=== PATIENT | male | born 1950 | race Caucasian/White ===

== ENCOUNTER 2019-05-25 13:21 | Inpatient (IN) | payer MEDICARE ==
[2019-05-25] MEDS ORDERED: SODIUM CHLORIDE 0.9% 1,000 ML IV ONE (15:03)
[2019-05-25 16:03] LABS: Basophils # (A) 0.1 k/uL (0-0.2); Basophils % (A) 2 %; Eosinophils # (A) 0.1 k/uL (0-0.7); Eosinophils % (A) 1 %; HCT 46.6 % (39.0-53.0); HGB 13.2 gm/dL (13.0-17.5); Hypochromasia Marked; Lymphocytes # (A) 0.8 k/uL (1.0-4.8); Lymphocytes % (A) 12 %; MCH 25.5 pg (25.0-35.0); MCHC 28.4 g/dL (31.0-37.0); MCV 89.6 fL (80.0-100.0); Mean Platelet Volume 8.9; Monocytes # (A) 0.6 k/uL (0-1.0); Monocytes % (A) 9 %; Neutrophils # (A) 5.1 k/uL (1.3-7.7); Neutrophils % (A) 75 %; Platelet Count 191 k/uL (150-450); RDW 15.3 % (11.5-15.5); WBC 6.9 k/uL (3.8-10.6)
[2019-05-25 16:05] LABS: Appearance,Urine Clear (Clear); Bilirubin,Urine Negative (Negative); Blood,Urine Negative (Negative); Color,Urine Light Yellow; Glucose,Urine (UA) Negative (Negative); Ketones,Urine Negative (Negative); Leukocyte Esterase,Urine Negative (Negative); Nitrite,Urine Negative (Negative); Protein,Urine Negative (Negative); Specific Gravity,Urine 1.006 (1.001-1.035); Urobilinogen,Urine <2.0 mg/dL (<2.0)
[2019-05-25 16:06] LABS: Albumin 3.9 g/dL (3.5-5.0); Potassium 4.8 mmol/L (3.5-5.1); Total Bilirubin 1.4 mg/dL (0.2-1.3); Total Protein 6.5 g/dL (6.3-8.2)
[2019-05-25 16:11] LABS: Partial Thromboplastin Time 24.7 sec (22.0-30.0)
--- NOTE | 2019-05-25 16:38 | ED ---
Altered Mental Status HPI - General Chief Complaint: Altered Mental Status Stated Complaint: Weakness Time Seen by Provider: 05/25/19 14:47 Source: EMS Mode of arrival: EMS Limitations: no limitations - History of Present Illness Initial Comments: Patient is a 68-year-old male, Past medical history of A. fib, heart failure, COPD, dementia, hypertension, presenting to the emergency Department with altered mental status per family members. Sister states patient lives alone at his house and does have a visiting physician. The past 2 days family members state he is not speaking appropriately and seems confused. Patient has been hospitalized in the past for sepsis as well as UTI that cause confusion. Patient is denying any pain at this time. Patient is having some discharge from his bilateral lower legs. Patient has been having an ongoing issue with bilateral lower leg cellulitis. Patient is currently not taking medicine for this. Patient denies any falls. Patient's family members and visiting physicians states they do not think patient has been taking his at home medications. - Related Data Home Medications Medication Instructions Recorded Confirmed Metoprolol Tartrate [Lopressor] 100 mg PO BID 08/03/15 05/25/19 Omeprazole [PriLOSEC] 40 mg PO DAILY 06/19/16 05/25/19 Sertraline HCl 50 mg PO DAILY 06/19/16 05/25/19 Allopurinol [Zyloprim] 300 mg PO DAILY 05/25/19 05/25/19 Apixaban [Eliquis] 5 mg PO BID 05/25/19 05/25/19 Aspirin EC [Ecotrin] 325 mg PO DAILY 05/25/19 05/25/19 Atorvastatin [Lipitor] 40 mg PO HS 05/25/19 05/25/19 Colchicine 0.6 mg PO BID 05/25/19 05/25/19 Ergocalciferol [Vitamin D2] 50,000 unit PO Q7D 05/25/19 05/25/19 Furosemide [Lasix] See Taper PO DIRECTED 05/25/19 05/25/19 Krill Oil 1,000 mg PO DAILY 05/25/19 05/25/19 Lisinopril [Prinivil] 5 mg PO DAILY 05/25/19 05/25/19 Loperamide HCl [Imodium A-D] 2 mg PO QID PRN 05/25/19 05/25/19 Nitroglycerin Sl Tabs [Nitrostat] 0.4 mg SUBLINGUAL Q5M PRN 05/25/19 05/25/19 Oxybutynin Chloride [Oxybutynin 10 mg PO DAILY 05/25/19 05/25/19 Chloride ER] Spironolactone 50 mg PO BID 05/25/19 05/25/19 Tamsulosin [Flomax] 0.8 mg PO [id number] 05/25/19 05/25/19 metFORMIN HCL [Glucophage] 500 mg PO BID 05/25/19 05/25/19 Previous Rx's Medication Instructions Recorded Digoxin [Lanoxin] 125 mcg PO DAILY #30 tab 08/07/15 Montelukast [Singulair] 10 mg PO DAILY #0 NS 08/07/15 Allergies Allergy/AdvReac Type Severity Reaction Status Date / Time No Known Allergies Allergy Verified 05/25/19 15:18 Review of Systems ROS Statement: Those systems with pertinent positive or pertinent negative responses have been documented in the HPI. ROS Other: All systems not noted in ROS Statement are negative. Past Medical History Past Medical History: Atrial Fibrillation, Heart Failure, COPD, Dementia, GERD/Reflux, Hyperlipidemia, Hypertension, Myocardial Infarction (NM), Prostate Disorder, Renal Disease, Skin Disorder Additional Past Medical History / Comment(s): Mild dementia, cardiomyopathy, la st known EF was 20-25%, afib with RVR in past, chronic lower leg edema, chronic vascular cellulitis lower extremities, lumbar DDD, back pain, previous history of GI bleed, doudenitis, diverticulum, BPH, athrities bilateral knees and back, COPD, chronic lower extremity once, history of fall Last Myocardial Infarction Date:: 07/2015 History of Any Multi-Drug Resistant Organisms: None Reported Past Surgical History: Heart Catheterization, Orthopedic Surgery Additional Past Surgical History / Comment(s): 2002 cardiac cath-no intervention, R knee arthroscopy, L knee I & D for prepatellar bursa infection - arthrotomy, PICC line insertion with eventual removal, lumbar and bilateral knee steroid injections, cataract surgery bilaterally,EGD/colonoscopy. Past Anesthesia/Blood Transfusion Reactions: No Reported Reaction Past Psychological History: Anxiety, Depression Smoking Status: Never smoker Past Alcohol Use History: Occasional Past Drug Use History: None Reported - Past Family History Father History Unknown: Yes Family Medical History: Coronary Artery Disease (CAD), Myocardial Infarction (NM) Additional Family Medical History / Comment(s): Father had CABG. He passed from a NM at the age of 62 yrs. Mother History Unknown: Yes Family Medical History: Cancer, Congestive Heart Failure (CHF), COPD, Diabetes Mellitus Additional Family Medical History / Comment(s): Mother had lung cancer. She was a smoker. She at the age of 62 yrs. General Exam - General Exam Comments Initial Comments: GENERAL: Well-nourished, seems slightly confused, is not sure why he is in the ER. HEAD: Atraumatic, normocephalic. Mild swelling to the left side of his face. EYES: Pupils equal round and reactive to light, extraocular movements intact, sclera anicteric, conjunctiva are normal. ENT: TMs normal, nares patent, oropharynx clear without exudates. Moist mucous membranes. NECK: Normal range of motion, supple without lymphadenopathy or JVD. LUNGS: Decreased breath sounds bilateral lower lobes, No wheezes rales or rhonchi. HEART: Irregular rate and rhythm without murmurs, rubs or gallops. ABDOMEN: Soft, nontender, normoactive bowel sounds. No guarding, no rebound. No masses appreciated. : Deferred EXTREMITIES: Bilateral lower leg cellulitis with small open sores that are actively weeping. NEUROLOGICAL: Cranial nerves II through XII grossly intact. Normal speech, normal gait. PSYCH: Normal mood, normal affect. SKIN: Warm, Dry, normal turgor. Limitations: no limitations Course Vital Signs 05/25/19 05/25/19 05/25/19 13:36 14:42 16:00 Temperature 97.4 F L Pulse Rate 112 H 88 91 Respiratory 20 18 Rate Blood Pressure 123/95 O2 Sat by Pulse 97 96 Oximetry 05/25/19 17:00 Temperature Pulse Rate 83 Respiratory 18 Rate Blood Pressure 128/96 O2 Sat by Pulse 96 Oximetry Medical Decision Making - Medical Decision Making Patient is a 68-year-old male presenting with altered mental status. Patient is afebrile upon arrival, patient has no pain. Patient has bilateral lower leg cellulitis. There is no white count, coags are normal, lactic acid is 2.3, troponin is 0.064. UA is normal, no signs of infection. Chest x-ray shows c ardiomegaly, no acute processes. CT of the brain shows no acute abnormalities. Patient will be admitted for bilateral lower leg cellulitis as well as cardiac monitoring. Patient is agreement with this plan of care. Patient will be started on antibiotics as well as continue with fluids. Case discussed with Dr. Worley. Patient accepted by Dr. Cruz. - Lab Data Result diagrams: 05/25/19 15:40 05/25/19 15:40 Lab Results 05/25/19 05/25/19 05/25/19 Range/Units 15:40 15:40 15:40 WBC 6.9 (3.8-10.6) k/uL RBC 5.20 (4.30-5.90) m/uL Hgb 13.2 (13.0-17.5) gm/dL Hct 46.6 (39.0-53.0) % MCV 89.6 (80.0-100.0) fL MCH 25.5 (25.0-35.0) pg MCHC 28.4 L (31.0-37.0) g/dL RDW 15.3 (11.5-15.5) % Plt Count 191 (150-450) k/uL Neutrophils % 75 % Lymphocytes % 12 % Monocytes % 9 % Eosinophils % 1 % Basophils % 2 % Neutrophils # 5.1 (1.3-7.7) k/uL Lymphocytes # 0.8 L (1.0-4.8) k/uL Monocytes # 0.6 (0-1.0) k/uL Eosinophils # 0.1 (0-0.7) k/uL Basophils # 0.1 (0-0.2) k/uL Hypochromasia Marked PT 11.0 (9.0-12.0) sec INR 1.0 (<1.2) APTT 24.7 (22.0-30.0) sec Sodium 139 (137-145) mmol/L Potassium 4.8 (3.5-5.1) mmol/L Chloride 103 (98-107) mmol/L Carbon Dioxide 25 (22-30) mmol/L Anion Gap 11 mmol/L BUN 27 H (9-20) mg/dL Creatinine 1.03 (0.66-1.25) mg/dL Est GFR (CKD-EPI)AfAm 85 (>60 ml/min/1.73 sqM) Est GFR (CKD-EPI)NonAf 74 (>60 ml/min/1.73 sqM) Glucose 91 (74-99) mg/dL Lactic Ac Sepsis Rflx Plasma Lactic Acid [place] (0.7-2.0) mmol/L Calcium 9.0 (8.4-10.2) mg/dL Total Bilirubin 1.4 H (0.2-1.3) mg/dL AST 40 (17-59) U/L ALT 23 (21-72) U/L Alkaline Phosphatase 57 (38-126) U/L Troponin I (0.000-0.034) ng/mL Total Protein 6.5 (6.3-8.2) g/dL Albumin 3.9 (3.5-5.0) g/dL Urine Color Urine Appearance (Clear) Urine pH (5.0-8.0) Ur Specific [place] (1.001-1.035) Urine Protein (Negative) Urine Glucose (UA) (Negative) Urine Ketones (Negative) Urine Blood (Negative) Urine Nitrite (Negative) Urine Bilirubin (Negative) Urine Urobilinogen (<2.0) mg/dL Ur Leukocyte Esterase (Negative) 05/25/19 05/25/19 05/25/19 Range/Units 15:40 15:40 15:40 WBC (3.8-10.6) k/uL RBC (4.30-5.90) m/uL Hgb (13.0-17.5) gm/dL Hct (39.0-53.0) % MCV (80.0-100.0) fL MCH (25.0-35.0) pg MCHC (31.0-37.0) g/dL RDW (11.5-15.5) % Plt Count (150-450) k/uL Neutrophils % % Lymphocytes % % Monocytes % % Eosinophils % % Basophils % % Neutrophils # (1.3-7.7) k/uL Lymphocytes # (1.0-4.8) k/uL Monocytes # (0-1.0) k/uL Eosinophils # (0-0.7) k/uL Basophils # (0-0.2) k/uL Hypochromasia PT (9.0-12.0) sec INR (<1.2) APTT (22.0-30.0) sec Sodium (137-145) mmol/L Potassium (3.5-5.1) mmol/L Chloride (98-107) mmol/L Carbon Dioxide (22-30) mmol/L Anion Gap mmol/L BUN (9-20) mg/dL Creatinine (0.66-1.25) mg/dL Est GFR (CKD-EPI)AfAm (>60 ml/min/1.73 sqM) Est GFR (CKD-EPI)NonAf (>60 ml/min/1.73 sqM) Glucose (74-99) mg/dL Lactic Ac Sepsis Rflx Plasma Lactic Acid [place] 2.3 H* (0.7-2.0) mmol/L Calcium (8.4-10.2) mg/dL Total Bilirubin (0.2-1.3) mg/dL AST (17-59) U/L ALT (21-72) U/L Alkaline Phosphatase (38-126) U/L Troponin I 0.064 H* (0.000-0.034) ng/mL Total Protein (6.3-8.2) g/dL Albumin (3.5-5.0) g/dL Urine Color Light Yellow Urine Appearance Clear (Clear) Urine pH 5.0 (5.0-8.0) Ur Specific [place] 1.006 (1.001-1.035) Urine Protein Negative (Negative) Urine Glucose (UA) Negative (Negative) Urine Ketones Negative (Negative) Urine Blood Negative (Negative) Urine Nitrite Negative (Negative) Urine Bilirubin Negative (Negative) Urine Urobilinogen <2.0 (<2.0) mg/dL Ur Leukocyte Esterase Negative (Negative) 05/25/19 Range/Units 16:13 WBC (3.8-10.6) k/uL RBC (4.30-5.90) m/uL Hgb (13.0-17.5) gm/dL Hct (39.0-53.0) % MCV (80.0-100.0) fL MCH (25.0-35.0) pg MCHC (31.0-37.0) g/dL RDW (11.5-15.5) % Plt Count (150-450) k/uL Neutrophils % % Lymphocytes % % Monocytes % % Eosinophils % % Basophils % % Neutrophils # (1.3-7.7) k/uL Lymphocytes # (1.0-4.8) k/uL Monocytes # (0-1.0) k/uL Eosinophils # (0-0.7) k/uL Basophils # (0-0.2) k/uL Hypochromasia PT (9.0-12.0) sec INR (<1.2) APTT (22.0-30.0) sec Sodium (137-145) mmol/L Potassium (3.5-5.1) mmol/L Chloride (98-107) mmol/L Carbon Dioxide (22-30) mmol/L Anion Gap mmol/L BUN (9-20) mg/dL Creatinine (0.66-1.25) mg/dL Est GFR (CKD-EPI)AfAm (>60 ml/min/1.73 sqM) Est GFR (CKD-EPI)NonAf (>60 ml/min/1.73 sqM) Glucose (74-99) mg/dL Lactic Ac Sepsis Rflx Y Plasma Lactic Acid [place] (0.7-2.0) mmol/L Calcium (8.4-10.2) mg/dL Total Bilirubin (0.2-1.3) mg/dL AST (17-59) U/L ALT (21-72) U/L Alkaline Phosphatase (38-126) U/L Troponin I (0.000-0.034) ng/mL Total Protein (6.3-8.2) g/dL Albumin (3.5-5.0) g/dL Urine Color Urine Appearance (Clear) Urine pH (5.0-8.0) Ur Specific [place] (1.001-1.035) Urine Protein (Negative) Urine Glucose (UA) (Negative) Urine Ketones (Negative) Urine Blood (Negative) Urine Nitrite (Negative) Urine Bilirubin (Negative) Urine Urobilinogen (<2.0) mg/dL Ur Leukocyte Esterase (Negative) - EKG Data EKG Comments: Ventricular rate 87, QRS 96, QTC 493. A. fib, ST depressions in V1 and V2 or V3. Disposition Clinical Impression: Altered mental status, Bilateral lower leg cellulitis Disposition: ADMITTED IP TO THIS [facility] Condition: Stable Is patient prescribed a controlled substance at d/c from ED?: No Referrals: Pj Pal MD [Primary Care Provider] - 1-2 days Decision Date: 05/25/19 Decision Time: 18:50
--- NOTE | 2019-05-25 16:56 | XR ---
EXAMINATION TYPE: XR chest 2V DATE OF EXAM: 05/25/2019 COMPARISON: Prior chest x-ray 06/20/2016 HISTORY: Altered mental status TECHNIQUE: Frontal and lateral views of the chest are obtained. FINDINGS: There is no focal air space opacity, pleural effusion, or pneumothorax seen. Central vasc ularity is somewhat increased. The cardiac silhouette size is stable and enlarged. The osseous stru ctures are intact. Prominent lung volumes with flattening the hemidiaphragms suggests underlying COPD . Patient is rotated. There are overlying cardiac leads. IMPRESSION: Cardiomegaly. Rotated exam.
--- NOTE | 2019-05-25 18:31 | CT ---
EXAMINATION: CT brain wo con DATE AND TIME: 05/25/2019 5:40 PM CLINICAL INDICATION: [facility]; AMS TECHNIQUE: Standard departmental protocol.; 1173.4; COMPARISON: None. FINDINGS: The calvarium is intact. There is no intracranial hemorrhage. There is no intracranial mass or mass effect. No definite new intra-axial or extra-axial attenuation defect. Bilateral low attenuation within the bloom radiata and centrum semiovale noted symmetrically, entire ly nonspecific but usually reflecting small vessel ischemic change. The paranasal sinuses, middle ear cavities, and mastoid sinus air cells are clear. The orbits are unremarkable. IMPRESSION: NO ACUTE PROCESS.
[2019-05-25] MEDS ORDERED: NALOXONE 0.4 MG/ML 1 ML VIAL IV PRN (18:48)
[2019-05-25] MEDS ORDERED: ACETAMINOPHEN TAB 325 MG TAB PO PRN (18:48)
[2019-05-25] MEDS ORDERED: ONDANSETRON 4 MG/2 ML VIAL IVP PRN (18:48)
[2019-05-25] MEDS: SODIUM CHLORIDE 0.9% 1,000 ML IV SCH (19:14)
[2019-05-25 22:28] VITALS: BMI 40.9
[2019-05-26 07:19] LABS: Glucose,Whole Blood 89 mg/dL (75-99)
[2019-05-26] MEDS: SPIRONOLACTONE 25 MG TAB PO SCH ×2 (07:53→08:51)
[2019-05-26] MEDS: ATORVASTATIN 40 MG TAB PO SCH (07:54)
[2019-05-26] MEDS: METOPROLOL TARTRATE 50 MG TAB PO SCH ×2 (07:54→08:51)
[2019-05-26] MEDS: metFORMIN 500 MG TAB PO SCH ×2 (07:54→08:51)
[2019-05-26] MEDS: APIXABAN 5 MG TAB PO SCH ×2 (07:54→08:52)
[2019-05-26] MEDS: COLCHICINE 0.6 MG EACH PO SCH ×2 (07:54→08:51)
[2019-05-26] MEDS: MONTELUKAST 10 MG TAB PO SCH (08:51)
[2019-05-26] MEDS: TAMSULOSIN 0.4 MG CAP.ER.24H PO SCH (08:51)
[2019-05-26] MEDS: PANTOPRAZOLE 40 MG TABLET PO SCH (08:51)
[2019-05-26] MEDS: ASPIRIN 325 MG TAB PO SCH (08:51)
[2019-05-26] MEDS: FUROSEMIDE 10 MG/ML 4 ML VIAL IV SCH (08:51)
[2019-05-26] MEDS: ALLOPURINOL 300 MG TAB PO SCH (08:51)
[2019-05-26] MEDS: DIGOXIN 125 MCG TAB PO SCH (08:51)
[2019-05-26] MEDS: LISINOPRIL 5 MG TAB PO SCH (08:51)
[2019-05-26] MEDS: SERTRALINE 50 MG TAB PO SCH (08:52)
[2019-05-26 09:13] LABS: Albumin 4.1 g/dL (3.5-5.0); Calcium 9.8 mg/dL (8.4-10.2); Total Bilirubin 1.5 mg/dL (0.2-1.3); Total Protein 6.7 g/dL (6.3-8.2)
[2019-05-26] MEDS: OXYBUTYNIN 10 MG TAB.ER.24 PO SCH (10:36)
[2019-05-26] MEDS: SODIUM CHLORIDE 0.9% 1,000 ML IV SCH (10:36)
[2019-05-26 12:05] LABS: Glucose,Whole Blood 97 mg/dL (75-99)
--- NOTE | 2019-05-26 14:29 | P.CON ---
Consult Note - . Consult date: 05/26/19 Assessment/Plan:: This is a 68-year-old gentleman being seen by the wound care for multiple ulcerations to bilateral lower extremities. Patient has history of cellulitis. Patient denies any history of peripheral vascular disease. Patient presents with erythema, edema, multiple open ulcerations to bilateral lower extremities. Extremities are weeping sanguineous fluid. Review of systems: integumentary:reports redness, edema, open wounds to bilateral legs. Denies rashes or itching Physical exam: integumentary:see HPI Assessment/plan: 1. Nonpressure nonhealing ulceration with fatty layer exposure to bilateral lower extremities.aapply triad to bilateral lower extremities wrap with rolled gauze and secure with 2 layers of Tubigrip to help with swelling. Elevate legs 3 times a day for 30 minutes, vascular workup to be completed. 2. Venous stasis ulcerations. See above Thank you for the consultation any questions please contact the wound care center. DNP note has been reviewed and discussed with Dr. Sepulveda and the impression and plan of care has been directed as dictated.
--- NOTE | 2019-05-26 14:50 | P.HPIM ---
History of Present Illness H&P Date: 05/26/19 This is a 68-year-old morbidly obese male patient of Dr. Pal with past medical history of hypertension with hypertensive cardiovascular disease, ischemic cardiopathy, chronic systolic heart failure, non-ST elevated myocardial infarction, COPD, chronic A. fib and chronic edema and mild dementia. Patient presented to [facility] emergency center with altered mental status and confusion as well as concern that he was not taking this medications as relayed by the family members but the patient at the time of this evaluation adamantly denies any confusion. He states that he came in due to lower extremity redness and edema with wounds. He states he has had this for many years but is currently in exacerbation. Legs are more red than his normal. It is sometimes itchy. He states his edema to the lower extremities is about his baseline. Initial vital signs: Afebrile, heart rate 112, blood pressure 123/95, pulse ox 97%. CBC was unremarkable. BUN 27 creatinine 1.03, blood sugar 91. CAT scan of the brain showed no acute abnormalities. Total bilirubin 1.4 and other liver function tests within normal limits, albumin 3.9. Initial lactic acid 2.3 and repeat 1.4. ProBNP 6210. Troponin 0.064. Urinalysis negative for infection. Patient was started on ceftriaxone and admitted to the cardiac stepdown unit. Consults added for cardiology for elevated troponin and repeat troponins of been ordered as well as echocardiogram. Consult with Dr. Soares added for lower extremity cellulitis and wound care consult as well. Dr. Moran has been consulted regarding venous stasis. Review of Systems Constitutional: Reports weakness, Denies anorexia, Denies chills, Denies fatigue, Denies fever, Denies lethargy, Denies malaise, Denies poor appetite Eyes: denies blurred vision, denies pain Ears, nose, mouth and throat: Denies dysphagia, Denies nasal congestion, Denies nasal discharge, Denies vertigo Cardiovascular: Reports edema, Reports leg edema, Denies shortness of breath, Denies syncope Respiratory: Denies cough, Denies cough with sputum, Denies dyspnea, Denies excessive sputum, Denies hemoptysis, Denies home oxygen, Denies respiratory infections, Denies wheezing Gastrointestinal: Denies abdominal pain, Denies diarrhea, Denies loss of appetite, Denies nausea, Denies vomiting Genitourinary: Denies dysuria, Denies urinary hesitancy, Denies urinary retention Musculoskeletal: Reports muscle weakness, Denies frequent falls, Denies myalgias Integumentary: Reports color changes, Reports darkening of skin, Reports wounds, Denies pruritus, Denies rash Neurological: Reports change in mentation, Denies change in speech, Denies numbness, Denies weakness Psychiatric: Denies anxiety, Denies depression Past Medical History Past Medical History: Atrial Fibrillation, Heart Failure, COPD, Dementia, GERD/Reflux, Hyperlipidemia, Hypertension, Myocardial Infarction ([place]), Prostate Disorder, Renal Disease, Skin Disorder Additional Past Medical History / Comment(s): Mild dementia, cardiomyopathy, last known EF was 20-25%, afib with RVR in past, chronic lower leg edema, chronic vascular cellulitis lower extremities, lumbar DDD, back pain, previous history of GI bleed, doudenitis, diverticulum, BPH, athrities bilateral knees and back, COPD, chronic lower extremity once, history of fall Last Myocardial Infarction Date:: 07/2015 History of Any Multi-Drug Resistant Organisms: None Reported Past Surgical History: Heart Catheterization, Orthopedic Surgery Additional Past Surgical History / Comment(s): 2002 cardiac cath-no intervention, R knee arthroscopy, L knee I & D for prepatellar bursa infection -arthrotomy, PICC line insertion with eventual removal, lumbar and bilateral knee steroid injections, cataract surgery bilaterally,EGD/colonoscopy. Past Anesthesia/Blood Transfusion Reactions: No Reported Reaction Past Psychological History: Anxiety, Depression Additional Psychological History / Comment(s): Pt lives alone. He ambulates with a walker. His brother, Jason comes to his home 3 days a week and does pt's shopping and cleans his home. His sister, Katy transports him to [place] since he no longer drives. He is a of 2 yrs. VNA nurse comes to his home once a month to manage medications and check him over. Smoking Status: Never smoker Past Drug Use History: None Reported - Past Family History Father History Unknown: Yes Family Medical History: Coronary Artery Disease (CAD), Myocardial Infarction ([place]) Additional Family Medical History / Comment(s): Father had CABG. He passed from a [place] at the age of 62 yrs. Mother History Unknown: Yes Family Medical History: Cancer, Congestive Heart Failure (CHF), COPD, Diabetes Mellitus Additional Family Medical History / Comment(s): Mother had lung cancer. She was a smoker. She at the age of 62 yrs. Medications and Allergies Home Medications Medication Instructions Recorded Confirmed Type Metoprolol Tartrate [Lopressor] 100 mg PO BID 08/03/15 05/25/19 History Digoxin [Lanoxin] 125 mcg PO DAILY #30 tab 08/07/15 05/25/19 Rx Montelukast [Singulair] 10 mg PO DAILY #0 NS 08/07/15 05/25/19 Rx Omeprazole [PriLOSEC] 40 mg PO DAILY 06/19/16 05/25/19 History Sertraline HCl 50 mg PO DAILY 06/19/16 05/25/19 History Allopurinol [Zyloprim] 300 mg PO DAILY 05/25/19 05/25/19 History Apixaban [Eliquis] 5 mg PO BID 05/25/19 05/25/19 History Aspirin EC [Ecotrin] 325 mg PO DAILY 05/25/19 05/25/19 History Atorvastatin [Lipitor] 40 mg PO HS 05/25/19 05/25/19 History Colchicine 0.6 mg PO BID 05/25/19 05/25/19 History Ergocalciferol [Vitamin D2] 50,000 unit PO Q7D 05/25/19 05/25/19 History Furosemide [Lasix] See Taper PO DIRECTED 05/25/19 05/25/19 History Krill Oil 1,000 mg PO DAILY 05/25/19 05/25/19 History Lisinopril [Prinivil] 5 mg PO DAILY 05/25/19 05/25/19 History Loperamide HCl [Imodium A-D] 2 mg PO QID PRN 05/25/19 05/25/19 History Nitroglycerin Sl Tabs [Nitrostat] 0.4 mg SUBLINGUAL Q5M PRN 05/25/19 05/25/19 History Oxybutynin Chloride [Oxybutynin 10 mg PO DAILY 05/25/19 05/25/19 History Chloride ER] Spironolactone 50 mg PO BID 05/25/19 05/25/19 History Tamsulosin [Flomax] 0.8 mg PO PC-BRKFST 05/25/19 05/25/19 History metFORMIN HCL [Glucophage] 500 mg PO BID 05/25/19 05/25/19 History Allergies Allergy/AdvReac Type Severity Reaction Status Date / Time No Known Allergies Allergy Verified 05/25/19 15:18 Physical Exam Vitals: Vital Signs Temp Pulse Pulse Resp BP BP Pulse Ox 05/26/19 11:33 97 18 05/26/19 11:02 98.6 F 97 18 99/66 94 L 05/26/19 08:00 97.6 F 93 18 131/80 98 05/26/19 04:00 97.6 F 91 106/68 96 05/26/19 00:00 98.2 F 68 18 113/67 96 05/25/19 22:17 97.8 F 86 18 128/88 97 05/25/19 20:17 97 F L 92 18 111/80 96 05/25/19 17:00 83 18 128/96 96 05/25/19 16:00 91 05/25/19 14:42 88 18 96 05/25/19 13:36 97.4 F L 112 H 20 123/95 97 Intake and Output 05/25/19 05/26/19 05/26/19 22:59 06:59 14:59 Output Total 400 400 Balance -400 -400 Output: Urine 400 400 Other: Voiding Method Toilet # Voids 1 # Bowel Movements 1 Weight 108.2 kg - Constitutional General appearance: cooperative, no distress, morbidly obese. - EENT Eyes: Reports anicteric sclerae, Reports normal apperance, ENT: Reports hard of hearing, Reports normal oropharynx, D - Neck Neck: Reports normal ROM, Denies lymphadenopathy, Denies rigidity, Denies stridor, Denies thyromegaly Carotids: bilateral: upstroke normal, upstroke delayed Thyroid: bilateral: normal size - Respiratory Respiratory: bilateral: diminished, dullness, no rales, rhonchi, wheezing - Cardiovascular Rhythm: irregularly irregular Heart sounds: normal: S1, S2 Abnormal Heart Sounds: Reports systolic murmur, Reports S3 Gallop - Gastrointestinal General gastrointestinal: Reports hepatomegaly, Reports normal bowel sounds, Reports soft, no tenderness - Integumentary acute and chronic vascular cellulitis of the lower extremity from the knee down with open ulcer right pretibial, toes are dusky blue color 3+ pedal edema bilaterally, dorsalis pedis +2. - Neurologic Neurologic: CNII-XII intact - Musculoskeletal Musculoskeletal: Reports gait not evaluated, Reports generalized weakness, - Psychiatric Psychiatric: A&O x's 3, appropriate affect, intact judgment & insight Results CBC & Chem 7: 05/25/19 15:40 05/26/19 08:27 Labs: Abnormal Lab Results - Last 24 Hours (Table) 05/25/19 05/25/19 05/25/19 Range/Units 15:40 15:40 15:40 MCHC 28.4 L (31.0-37.0) g/dL Lymphocytes # 0.8 L (1.0-4.8) k/uL D-Dimer (<0.60) mg/L FEU BUN 27 H (9-20) mg/dL Plasma Lactic Acid Jaycob (0.7-2.0) mmol/L Total Bilirubin 1.4 H (0.2-1.3) mg/dL Troponin I 0.064 H* (0.000-0.034) ng/mL 05/25/19 05/26/19 05/26/19 Range/Units 15:40 08:27 08:27 MCHC (31.0-37.0) g/dL Lymphocytes # (1.0-4.8) k/uL D-Dimer 0.79 H (<0.60) mg/L FEU BUN 26 H (9-20) mg/dL Plasma Lactic Acid Jaycob 2.3 H* (0.7-2.0) mmol/L Total Bilirubin 1.5 H (0.2-1.3) mg/dL Troponin I (0.000-0.034) ng/mL Thrombosis Risk Factor Assmnt - DVT/VTE Prophylaxis DVT/VTE Prophylaxis: Pharmacologic Prophylaxis ordered - Choose All That Apply Any of the Below Risk Factors Present?: Yes Each Factor Represents 1 point: Abnormal pulmonary function (COPD), Obesity (BMI >25), Swollen legs (current) Other Risk Factors: Yes Each Risk Factor Represents 2 Points: Age 61-74 years Thrombosis Risk Factor Assessment Total Risk Factor Score: 5 Thrombosis Risk Factor Assessment Level: High Risk Assessment and Plan Plan: 1. Acute metabolic encephalopathy secondary to lower extremity cellulitis and dementia. Patient appears to be at baseline at this time. 2. Acute on chronic lower extremity cellulitis with venous stasis ulcers. Patient is on Rocephin. Consult with Dr. Soares and wound care team. Wound culture to be obtained. Continue Lasix 40 mg IV every 12 hours, Aldactone 50 mg twice daily. 3. Elevated troponins of unclear significance. Repeat troponins, echocardiogram and cardiology consult requested. Patient denies having any chest pain. 4. History of coronary artery disease and previous myocardial infarction. Cardiology is on consult. Continue aspirin 325 mg daily, Lopressor 100 mg 2 times daily, lisinopril 5 mg daily. 5. Chronic systolic heart failure and ischemic cardiomyopathy. Continue Lasix IV, Lopressor, lisinopril, Aldactone. Monitor daily electrolytes, I&O's and weight. 6. Chronic atrial fibrillation. Continue Lopressor, digoxin 125 g daily and eliquis 5 mg twice daily. 7. Hyperlipidemia. Continue Lipitor 40 mg daily 8. Hypertension, hypertensive cardiovascular disease. Continue lisinopril 5 mg twice daily, Lopressor 100 mg 2 times daily. 9. COPD, stable without exacerbation. Continue Singulair 10 mg daily. 10. Morbid obesity. 11. Diabetes mellitus type 2. Continue metformin 500 mg twice daily, NovoLog scale before meals and at bedtime. 12. Gout, chronic. Continue allopurinol and colchicine. 13. Benign prostatic hypertrophy. Continue Flomax 0.8 mg daily and monitor for urinary retention. 14. Recurrent depression. Continue Zoloft 50 mg daily. 15. Gastroesophageal reflux disease and GI prophylaxis. Continue Protonix. 16. DVT prophylaxis. Eliquis. Patient will be admitted to the hospital for a minimum of 2 night stay. Discharge plan: To be determined. PT and OT consults will be requested. Impression and plan of care have been directed as dictated by the signing physician. Kusum Alvarez nurse practitioner acting as scribe for signing physician.
--- NOTE | 2019-05-26 15:13 | P.CONS ---
History of Present Illness - Reason for Consult Consult date: 05/26/19 Lower extremity cellulitis - History of Present Illness This is a 68-year-old morbidly obese male patient well known to ID service as he follows in the office with long-standing history of chronic lower extremity cellulitis. He also has past medical history of hypertension with hypertensive cardiovascular disease, ischemic cardiopathy, chronic systolic heart failure, non-ST elevated myocardial infarction, COPD, chronic A. fib and chronic edema and mild dementia. Patient presented to [facility] emergency center with altered mental status and confusion as well as concern that he was not taking this medications as relayed by the family members but the patient at the time of this evaluation adamantly denies any confusion. He states that he came in due to lower extremity redness and edema with wounds. He states he has had this for many years but is currently in exacerbation. Legs are more red than his normal. It is sometimes itchy. He states his edema to the lower extremities is about his baseline. Initial vital signs: Afebrile, heart rate 112, blood pressure 123/95, pulse ox 97%. CBC was unremarkable. BUN 27 creatinine 1.03, blood sugar 91. CAT scan of the brain showed no acute ab normalities. Total bilirubin 1.4 and other liver function tests within normal limits, albumin 3.9. Initial lactic acid 2.3 and repeat 1.4. ProBNP 6210. Troponin 0.064. Urinalysis negative for infection. Patient was started on ceftriaxone and admitted to the cardiac stepdown unit. Consults added for cardiology for elevated troponin and Dr. Moran has been consulted regarding venous stasis. Review of Systems Constitutional: Reports weakness, Denies anorexia, Denies chills, Denies fatigue, Denies fever, Denies lethargy, Denies malaise, Denies poor appetite Eyes: denies blurred vision, denies pain Ears, nose, mouth and throat: Denies dysphagia, Denies nasal congestion, Denies nasal discharge, Denies vertigo Cardiovascular: Reports edema, Reports leg edema, Denies shortness of breath, Denies syncope Respiratory: Denies cough, Denies cough with sputum, Denies dyspnea, Denies excessive sputum, Denies hemoptysis, Denies home oxygen, Denies respiratory infections, Denies wheezing Gastrointestinal: Denies abdominal pain, Denies diarrhea, Denies loss of appetite, Denies nausea, Denies vomiting Genitourinary: Denies dysuria, Denies urinary hesitancy, Denies urinary retention Musculoskeletal: Reports muscle weakness, Denies frequent falls, Denies myalgias Integumentary: Reports color changes, Reports darkening of skin, Reports wounds, Denies pruritus, Denies rash Neurological: Reports change in mentation, Denies change in speech, Denies numbness, Denies weakness Psychiatric: Denies anxiety, Denies depression Past Medical History Past Medical History: Atrial Fibrillation, Heart Failure, COPD, Dementia, GERD/Reflux, Hyperlipidemia, Hypertension, Myocardial Infarction ([place]), Prostate Disorder, Renal Disease, Skin Disorder Additional Past Medical History / Comment(s): Mild dementia, cardiomyopathy, last known EF was 20-25%, afib with RVR in past, chronic lower leg edema, chronic vascular cellulitis lower extremities, lumbar DDD, back pain, previous history of GI bleed, doudenitis, diverticulum, BPH, athrities bilateral knees and back, COPD, chronic lower extremity once, history of fall Last Myocardial Infarction Date:: 07/2015 History of Any Multi-Drug Resistant Organisms: None Reported Past Surgical History: Heart Catheterization, Orthopedic Surgery Additional Past Surgical History / Comment(s): 2002 cardiac cath-no intervention, R knee arthroscopy, L knee I & D for prepatellar bursa infection - arthrotomy, PICC line insertion with eventual removal, lumbar and bilateral knee steroid injections, cataract surgery bilaterally,EGD/colonoscopy. Past Anesthesia/Blood Transfusion Reactions: No Reported Reaction Past Psychological History: Anxiety, Depression Additional Psychological History / Comment(s): Pt lives alone. He ambulates with a walker. His brother, Jason comes to his home 3 days a week and does pt's shopping and cleans his home. His sister, Katy transports him to [place] since he no longer drives. He is a of 2 yrs. VNA nurse comes to his home once a month to manage medications and check him over. Smoking Status: Never smoker Past Drug Use History: None Reported - Past Family History Father History Unknown: Yes Family Medical History: Coronary Artery Disease (CAD), Myocardial Infarction ([place]) Additional Family Medical History / Comment(s): Father had CABG. He passed from a [place] at the age of 62 yrs. Mother History Unknown: Yes Family Medical History: Cancer, Congestive Heart Failure (CHF), COPD, Diabetes Mellitus Additional Family Medical History / Comment(s): Mother had lung cancer. She was a smoker. She at the age of 62 yrs. Medications and Allergies Home Medications Medication Instructions Recorded Confirmed Type Metoprolol Tartrate [Lopressor] 100 mg PO BID 08/03/15 05/25/19 History Digoxin [Lanoxin] 125 mcg PO DAILY #30 tab 08/07/15 05/25/19 Rx Montelukast [Singulair] 10 mg PO DAILY #0 NS 08/07/15 05/25/19 Rx Omeprazole [PriLOSEC] 40 mg PO DAILY 06/19/16 05/25/19 History Sertraline HCl 50 mg PO DAILY 06/19/16 05/25/19 History Allopurinol [Zyloprim] 300 mg PO DAILY 05/25/19 05/25/19 History Apixaban [Eliquis] 5 mg PO BID 05/25/19 05/25/19 History Aspirin EC [Ecotrin] 325 mg PO DAILY 05/25/19 05/25/19 History Atorvastatin [Lipitor] 40 mg PO HS 05/25/19 05/25/19 History Colchicine 0.6 mg PO BID 05/25/19 05/25/19 History Ergocalciferol [Vitamin D2] 50,000 unit PO Q7D 05/25/19 05/25/19 History Furosemide [Lasix] See Taper PO DIRECTED 05/25/19 05/25/19 History Krill Oil 1,000 mg PO DAILY 05/25/19 05/25/19 History Lisinopril [Prinivil] 5 mg PO DAILY 05/25/19 05/25/19 History Loperamide HCl [Imodium A-D] 2 mg PO QID PRN 05/25/19 05/25/19 History Nitroglycerin Sl Tabs [Nitrostat] 0.4 mg SUBLINGUAL Q5M PRN 05/25/19 05/25/19 History Oxybutynin Chloride [Oxybutynin 10 mg PO DAILY 05/25/19 05/25/19 History Chloride ER] Spironolactone 50 mg PO BID 05/25/19 05/25/19 History Tamsulosin [Flomax] 0.8 mg PO PC-BRKFST 05/25/19 05/25/19 History metFORMIN HCL [Glucophage] 500 mg PO BID 05/25/19 05/25/19 History Allergies Allergy/AdvReac Type Severity Reaction Status Date / Time No Known Allergies Allergy Verified 05/25/19 15:18 Physical Exam Vitals: Vital Signs Temp Pulse Pulse Resp BP BP Pulse Ox 05/26/19 11:33 97 18 05/26/19 11:02 98.6 F 97 18 99/66 94 L 05/26/19 08:00 97.6 F 93 18 131/80 98 05/26/19 04:00 97.6 F 91 106/68 96 05/26/19 00:00 98.2 F 68 18 113/67 96 05/25/19 22:17 97.8 F 86 18 128/88 97 05/25/19 20:17 97 F L 92 18 111/80 96 05/25/19 17:00 83 18 128/96 96 05/25/19 16:00 91 Intake and Output 05/25/19 05/26/19 05/26/19 22:59 06:59 14:59 Output Total 400 400 Balance -400 -400 Output: Urine 400 400 Other: Voiding Method Toilet # Voids 1 # Bowel Movements 1 Weight 108.2 kg Gen: This is a 68-year-old morbidly obese male. He is sitting up in a recliner and appears to be comfortable. Legs are in the dependent position. HEENT: Head is atraumatic, normocephalic. Pupils equal, round. Sclerae is anicteric. NECK: Supple. No JVD. No lymphadenopathy. No thyromegaly. LUNGS: Diminished. No intercostal retractions. HEART: Irregularly irregular, systolic murmur. ABDOMEN: Soft. Bowel sounds are present. No masses. No tenderness. EXTREMITIES: acute and chronic vascular cellulitis of the lower extremity from the knee down with open ulcer right pretibial, toes are dusky blue color 3+ pedal edema bilaterally, dorsalis pedis +2. NEUROLOGICAL: Patient is awake, alert and oriented x3. Cranial nerves 2 through 12 are grossly intact. Results Results: Laboratory Results WBC 6.9 k/uL (3.8-10.6) 05/25/19 15:40 RBC 5.20 m/uL (4.30-5.90) 05/25/19 15:40 Hgb 13.2 gm/dL (13.0-17.5) 05/25/19 15:40 Hct 46.6 % (39.0-53.0) 05/25/19 15:40 MCV 89.6 fL (80.0-100.0) 05/25/19 15:40 MCH 25.5 pg (25.0-35.0) 05/25/19 15:40 MCHC 28.4 g/dL (31.0-37.0) L 05/25/19 15:40 RDW 15.3 % (11.5-15.5) 05/25/19 15:40 Plt Count 191 k/uL (150-450) 05/25/19 15:40 Neutrophils % 75 % 05/25/19 15:40 Lymphocytes % 12 % 05/25/19 15:40 Monocytes % 9 % 05/25/19 15:40 Eosinophils % 1 % 05/25/19 15:40 Basophils % 2 % 05/25/19 15:40 Neutrophils # 5.1 k/uL (1.3-7.7) 05/25/19 15:40 Lymphocytes # 0.8 k/uL (1.0-4.8) L 05/25/19 15:40 Monocytes # 0.6 k/uL (0-1.0) 05/25/19 15:40 Eosinophils # 0.1 k/uL (0-0.7) 05/25/19 15:40 Basophils # 0.1 k/uL (0-0.2) 05/25/19 15:40 Hypochromasia Marked 05/25/19 15:40 PT 11.0 sec (9.0-12.0) 05/25/19 15:40 INR 1.0 (<1.2) 05/25/19 15:40 APTT 24.7 sec (22.0-30.0) 05/25/19 15:40 D-Dimer 0.79 mg/L FEU (<0.60) H 05/26/19 08:27 Sodium 139 mmol/L (137-145) 05/26/19 08:27 Potassium 5.0 mmol/L (3.5-5.1) 05/26/19 08:27 Chloride 100 mmol/L (98-107) 05/26/19 08:27 Carbon Dioxide 30 mmol/L (22-30) 05/26/19 08:27 Anion Gap 9 mmol/L 05/26/19 08:27 BUN 26 mg/dL (9-20) H 05/26/19 08:27 Creatinine 1.19 mg/dL (0.66-1.25) 05/26/19 08:27 Est GFR (CKD-EPI)AfAm 71 (>60 ml/min/1.73 sqM) 05/26/19 08:27 Est GFR (CKD-EPI)NonAf 62 (>60 ml/min/1.73 sqM) 05/26/19 08:27 Glucose 97 mg/dL (74-99) 05/26/19 08:27 POC Glucose (mg/dL) 97 mg/dL (75-99) 05/26/19 12:04 POC Glu [employer] Allyson Tovar 05/26/19 12:04 Lactic Ac Sepsis Rflx Y 05/25/19 16:13 Plasma Lactic Acid Jaycob 1.4 mmol/L (0.7-2.0) 05/25/19 19:25 Calcium 9.8 mg/dL (8.4-10.2) 05/26/19 08:27 Total Bilirubin 1.5 mg/dL (0.2-1.3) H 05/26/19 08:27 AST 28 U/L (17-59) 05/26/19 08:27 ALT 28 U/L (21-72) 05/26/19 08:27 Alkaline Phosphatase 71 U/L (38-126) 05/26/19 08:27 Troponin I 0.071 ng/mL (0.000-0.034) H* 05/26/19 13:42 NT-Pro-B Natriuret Pep 6210 pg/mL 05/26/19 08:27 Total Protein 6.7 g/dL (6.3-8.2) 05/26/19 08:27 Albumin 4.1 g/dL (3.5-5.0) 05/26/19 08:27 Urine Color Light Yellow 05/25/19 15:40 Urine Appearance Clear (Clear) 05/25/19 15:40 Urine pH 5.0 (5.0-8.0) 05/25/19 15:40 Ur Specific [place] 1.006 (1.001-1.035) 05/25/19 15:40 Urine Protein Negative (Negative) 05/25/19 15:40 Urine Glucose (UA) Negative (Negative) 05/25/19 15:40 Urine Ketones Negative (Negative) 05/25/19 15:40 Urine Blood Negative (Negative) 05/25/19 15:40 Urine Nitrite Negative (Negative) 05/25/19 15:40 Urine Bilirubin Negative (Negative) 05/25/19 15:40 Urine Urobilinogen <2.0 mg/dL (<2.0) 05/25/19 15:40 Ur Leukocyte Esterase Negative (Negative) 05/25/19 15:40 CBC & Chem 7: 05/25/19 15:40 05/26/19 08:27 Labs: Abnormal Lab Results - Last 24 Hours (Table) 05/25/19 05/25/19 05/25/19 Range/Units 15:40 15:40 15:40 MCHC 28.4 L (31.0-37.0) g/dL Lymphocytes # 0.8 L (1.0-4.8) k/uL D-Dimer (<0.60) mg/L FEU BUN 27 H (9-20) mg/dL Plasma Lactic Acid Jaycob (0.7-2.0) mmol/L Total Bilirubin 1.4 H (0.2-1.3) mg/dL Troponin I 0.064 H* (0.000-0.034) ng/mL 05/25/19 05/26/19 05/26/19 Range/Units 15:40 08:27 08:27 MCHC (31.0-37.0) g/dL Lymphocytes # (1.0-4.8) k/uL D-Dimer 0.79 H (<0.60) mg/L FEU BUN 26 H (9-20) mg/dL Plasma Lactic Acid Jaycob 2.3 H* (0.7-2.0) mmol/L Total Bilirubin 1.5 H (0.2-1.3) mg/dL Troponin I (0.000-0.034) ng/mL 05/26/19 Range/Units 13:42 MCHC (31.0-37.0) g/dL Lymphocytes # (1.0-4.8) k/uL D-Dimer (<0.60) mg/L FEU BUN (9-20) mg/dL Plasma Lactic Acid Jaycob (0.7-2.0) mmol/L Total Bilirubin (0.2-1.3) mg/dL Troponin I 0.071 H* (0.000-0.034) ng/mL Assessment and Plan Plan: This is a 68-year-old male presented with acute metabolic encephalopathy secondary to lower extremity cellulitis and dementia. Wound care team has addressed local wound care to the lower extremities. Patient is currently on IV Lasix and IV Rocephin. Wound culture has been obtained. Continue supportive care. Further recommendations patient progresses. The above dictated assessment and findings were discussed with Dr. Soares. The impression and plan of care have been directed as dictated. Kusum Alvarez nurse practitioner acting as scribe for Dr. Soares.
--- NOTE | 2019-05-26 15:15 | P.GSCN ---
History of Present Illness Consult date: 05/26/19 History of present illness: The patient is a 68-year-old obese male with a past history of hypertension, coronary artery disease, ischemic cardiomyopathy, systolic heart failure, history of NSTEMI, , chronic atrial fibrillation, COPD, bilateral lower extremity edema and history of encephalopathy with infections from cellulitis. He states that he has come to the hospital for redness and edema of his bilateral lower extremities. There more red than they normally are. His son states he is supposed to wear his compression stockings but does not. He currently denies fevers, chills, nausea or vomiting. Review of Systems 14 point review of systems performed. Pertinent positives and negatives per the HPI Past Medical History Past Medical History: Atrial Fibrillation, Heart Failure, COPD, Dementia, GERD/Reflux, Hyperlipidemia, Hypertension, Myocardial Infarction (ME), Prostate Disorder, Renal Disease, Skin Disorder Additional Past Medical History / Comment(s): Mild dementia, cardiomyopathy, last known EF was 20-25%, afib with RVR in past, chronic lower leg edema, c hronic vascular cellulitis lower extremities, lumbar DDD, back pain, previous history of GI bleed, doudenitis, diverticulum, BPH, athrities bilateral knees and back, COPD, chronic lower extremity once, history of fall Last Myocardial Infarction Date:: 07/2015 History of Any Multi-Drug Resistant Organisms: None Reported Past Surgical History: Heart Catheterization, Orthopedic Surgery Additional Past Surgical History / Comment(s): 2002 cardiac cath-no intervention, R knee arthroscopy, L knee I & D for prepatellar bursa infection - arthrotomy, PICC line insertion with eventual removal, lumbar and bilateral knee steroid injections, cataract surgery bilaterally,EGD/colonoscopy. Past Anesthesia/Blood Transfusion Reactions: No Reported Reaction Past Psychological History: Anxiety, Depression Additional Psychological History / Comment(s): Pt lives alone. He ambulates with a walker. His brother, Jason comes to his home 3 days a week and does pt's shopping and cleans his home. His sister, Katy transports him to [employer] since he no longer drives. He is a of 2 yrs. VNA nurse comes to his home once a month to manage medications and check him over. Smoking Status: Never smoker Past Drug Use History: None Reported - Past Family History Father History Unknown: Yes Family Medical History: Coronary Artery Disease (CAD), Myocardial Infarction (ME) Additional Family Medical History / Comment(s): Father had CABG. He passed from a ME at the age of 62 yrs. Mother History Unknown: Yes Family Medical History: Cancer, Congestive Heart Failure (CHF), COPD, Diabetes Mellitus Additional Family Medical History / Comment(s): Mother had lung cancer. She was a smoker. She at the age of 62 yrs. Medications and Allergies Home Medications Medication Instructions Recorded Confirmed Type Metoprolol Tartrate [Lopressor] 100 mg PO BID 08/03/15 05/25/19 History Digoxin [Lanoxin] 125 mcg PO DAILY #30 tab 08/07/15 05/25/19 Rx Montelukast [Singulair] 10 mg PO DAILY #0 NS 08/07/15 05/25/19 Rx Omeprazole [PriLOSEC] 40 mg PO DAILY 06/19/16 05/25/19 History Sertraline HCl 50 mg PO DAILY 06/19/16 05/25/19 History Allopurinol [Zyloprim] 300 mg PO DAILY 05/25/19 05/25/19 History Apixaban [Eliquis] 5 mg PO BID 05/25/19 05/25/19 History Aspirin EC [Ecotrin] 325 mg PO DAILY 05/25/19 05/25/19 History Atorvastatin [Lipitor] 40 mg PO HS 05/25/19 05/25/19 History Colchicine 0.6 mg PO BID 05/25/19 05/25/19 History Ergocalciferol [Vitamin D2] 50,000 unit PO Q7D 05/25/19 05/25/19 History Furosemide [Lasix] See Taper PO DIRECTED 05/25/19 05/25/19 History Krill Oil 1,000 mg PO DAILY 05/25/19 05/25/19 History Lisinopril [Prinivil] 5 mg PO DAILY 05/25/19 05/25/19 History Loperamide HCl [Imodium A-D] 2 mg PO QID PRN 05/25/19 05/25/19 History Nitroglycerin Sl Tabs [Nitrostat] 0.4 mg SUBLINGUAL Q5M PRN 05/25/19 05/25/19 History Oxybutynin Chloride [Oxybutynin 10 mg PO DAILY 05/25/19 05/25/19 History Chloride ER] Spironolactone 50 mg PO BID 05/25/19 05/25/19 History Tamsulosin [Flomax] 0.8 mg PO [id number] 05/25/19 05/25/19 History metFORMIN HCL [Glucophage] 500 mg PO BID 05/25/19 05/25/19 History Allergies Allergy/AdvReac Type Severity Reaction Status Date / Time No Known Allergies Allergy Verified 05/25/19 15:18 Surgical - Exam Vital Signs Temp Pulse Resp BP Pulse Ox 97.4 F L 112 H 20 123/95 97 05/25/19 13:36 05/25/19 13:36 05/25/19 13:36 05/25/19 13:36 05/25/19 13:36 No acute distress, morbidly obese, normal cephalic atraumatic. Heart is irregular at this time. Lungs are clear bilaterally. Abdomen is obese, nontender. Bilateral lower extremities are warm. There is erythema and edema noted. There are weeping sores of serous fluid. Normal mood and affect Results Ultrasound the bilateral lower extremity was performed. No obvious initial evidence of DVT on my review - Labs 05/25/19 15:40 05/26/19 08:27 Abnormal Lab Results - Last 24 Hours (Table) 05/25/19 05/25/19 05/25/19 Range/Units 15:40 15:40 15:40 MCHC 28.4 L (31.0-37.0) g/dL Lymphocytes # 0.8 L (1.0-4.8) k/uL D-Dimer (<0.60) mg/L FEU BUN 27 H (9-20) mg/dL Plasma Lactic Acid Jay[place]ob (0.7-2.0) mmol/L Total Bilirubin 1.4 H (0.2-1.3) mg/dL Troponin I 0.064 H* (0.000-0.034) ng/mL 05/25/19 05/26/19 05/26/19 Range/Units 15:40 08:27 08:27 MCHC (31.0-37.0) g/dL Lymphocytes # (1.0-4.8) k/uL D-Dimer 0.79 H (<0.60) mg/L FEU BUN 26 H (9-20) mg/dL Plasma Lactic Acid [place]ob 2.3 H* (0.7-2.0) mmol/L Total Bilirubin 1.5 H (0.2-1.3) mg/dL Troponin I (0.000-0.034) ng/mL 05/26/19 Range/Units 13:42 MCHC (31.0-37.0) g/dL Lymphocytes # (1.0-4.8) k/uL D-Dimer (<0.60) mg/L FEU BUN (9-20) mg/dL Plasma Lactic Acid [place]ob (0.7-2.0) mmol/L Total Bilirubin (0.2-1.3) mg/dL Troponin I 0.071 H* (0.000-0.034) ng/mL Diabetes panel 05/25/19 05/26/19 Range/Units 15:40 08:27 Sodium 139 139 (137-145) mmol/L Potassium 4.8 5.0 (3.5-5.1) mmol/L Chloride 103 100 (98-107) mmol/L Carbon Dioxide 25 30 (22-30) mmol/L BUN 27 H 26 H (9-20) mg/dL Creatinine 1.03 1.19 (0.66-1.25) mg/dL Glucose 91 97 (74-99) mg/dL Calcium 9.0 9.8 (8.4-10.2) mg/dL AST 40 28 (17-59) U/L ALT 23 28 (21-72) U/L Alkaline Phosphatase 57 71 (38-126) U/L Total Protein 6.5 6.7 (6.3-8.2) g/dL Albumin 3.9 4.1 (3.5-5.0) g/dL Calcium panel 05/25/19 05/26/19 Range/Units 15:40 08:27 Calcium 9.0 9.8 (8.4-10.2) mg/dL Albumin 3.9 4.1 (3.5-5.0) g/dL Pituitary panel 05/25/19 05/26/19 Range/Units 15:40 08:27 Sodium 139 139 (137-145) mmol/L Potassium 4.8 5.0 (3.5-5.1) mmol/L Chloride 103 100 (98-107) mmol/L Carbon Dioxide 25 30 (22-30) mmol/L BUN 27 H 26 H (9-20) mg/dL Creatinine 1.03 1.19 (0.66-1.25) mg/dL Glucose 91 97 (74-99) mg/dL Calcium 9.0 9.8 (8.4-10.2) mg/dL Adrenal panel 05/25/19 05/26/19 Range/Units 15:40 08:27 Sodium 139 139 (137-145) mmol/L Potassium 4.8 5.0 (3.5-5.1) mmol/L Chloride 103 100 (98-107) mmol/L Carbon Dioxide 25 30 (22-30) mmol/L BUN 27 H 26 H (9-20) mg/dL Creatinine 1.03 1.19 (0.66-1.25) mg/dL Glucose 91 97 (74-99) mg/dL Calcium 9.0 9.8 (8.4-10.2) mg/dL Total Bilirubin 1.4 H 1.5 H (0.2-1.3) mg/dL AST 40 28 (17-59) U/L ALT 23 28 (21-72) U/L Alkaline Phosphatase 57 71 (38-126) U/L Total Protein 6.5 6.7 (6.3-8.2) g/dL Albumin 3.9 4.1 (3.5-5.0) g/dL Assessment and Plan Assessment: CEAP 6 bilateral lower extremities Elevated troponins COPD History of ME Diabetes Plan: At this point, ultrasound was performed revealing no evidence of DVT. Local wound care of his lower extremities with compression therapies. Antibiotic per infectious disease.
--- NOTE | 2019-05-26 15:31 | US ---
EXAMINATION TYPE: US venous doppler duplex LE DATE OF EXAM: 05/26/2019 1:46 PM COMPARISON: US 2014 CLINICAL HISTORY: DVT. Bilateral lower leg and feet swelling and redness, exam done portable. SIDE PERFORMED: Bilateral TECHNIQUE: The lower extremity deep venous system is examined utilizing real time linear array sonog aury with graded compression, doppler sonography and color-flow sonography. VESSELS IMAGED: External Iliac Vein (EIV) Common Femoral Vein Deep Femoral Vein Greater Saphenous Vein * Femoral Vein Popliteal Vein Small Saphenous Vein * Proximal Calf Veins (* superficial vessels) Right Leg: Appears negative for DVT Left Leg: Appears negative for DVT IMPRESSION: 1. Bilateral lower extremity ultrasound negative for deep venous thrombosis.
[2019-05-26] MEDS: HYDROPHILIC CREAM 180 GM TUBE TOPICAL SCH (16:36)
[2019-05-26] MEDS: INSULIN ASPART (NovoLOG) 100 UNIT/ML VIAL SQ SCH (16:50)
[2019-05-26 16:57] LABS: Glucose,Whole Blood 91 mg/dL (75-99)
[2019-05-26 17:42] LABS: Hemoglobin A1C 5.6 % (4.0-6.0)
--- NOTE | 2019-05-26 19:45 | ECHOF ---
Referral Reason:LVF MEASUREMENTS -------- HEIGHT: 162.6 cm WEIGHT: 108.0 kg BP: 99/66 RVIDd: 5.1 cm (< 3.3) IVSd: 1.1 cm (0.6 - 1.1) LVIDd: 6.9 cm (3.9 - 5.3) LVPWd: 1.2 cm (0.6 - 1.1) IVSs: 1.3 cm LVIDs: 5.5 cm LVPWs: 1.3 cm LA Diam: 7.3 cm (2.7 - 3.8) LAESV Index (A-L): 117.64 ml/m Ao Diam: 4.6 cm (2.0 - 3.7) MV EXCURSION: 22.430 mm (> 18.000) MV EF SLOPE: 149 mm/s (70 - 150) EPSS: 1.0 cm MV E Cesar: 0.92 m/s MV DecT: 125 ms MV A Cesar: 0.21 m/s MV E/A Ratio: 4.42 AR PHT: 612 ms RAP: 5.00 mmHg RVSP: 35.45 mmHg FINDINGS -------- Sinus rhythm. This was a techncally difficult study with suboptimal views, , Lumason utilized for enhancement of im ages. The cavity size is decreased. There is severe global hypokinesis of LV . Overall left ventricular systolic function is severely impaired with, an EF < 20%. The right ventricle is severely enlarged. The left atrium is markedly dilated. LA is severely dilated >40 ml/m2 The right atrium is markedly enlarged. 5.0mg OF Lumason UTLIZED: 2 OR MORE WALL SEGMENTS NOT VISUALIZED. There is mild aortic valve sclerosis. There is mild aortic regurgitation. Mild mitral annular calcification present. Mild mitral regurgitation is present. Mild tricuspid regurgitation present. Right ventricular systolic pressure is normal at < 35 mmHg. There is no evidence of pulmonary hypertension. There is no pulmonic regurgitation present. Aortic Root is dilated and measures 4.0cm. There is a small, generalized pericardial effusion present. CONCLUSIONS -------- 1. Sinus rhythm. 2. This was a techncally difficult study with suboptimal views, , Lumason utilized for enhancement of images. 3. The cavity size is decreased. 4. There is severe global hypokinesis of LV . 5. The right ventricle is severely enlarged. 6. The left atrium is markedly dilated. 7. LA is severely dilated >40 ml/m2 8. The right atrium is markedly enlarged. 9. 5.0mg OF Lumason UTLIZED: 2 OR MORE WALL SEGMENTS NOT VISUALIZED. 10. There is mild aortic valve sclerosis. 11. There is mild aortic regurgitation. 12. Mild mitral annular calcification present. 13. Mild mitral regurgitation is present. 14. Mild tricuspid regurgitation present. 15. Right ventricular systolic pressure is normal at < 35 mmHg. 16. There is no evidence of pulmonary hypertension. 17. There is no pulmonic regurgitation present. 18. Aortic Root is dilated and measures 4.0cm. 19. There is a small, generalized pericardial effusion present. [employer]: Huma Pepe RDCS
[2019-05-26 20:34] LABS: Glucose,Whole Blood 109 mg/dL (75-99)
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
[2019-05-27] MEDS ORDERED: LORazepam 2 MG/ML INJ IV STA (00:25)
[2019-05-27] MEDS ORDERED: HALOPERIDOL LACTATE 5 MG/ML 1 ML VIAL IM STA (00:28)
[2019-05-27 04:23] LABS: Cholesterol 82 mg/dL (<200); HDL Cholesterol 26 mg/dL (40-60); LDL Cholesterol,Calculated 45 mg/dL (0-99); Triglycerides 54 mg/dL (<150)
[2019-05-27 06:08] LABS: Glucose,Whole Blood 94 mg/dL (75-99)
[2019-05-27] MEDS: APIXABAN 5 MG TAB PO SCH ×3 (06:49→20:20)
[2019-05-27] MEDS: COLCHICINE 0.6 MG EACH PO SCH ×3 (06:49→20:20)
[2019-05-27] MEDS: ATORVASTATIN 40 MG TAB PO SCH ×2 (06:49→20:20)
[2019-05-27] MEDS: metFORMIN 500 MG TAB PO SCH ×3 (06:50→20:20)
[2019-05-27] MEDS: FUROSEMIDE 10 MG/ML 4 ML VIAL IV SCH ×3 (06:50→20:20)
[2019-05-27] MEDS: METOPROLOL TARTRATE 50 MG TAB PO SCH ×3 (06:50→20:19)
[2019-05-27] MEDS: INSULIN ASPART (NovoLOG) 100 UNIT/ML VIAL SQ SCH ×5 (06:50→20:57)
[2019-05-27] MEDS: SPIRONOLACTONE 25 MG TAB PO SCH ×3 (06:51→20:20)
[2019-05-27] MEDS: ASPIRIN 325 MG TAB PO SCH (08:28)
[2019-05-27] MEDS: TAMSULOSIN 0.4 MG CAP.ER.24H PO SCH (08:28)
[2019-05-27] MEDS: DIGOXIN 125 MCG TAB PO SCH (08:28)
[2019-05-27] MEDS: ALLOPURINOL 300 MG TAB PO SCH (08:28)
[2019-05-27] MEDS: MONTELUKAST 10 MG TAB PO SCH (08:28)
[2019-05-27] MEDS: SERTRALINE 50 MG TAB PO SCH (08:28)
[2019-05-27] MEDS: OXYBUTYNIN 10 MG TAB.ER.24 PO SCH (08:29)
[2019-05-27] MEDS: LISINOPRIL 5 MG TAB PO SCH (08:29)
[2019-05-27] MEDS: HYDROPHILIC CREAM 180 GM TUBE TOPICAL SCH (08:44)
[2019-05-27 11:52] LABS: Glucose,Whole Blood 101 mg/dL (75-99)
--- NOTE | 2019-05-27 15:41 | P.CRDCN ---
History of Present Illness Consult date: 05/27/19 Chief complaint: Dental status changes, lower extremity redness and edema History of present illness: This is a 68-year-old morbidly obese male patient of Dr. Pal with past medical history of hypertension with hypertensive cardiovascular disease, ischemic cardiopathy, chronic systolic heart failure, non-ST elevated myocardial infarction, COPD, chronic A. fib and chronic edema and mild dementia. Patient presented to [facility] emergency center with altered mental status and confusion as well as concern that he was not taking this medications as relayed by the family members but the patient at the time of this evaluation adamantly denies any confusion. He states that he came in due to lower extremity redness and edema with wounds. He states he has had this for many years but is currently in exacerbation. Legs are more red than his normal. Initial vital signs: Afebrile, heart rate 112, blood pressure 123/95, pulse ox 97%. CBC was unremarkable. BUN 27 creatinine 1.03, blood sugar 91. CAT scan of the brain showed no acute abnormalities. Total bilirubin 1.4 and other liver function tests within normal limits, albumin 3.9. Initial lactic acid 2.3 and repeat 1.4. ProBNP 6210. Troponin 0.064. Urinalysis negative for infection. Patient was started on ceftriaxone and admitted to the cardiac stepdown unit. Cardiology consultation was requested because of abnormal troponins. Patient's blood pressure 136/60 with a heart rate in the 70s, 94% on room air. At the time of our examination, the patient is sitting up in the chair at bedside, he denies any chest pain at present or prior to admission here. Past Medical History Past Medical History: Atrial Fibrillation, Heart Failure, COPD, Dementia, GERD/Reflux, Hyperlipidemia, Hypertension, Myocardial Infarction (IN), Prostate Disorder, Renal Disease, Skin Disorder Additional Past Medical History / Comment(s): Mild dementia, cardiomyopathy, last known EF was 20-25%, afib with RVR in past, chronic lower leg edema, chronic vascular cellulitis lower extremities, lumbar DDD, back pain, previous history of GI bleed, doudenitis, diverticulum, BPH, athrities bilateral knees and back, COPD, chronic lower extremity once, history of fall Last Myocardial Infarction Date:: 07/2015 History of Any Multi-Drug Resistant Organisms: None Reported Past Surgical History: Heart Catheterization, Orthopedic Surgery Additional Past Surgical History / Comment(s): 2002 cardiac cath-no intervention, R knee arthroscopy, L knee I & D for prepatellar bursa infection - arthrotomy, PICC line insertion with eventual removal, lumbar and bilateral knee steroid injections, cataract surgery bilaterally,EGD/colonoscopy. Past Anesthesia/Blood Transfusion Reactions: No Reported Reaction Past Psychological History: Anxiety, Depression Additional Psychological History / Comment(s): Pt lives alone. He ambulates with a walker. His brother, Jason comes to his home 3 days a week and does pt's shopping and cleans his home. His sister, Katy transports him to [facility] since he no longer drives. He is a of 2 yrs. VNA nurse comes to his home once a month to manage medications and check him over. Smoking Status: Never smoker Past Drug Use History: None Reported - Past Family History Father History Unknown: Yes Family Medical History: Coronary Artery Disease (CAD), Myocardial Infarction (IN) Additional Family Medical History / Comment(s): Father had CABG. He passed from a IN at the age of 62 yrs. Mother History Unknown: Yes Family Medical History: Cancer, Congestive Heart Failure (CHF), COPD, Diabetes Mellitus Additional Family Medical History / Comment(s): Mother had lung cancer. She was a smoker. She at the age of 62 yrs. Medications and Allergies Home Medications Medication Instructions Recorded Confirmed Type Metoprolol Tartrate [Lopressor] 100 mg PO BID 08/03/15 05/25/19 History Digoxin [Lanoxin] 125 mcg PO DAILY #30 tab 08/07/15 05/25/19 Rx Montelukast [Singulair] 10 mg PO DAILY #0 NS 08/07/15 05/25/19 Rx Omeprazole [PriLOSEC] 40 mg PO DAILY 06/19/16 05/25/19 History Sertraline HCl 50 mg PO DAILY 06/19/16 05/25/19 History Allopurinol [Zyloprim] 300 mg PO DAILY 05/25/19 05/25/19 History Apixaban [Eliquis] 5 mg PO BID 05/25/19 05/25/19 History Aspirin EC [Ecotrin] 325 mg PO DAILY 05/25/19 05/25/19 History Atorvastatin [Lipitor] 40 mg PO HS 05/25/19 05/25/19 History Colchicine 0.6 mg PO BID 05/25/19 05/25/19 History Ergocalciferol [Vitamin D2] 50,000 unit PO Q7D 05/25/19 05/25/19 History Furosemide [Lasix] See Taper PO DIRECTED 05/25/19 05/25/19 History Krill Oil 1,000 mg PO DAILY 05/25/19 05/25/19 History Lisinopril [Prinivil] 5 mg PO DAILY 05/25/19 05/25/19 History Loperamide HCl [Imodium A-D] 2 mg PO QID PRN 05/25/19 05/25/19 History Nitroglycerin Sl Tabs [Nitrostat] 0.4 mg SUBLINGUAL Q5M PRN 05/25/19 05/25/19 History Oxybutynin Chloride [Oxybutynin 10 mg PO DAILY 05/25/19 05/25/19 History Chloride ER] Spironolactone 50 mg PO BID 05/25/19 05/25/19 History Tamsulosin [Flomax] 0.8 mg PO PC-BRKFST 05/25/19 05/25/19 History metFORMIN HCL [Glucophage] 500 mg PO BID 05/25/19 05/25/19 History Allergies Allergy/AdvReac Type Severity Reaction Status Date / Time No Known Allergies Allergy Verified 05/25/19 15:18 Physical Exam Vitals: Vital Signs Temp Pulse Resp BP Pulse Ox 05/27/19 12:27 98.4 F 67 16 94/61 97 05/27/19 08:49 97.8 F 79 16 136/61 94 L 05/27/19 04:00 98.0 F 104 H 18 130/75 97 05/26/19 20:00 97.1 F L 74 18 104/58 96 05/26/19 16:00 98.5 F 83 18 106/60 97 Intake and Output 05/27/19 05/27/19 05/27/19 06:59 14:59 22:59 Intake Total 600 Output Total 150 800 Balance -150 -200 Intake: Oral 600 Output: Urine 150 800 Other: Voiding Method Toilet Urinal # Voids 1 Weight 108.1 kg PHYSICAL EXAMINATION: GENERAL: 68-year-old gentleman in no acute distress at the time of my examination HEENT: Head is atraumatic, normocephalic. Pupils equal, round. Sclera anicteric. Conjunctiva are clear. Mucous membranes of the mouth are moist. Neck is supple. There is no elevated jugular venous pressure. No carotid bruit is heard. HEART EXAMINATION: Heart S1 and S2 irregularly irregular a systolic murmur is heard CHEST EXAMINATION: Lungs reveal diminished air entry bilaterally to the bases ABDOMEN: Soft, nontender. Bowel sounds are heard. No organomegaly noted. EXTREMITIES:[ 1+ peripheral pulses, bilateral Praveen wraps in place, toes are dusky in color significant bilateral edema NEUROLOGIC patient is awake, alert and oriented 3 . . Results 05/25/19 15:40 05/26/19 08:27 Cardiac Enzymes 05/26/19 Range/Units 20:10 Troponin I 0.065 H* (0.000-0.034) ng/mL Lipids 05/26/19 Range/Units 08:27 Triglycerides 54 (<150) mg/dL Cholesterol 82 (<200) mg/dL HDL Cholesterol 26 L (40-60) mg/dL Current Medications Generic Name Dose Route Start Last Admin Trade Name Freq PRN Reason Stop Dose Admin Acetaminophen 650 mg 05/25/19 18:48 Tylenol Tab PO Q6HR PRN Mild Pain or Fever > 100.5 Allopurinol 300 mg 05/26/19 09:00 05/27/19 08:28 Zyloprim PO 300 mg DAILY FEDERICO Administration Apixaban 5 mg 05/25/19 22:45 05/27/19 08:28 Eliquis PO 5 mg BID FEDERICO Administration Aspirin 325 mg 05/26/19 09:00 05/27/19 08:28 Aspirin PO 325 mg DAILY FEDERICO Administration Atorvastatin Calcium 40 mg 05/25/19 22:45 05/27/19 06:49 Lipitor PO Not Given HS FEDERICO Colchicine 0.6 mg 05/25/19 22:45 05/27/19 08:28 Colcrys PO 0.6 mg BID FEDERICO Administration Digoxin 125 mcg 05/26/19 09:00 05/27/19 08:28 Lanoxin PO 125 mcg DAILY FEDERICO Administration Furosemide 40 mg 05/26/19 09:00 05/27/19 08:29 Lasix IV 40 mg Q12HR FEDERICO Administration Ceftriaxone Sodium 1 gm/ 50 mls @ 100 mls/hr 05/26/19 09:00 05/27/19 08:29 Sodium Chloride IVPB 100 mls/hr Q24HR FEDERICO Administration Insulin Aspart 0 unit 05/26/19 17:30 05/27/19 12:32 Novolog SQ Not Given A[facility]S [facility] Protocol Lisinopril 5 mg 05/26/19 09:00 05/27/19 08:29 Zestril PO 5 mg DAILY FEDERICO Administration Metformin HCl 500 mg 05/25/19 22:45 05/27/19 08:28 Glucophage PO 500 mg BID FEDERICO Administration Metoprolol Tartrate 100 mg 05/25/19 22:45 05/27/19 08:28 Lopressor PO 100 mg BID FEDERICO Administration Montelukast Sodium 10 mg 05/26/19 09:00 05/27/19 08:28 Singulair PO 10 mg DAILY FEDERICO Administration Multi-Ingred Cream/Lotion/Oil/Oint 1 applic 05/26/19 14:00 05/27/19 08:44 Triad Cream TOPICAL 1 applic DAILY FEDERICO Administration Naloxone HCl 0.2 mg 05/25/19 18:48 Narcan IV Q2M PRN Opioid Reversal Ondansetron HCl 4 mg 05/25/19 18:48 Zofran IVP Q8HR PRN Nausea And Vomiting Oxybutynin Chloride 10 mg 05/26/19 09:00 05/27/19 08:29 Ditropan Xl PO 10 mg DAILY FEDERICO Administration Pantoprazole Sodium 40 mg 05/26/19 09:00 05/26/19 08:51 Protonix PO 40 mg DAILY FEDERICO Administration Sertraline HCl 50 mg 05/26/19 09:00 05/27/19 08:28 Zoloft PO 50 mg DAILY FEDERICO Administration Silver Sulfadiazine 1 applic 05/26/19 22:00 05/27/19 06:51 Silvadene Cream TOPICAL Not Given DAILY FEDERICO Spironolactone 50 mg 05/25/19 22:45 05/27/19 08:29 Aldactone PO 50 mg BID FEDERICO Administration Tamsulosin HCl 0.8 mg 05/26/19 08:30 05/27/19 08:28 Flomax PO 0.8 mg PC-BRKFST FEDERICO Administration Tramadol HCl 50 mg 05/25/19 18:48 Ultram PO Q6H PRN Moderate Pain Intake and Output 05/27/19 05/27/19 05/27/19 06:59 14:59 22:59 Intake Total 600 Output Total 150 800 Balance -150 -200 Intake: Oral 600 Output: Urine 150 800 Other: Voiding Method Toilet Urinal # Voids 1 Weight 108.1 kg 05/25/19 15:40 05/26/19 08:27 EKG Interpretations (text) EKG shows atrial fibrillation with controlled ventricular response, occasional PVC. Assessment and Plan Plan: Assessment and plan 1. Acute metabolic encephalopathy secondary to lower extremity cellulitis and dementia. Patient appears to be at baseline at this time. 2. Acute on chronic lower extremity cellulitis with venous stasis ulcers. 3. Elevated troponins with no significant rise and fall pattern, clinical picture does not suggest acute coronary syndrome , echocardiogram will be obtain ed. Patient denies having any chest pain. 4. History of coronary artery disease and previous myocardial infarction. 5. Chronic systolic heart failure and ischemic cardiomyopathy. 6. Chronic atrial fibrillation. 7. Hyperlipidemia. 8. Hypertension 9. COPD 10. Morbid obesity. 11. Diabetes mellitus type 2. 12. Gout, chronic. 13. Benign prostatic hypertrophy. 14. Recurrent depression. 15. Gastroesophageal reflux disease Plan We will obtain an echocardiogram with Doppler study, decrease aspirin 81 mg daily. Continue the rest of the patient's medications. DNP note has been reviewed, I agree with a documented findings and plan of care. Patient was seen and examined.
--- NOTE | 2019-05-27 15:45 | P.PN ---
Subjective Progress Note Date: 05/27/19 This is a 68-year-old morbidly obese male patient of Dr. Pal with past medical history of hypertension with hypertensive cardiovascular disease, ischemic cardiopathy, chronic systolic heart failure, non-ST elevated myocardial infarction, COPD, chronic A. fib and chronic edema and mild dementia. Patient presented to [facility] emergency center with altered mental status and confusion as well as concern that he was not taking this medications as relayed by the family members but the patient at the time of this evaluation adamantly denies any confusion. He states that he came in due to lower extremity redness and edema with wounds. He states he has had this for many years but is currently in exacerbation. Legs are more red than his normal. It is sometimes itchy. He states his edema to the lower extremities is about his baseline. Initial vital signs: Afebrile, heart rate 112, blood pressure 123/95, pulse ox 97%. CBC was unremarkable. BUN 27 creatinine 1.03, blood sugar 91. CAT scan of the brain showed no acute abnormalities. Total bilirubin 1.4 and other liver function tests within normal limits, albumin 3.9. Initial lactic acid 2.3 and repeat 1.4. ProBNP 6210. Troponin 0.064. Urinalysis negative for infection. Patient was started on ceftriaxone and admitted to the cardiac stepdown unit. Consults added for cardiology for elevated troponin and repeat troponins of been ordered as well as echocardiogram. Consult with Dr. Soares added for lower extremity cellulitis and wound care consult as well. Dr. Moran has been consulted regarding venous stasis. 05/27: History of an, patient had intermittent episodes of confusion and last night he was very confused and found wandering in his room, refusing to follow commands. Patient was very uncooperative at the time with the nursing staff. We have subsequently added and consults with psychiatry and neurology for mental status changes. Son is currently at the bedside. Would also recommend the patient have a sleep study as an outpatient. The patient has been afebrile, heart rate 67, blood pressure 94/61. Pulse ox 97% on room air. Blood sugars running between 89 and 101. Wound culture and blood culture in progress. Patient has been seen by Dr. Soares and wound care team for lower extremity cellulitis and local wound care as well as Rocephin continued. Patient has also been seen by vascular surgery and rated at a CEAP score of 6. Ultrasound of the lower extremities negative for DVT. Social work has met with the patient's son and he will be pursuing guardianship. Discharge plan is not been determined. PT and OT is recommending subacute rehab. Objective - Vital Signs Vital signs: Vital Signs Temp 97.8 F 05/27/19 08:49 Pulse 79 05/27/19 08:49 Resp 18 05/27/19 08:49 BP 136/61 05/27/19 08:49 Pulse Ox 94 L 05/27/19 08:49 Intake & Output 05/26/19 05/27/19 05/27/19 18:59 06:59 18:59 Intake Total 360 240 Output Total 550 800 Balance 360 -550 -560 Weight 108.1 kg Intake: Oral 360 240 Output: Urine 550 800 Other: Voiding Method Toilet Urinal # Voids 1 1 # Bowel Movements 1 1 - Exam Review of Systems Constitutional: Reports weakness, Denies anorexia, Denies chills, Denies fatigue, Denies fever, Denies lethargy, Denies poor appetite Eyes: denies blurred vision, denies pain Ears, nose, mouth and throat: Denies dysphagia, Denies nasal congestion, Denies nasal discharge, Denies vertigo Cardiovascular: Reports edema, Reports leg edema, Denies shortness of breath, Denies syncope Respiratory: Denies cough, Denies cough with sputum, Denies dyspnea, Denies excessive sputum, Denies hemoptysis, Denies home oxygen, Denies respiratory infections, Denies wheezing Gastrointestinal: Denies abdominal pain, Denies diarrhea, Denies loss of appetite, Denies nausea, Denies vomiting Genitourinary: Denies dysuria, Denies urinary hesitancy, Denies urinary retention Musculoskeletal: Reports muscle weakness, Denies frequent falls, Denies myalgias Integumentary: Reports color changes, Reports darkening of skin, Reports wounds, Denies pruritus, Denies rash Neurological: Reports change in mentation, Denies change in speech, Denies numbness, Denies weakness Psychiatric: Denies anxiety, Denies depression - Constitutional General appearance: cooperative, no distress, morbidly obese. - EENT Eyes: Reports anicteric sclerae, Reports normal apperance, ENT: Reports hard of hearing, Reports normal oropharynx, D - Neck Neck: Reports normal ROM, Denies lymphadenopathy, Denies rigidity, Denies stridor, Denies thyromegaly Carotids: bilateral: upstroke normal, upstroke delayed Thyroid: bilateral: normal size - Respiratory Respiratory: bilateral: diminished, dullness, no rales, rhonchi, wheezing - Cardiovascular Rhythm: irregularly irregular Heart sounds: normal: S1, S2 Abnormal Heart Sounds: Reports systolic murmur, Reports S3 Gallop - Gastrointestinal General gastrointestinal: Reports hepatomegaly, Reports normal bowel sounds, Reports soft, no tenderness - Integumentary acute and chronic vascular cellulitis of the lower extremity from the knee down with open ulcer right pretibial, toes are dusky blue color 3+ pedal edema bilaterally, dorsalis pedis +2. - Neurologic Neurologic: CNII-XII intact - Musculoskeletal Musculoskeletal: Reports gait not evaluated, Reports generalized weakness, - Psychiatric Psychiatric: A&O x's 2 appropriate affect, intact judgment & insight, patient is having episodes of severe confusion including sundowners during the material handler 1st shift. - Labs CBC & Chem 7: 05/25/19 15:40 05/26/19 08:27 Labs: Abnormal Lab Results - Last 24 Hours (Table) 05/26/19 05/26/19 05/26/19 Range/Units 08:27 13:42 20:10 POC Glucose (mg/dL) (75-99) mg/dL Troponin I 0.071 H* 0.065 H* (0.000-0.034) ng/mL HDL Cholesterol 26 L (40-60) mg/dL 05/26/19 05/27/19 Range/Units 20:32 11:42 POC Glucose (mg/dL) 109 H 101 H (75-99) mg/dL Troponin I (0.000-0.034) ng/mL HDL Cholesterol (40-60) mg/dL Microbiology - Last 24 Hours (Table) 05/26/19 13:39 Gram Stain - Preliminary Leg - Right Wound Culture - Preliminary 05/25/19 15:40 Blood Culture - Preliminary Blood No Growth after 24 hours Assessment and Plan Plan: 1. Acute metabolic encephalopathy secondary to lower extremity cellulitis and dementia. Patient's son has not with social work with plan for guardianship as his home setting may not be safe for him.. 2. Acute on chronic lower extremity cellulitis with venous stasis ulcers. Patient is on Rocephin. Consult with Dr. Soares and wound care team. Wound culture in progress. Continue Lasix 40 mg IV every 12 hours, Aldactone 50 mg twice daily. 3. Elevated troponins of unclear significance. Repeat troponins, echocardiogram and cardiology consult requested. Patient denies having any chest pain. 4. History of coronary artery disease and previous myocardial infarction. Cardiology is on consult. Continue aspirin 325 mg daily, Lopressor 100 mg 2 times daily, lisinopril 5 mg daily. 5. Chronic systolic heart failure and ischemic cardiomyopathy. Continue Lasix IV, Lopressor, lisinopril, Aldactone. Monitor daily electrolytes, I&O's and weight. 6. Chronic atrial fibrillation. Continue Lopressor, digoxin 125 g daily and eliquis 5 mg twice daily. 7. Hyperlipidemia. Continue Lipitor 40 mg daily 8. Hypertension, hypertensive cardiovascular disease. Continue lisinopril 5 mg twice daily, Lopressor 100 mg 2 times daily. 9. COPD, stable without exacerbation. Continue Singulair 10 mg daily. 10. Morbid obesity with BMI of 40. 11. Diabetes mellitus type 2. Continue metformin 500 mg twice daily, NovoLog scale before meals and at bedtime. 12. Gout, chronic. Continue allopurinol and colchicine. 13. Benign prostatic hypertrophy. Continue Flomax 0.8 mg daily and monitor for urinary retention. 14. Recurrent depression. Continue Zoloft 50 mg daily. 15. Gastroesophageal reflux disease and GI prophylaxis. Continue Protonix. 16. DVT prophylaxis. Eliquis. 17. Possible obstructive sleep apnea. Recommend sleep study as an outpatient. Melatonin will be added for insomnia. Discharge plan: To be determined. PT and OT consults will be requested. Social work met with family regarding guardianship. Impression and plan of care have been directed as dictated by the signing physician. Kusum Alvarez nurse practitioner acting as scribe for signing physician.
[2019-05-27 17:05] LABS: Glucose,Whole Blood 87 mg/dL (75-99)
[2019-05-27] MEDS: PANTOPRAZOLE 40 MG TABLET PO SCH (19:26)
[2019-05-27] MEDS: MELATONIN 3 MG TABLET PO SCH (20:20)
[2019-05-27 20:57] LABS: Glucose,Whole Blood 108 mg/dL (75-99)
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
[2019-05-28 06:28] LABS: Glucose,Whole Blood 89 mg/dL (75-99)
[2019-05-28] MEDS: INSULIN ASPART (NovoLOG) 100 UNIT/ML VIAL SQ SCH ×4 (06:29→21:04)
[2019-05-28] MEDS: OXYBUTYNIN 10 MG TAB.ER.24 PO SCH (10:01)
[2019-05-28] MEDS: PANTOPRAZOLE 40 MG TABLET PO SCH (10:01)
[2019-05-28] MEDS: TAMSULOSIN 0.4 MG CAP.ER.24H PO SCH (10:01)
[2019-05-28] MEDS: SPIRONOLACTONE 25 MG TAB PO SCH ×2 (10:01→21:56)
[2019-05-28] MEDS: DIGOXIN 125 MCG TAB PO SCH (10:01)
[2019-05-28] MEDS: APIXABAN 5 MG TAB PO SCH ×2 (10:01→21:56)
[2019-05-28] MEDS: LISINOPRIL 5 MG TAB PO SCH (10:01)
[2019-05-28] MEDS: COLCHICINE 0.6 MG EACH PO SCH ×2 (10:01→21:56)
[2019-05-28] MEDS: ASPIRIN 81 MG PO SCH (10:01)
[2019-05-28] MEDS: ALLOPURINOL 300 MG TAB PO SCH (10:01)
[2019-05-28] MEDS: SERTRALINE 50 MG TAB PO SCH (10:01)
[2019-05-28] MEDS: FUROSEMIDE 10 MG/ML 4 ML VIAL IV SCH (10:02)
[2019-05-28] MEDS: metFORMIN 500 MG TAB PO SCH ×2 (10:02→21:56)
[2019-05-28] MEDS: MONTELUKAST 10 MG TAB PO SCH (10:02)
[2019-05-28] MEDS: METOPROLOL TARTRATE 50 MG TAB PO SCH ×2 (10:02→22:00)
[2019-05-28] MEDS: HYDROPHILIC CREAM 180 GM TUBE TOPICAL SCH (10:02)
--- NOTE | 2019-05-28 11:44 | P.CNNES ---
History of Present Illness Consult date: 05/28/19 Requesting physician: Kusum Alvarez Reason for Consult: Altered mental status History of Present Illness: Patient is a 68-year-old male, who is not much ambulatory, lives by himself, but support person comes 3 times a week to help with daily activities. The nursing manager called patient's sister that patient was confused and his legs were weeping, suspected cellulitis, therefore was brought to the hospital on 019. Patient has been diagnosed with cellulitis, started on Rocephin. Patient does not know much details about his history. His sister was present, who provided most of the history. She states that this is the third time that patient had episode of confusion. The first time it happened 2 years ago when he was septic. The second time it happened 6-8 months ago he was walking around neighborhood confused. He was diagnosed with possible UTI at that time. This is a third time that he has cellulitis and also is also acting confused. There is also report that he is not taking medications regularly. Patient does not have structured living, does not work, therefore gets disoriented also. Patient had a 2-D echo performed, which revealed sinus rhythm. There is severe global hypokinesis of left ventricle. Right ventricle is severely enlarged. Left atrium is moderately dilated. Left atrium is severely dilated. There is mild aortic valve sclerosis with mild aortic regurgitation. Aortic root is dilated. Patient had a computed tomography scan of head which was negative for any acute process. EKG showed atrial fibrillation with premature ventricular complexes. Patient is on aspirin 81 mg daily, Apixaban 5 mg twice a day and Lipitor 40 mg. Venous Doppler negative for DVT. Chest x-ray showed cardiomegaly. Review of Systems Positive for some shortness of breath, memory disturbance, leg swelling, denies any chest pain. No slurred speech facial droop. He is hard of hearing. Denies any pain in the ear. Denies vision loss. Denies dysphagia. Past Medical History Past Medical History: Atrial Fibrillation, Heart Failure, COPD, Dementia, GERD/Reflux, Hyperlipidemia, Hypertension, Myocardial Infarction (SC), Prostate Disorder, Renal Disease, Skin Disorder Additional Past Medical History / Comment(s): Mild dementia, cardiomyopathy, last known EF was 20-25%, afib with RVR in past, chronic lower leg edema, chronic vascular cellulitis lower extremities, lumbar DDD, back pain, previous history of GI bleed, doudenitis, diverticulum, BPH, athrities bilateral knees and back, COPD, chronic lower extremity once, history of fall Last Myocardial Infarction Date:: 07/2015 History of Any Multi-Drug Resistant Organisms: None Reported Past Surgical History: Heart Catheterization, Orthopedic Surgery Additional Past Surgical History / Comment(s): 2002 cardiac cath-no intervention, R knee arthroscopy, L knee I & D for prepatellar bursa infection - arthrotomy, PICC line insertion with eventual removal, lumbar and bilateral knee steroid injections, cataract surgery bilaterally,EGD/colonoscopy. Past Anesthesia/Blood Transfusion Reactions: No Reported Reaction Past Psychological History: Anxiety, Depression Additional Psychological History / Comment(s): Pt lives alone. He ambulates with a walker. His brother, Jason comes to his home 3 days a week and does pt's shopping and cleans his home. His sister, Katy transports him to [employer] since he no longer drives. He is a of 2 yrs. VNA nurse comes to his home once a month to manage medications and check him over. Smoking Status: Never smoker Past Drug Use History: None Reported - Past Family History Father History Unknown: Yes Family Medical History: Coronary Artery Disease (CAD), Myocardial Infarction (SC) Additional Family Medical History / Comment(s): Father had CABG. He passed from a SC at the age of 62 yrs. Mother History Unknown: Yes Family Medical History: Cancer, Congestive Heart Failure (CHF), COPD, Diabetes Mellitus Additional Family Medical History / Comment(s): Mother had lung cancer. She was a smoker. She at the age of 62 yrs. Medications and Allergies Home Medications Medication Instructions Recorded Confirmed Type Metoprolol Tartrate [Lopressor] 100 mg PO BID 08/03/15 05/25/19 History Digoxin [Lanoxin] 125 mcg PO DAILY #30 tab 08/07/15 05/25/19 Rx Montelukast [Singulair] 10 mg PO DAILY #0 NS 08/07/15 05/25/19 Rx Omeprazole [PriLOSEC] 40 mg PO DAILY 06/19/16 05/25/19 History Sertraline HCl 50 mg PO DAILY 06/19/16 05/25/19 History Allopurinol [Zyloprim] 300 mg PO DAILY 05/25/19 05/25/19 History Apixaban [Eliquis] 5 mg PO BID 05/25/19 05/25/19 History Aspirin EC [Ecotrin] 325 mg PO DAILY 05/25/19 05/25/19 History Atorvastatin [Lipitor] 40 mg PO HS 05/25/19 05/25/19 History Colchicine 0.6 mg PO BID 05/25/19 05/25/19 History Ergocalciferol [Vitamin D2] 50,000 unit PO Q7D 05/25/19 05/25/19 History Furosemide [Lasix] See Taper PO DIRECTED 05/25/19 05/25/19 History Krill Oil 1,000 mg PO DAILY 05/25/19 05/25/19 History Lisinopril [Prinivil] 5 mg PO DAILY 05/25/19 05/25/19 History Loperamide HCl [Imodium A-D] 2 mg PO QID PRN 05/25/19 05/25/19 History Nitroglycerin Sl Tabs [Nitrostat] 0.4 mg SUBLINGUAL Q5M PRN 05/25/19 05/25/19 History Oxybutynin Chloride [Oxybutynin 10 mg PO DAILY 05/25/19 05/25/19 History Chloride ER] Spironolactone 50 mg PO BID 05/25/19 05/25/19 History Tamsulosin [Flomax] 0.8 mg PO PC-[id number] 05/25/19 05/25/19 History metFORMIN HCL [Glucophage] 500 mg PO BID 05/25/19 05/25/19 History Allergies Allergy/AdvReac Type Severity Reaction Status Date / Time No Known Allergies Allergy Verified 05/25/19 15:18 Physical Examination - Vital Signs Vital Signs: Vital Signs Temp Pulse Resp BP Pulse Ox 05/28/19 08:00 97.5 F L 64 16 80/49 100 05/28/19 03:15 98.2 F 92 16 92/60 94 L 05/27/19 23:00 98.1 F 72 16 90/61 94 L 05/27/19 19:40 98.1 F 73 18 94/60 97 05/27/19 16:00 98.2 F 78 16 111/42 95 05/27/19 12:27 98.4 F 67 16 94/61 97 Intake and Output 05/27/19 05/28/19 05/28/19 22:59 06:59 14:59 Intake Total 240 410 Output Total 150 Balance 240 -150 410 Intake: Intake, IV Titration 50 Amount cefTRIAXone 1 gm In 50 Sodium Chloride 0.9% 50 ml @ 100 mls/hr IVPB Q24HR [facility] Rx#:[id number] Oral 240 360 Output: Urine 150 Other: Voiding Method Urinal Urinal # Voids 1 1 # Bowel Movements 1 Weight 108.3 kg On examination patient is an elderly male, in no distress. He is alert and awake. Patient states that it is March 2019. He knows that Mr. Kirby is the president. Also that he is in [facility] in [facility]. Speech is clear with no aphasia or dysarthria. Hearing is decreased. On cranial nerve examination pupils are round and reacting, visual jimenez are full, extraocular muscles are intact. Face is symmetric and tongue protrudes the midline. Palatal elevation and sensation normal. Muscle strength is normal in the arms and legs distally and proximally. Reflexes are diminished. He has swelling of both both legs. Sensations are equal. No ataxia for [id number] testing. Tone and bulk of muscles normal. Patient has evidence of gout involving multiple joints of the hands. Results Patient's B12 is 601 on 05/26/2019. Hemoglobin A1c 5.6 on 05/26/2019. TSH 1.42. Cholesterol 82, LDL 45, HDL 26. Liver panel normal. RPR negative. - Laboratory Findings CBC and BMP: 05/25/19 15:40 05/26/19 08:27 Abnormal Lab Findings: Abnormal Labs 05/25/19 05/25/19 05/25/19 15:40 15:40 15:40 MCHC 28.4 L Lymphocytes # 0.8 L D-Dimer BUN 27 H POC Glucose (mg/dL) Plasma Lactic Acid Jaycob Total Bilirubin 1.4 H Troponin I 0.064 H* HDL Cholesterol 05/25/19 05/26/19 05/26/19 15:40 08:27 08:27 MCHC Lymphocytes # D-Dimer 0.79 H BUN 26 H POC Glucose (mg/dL) Plasma Lactic Acid Jaycob 2.3 H* Total Bilirubin 1.5 H Troponin I HDL Cholesterol 05/26/19 05/26/19 05/26/19 08:27 13:42 20:10 MCHC Lymphocytes # D-Dimer BUN POC Glucose (mg/dL) Plasma Lactic Acid Jaycob Total Bilirubin Troponin I 0.071 H* 0.065 H* HDL Cholesterol 26 L 05/26/19 05/27/19 05/27/19 20:32 11:42 20:56 MCHC Lymphocytes # D-Dimer BUN POC Glucose (mg/dL) 109 H 101 H 108 H Plasma Lactic Acid Jaycob Total Bilirubin Troponin I HDL Cholesterol Assessment and Plan Assessment: * Altered mental status, probably due to mild toxic metabolic encephalopathy. Patient has cellulitis. * Recurrent episodes of delirium/encephalopathy in the setting of some infectious process. Probable underlying cognitive impairment. * Obesity * Atrial fibrillation, on anticoagulation. * CHF, CAD * Acute on chronic lower extremity cellulitis with venous stasis ulcers. * Hyperlipidemia * Hypertension * Chronic gout. Plan: * Treatment of underlying toxic metabolic causes as per internal medicine and ot her specialties. * We will check carotid Doppler to rule out carotid stenosis. * Patient's sister was recommended to have patient follow up with local neurologist after discharge, if mental functioning continues to be suboptimal, in order to rule out underlying cognitive impairment, to initiate appropriate treatment. * Your medical management. * Neurology coverage not available on the weekend.
[2019-05-28 11:48] LABS: Glucose,Whole Blood 80 mg/dL (75-99)
--- NOTE | 2019-05-28 13:44 | US ---
EXAMINATION TYPE: US carotid duplex BILAT DATE OF EXAM: 05/28/2019 COMPARISON: NONE CLINICAL HISTORY: Altered mental status. EXAM MEASUREMENTS: RIGHT: Peak Systolic Velocity (PSV) cm/sec ----- Right CCA: 53.1 ----- Right ICA: 68.0 ----- Right ECA: 64.7 ICA/CCA ratio: 1.3 RIGHT: End Diastole cm/sec ----- Right CCA: 8.6 ----- Right ICA: 18.6 ----- Right ECA: 5.4 LEFT: Peak Systolic Velocity (PSV) cm/sec ----- Left CCA: 70.2 ----- Left ICA: 57.5 ----- Left ECA: 59.2 ICA/CCA ratio: 0.8 LEFT: End Diastole cm/sec ----- Left CCA: 14.2 ----- Left ICA: 17.4 ----- Left ECA: 0.0 VERTEBRALS (direction of flow): Right Vertebral: Antegrade Left Vertebral: Antegrade Rhythm: Normal No significant stenosis seen, bilateral shadowing plaque at bulbs. No elevated velocities. IMPRESSION: Mild degree of grayscale atheromatous plaquing with no sonographically evident hemodynam ically significant stenosis within either visualized carotid arterial system. Criteria for Assigning % of Stenosis / Diameter reduction (Estimation based on the indirect measurements of the internal carotid artery velocities (ICA PSV). 1. Normal (no stenosis)=ICA PSV < 125 cm/s: ratio < 2.0: ICA EDV<40 cm/s. 2. Less than 50% stenosis=ICA PSV < 125 cm/s: ratio < 2.0: ICA EDV<40 cm/s. 3. 50 to 69% stenosis=ICA PSV of 125 to 230 cm/s: ration 2.0 ? 4.0: ICA EDV 40-100 cm/s. 4. Greater than 70% stenosis to near occlusion= ICA PSV > 230 cm/s: ratio > 4.0: ICA EDV > 100 cm/s. 5. Near occlusion= ICA PSV velocities may be low or undetectable: variable ratio and ICA EDV. 6. Total occlusion=unable to detect flow.
[2019-05-28] MEDS: FUROSEMIDE 40 MG TAB PO SCH (14:51)
--- NOTE | 2019-05-28 16:24 | P.CN ---
Psychiatric Consult - . Consult date: 05/28/19 Consult:: 05/28/19 16:14 IDENTIFYING DATA: This patient is a 68-year-old male who currently lives alone in a house is a and has no kids is retired. HISTORY OF PRESENT ILLNESS: The patient he presented to the ER several days ago for altered mental status/confusion and family stated that patient was not taking his medications. Psychiatry was consulted for mental health evaluation, guardianship. As per nurse taking care of the patient states that she has not had any complaints with the patient and his been directable and cooperative. Patient was seen at the bedside was agreeable to speak to fiction and nonfiction writer prose. Patient was directable and cooperative during the interview and stated that he did not know why he is in the hospital and was fairly vague about details preceding his hospitalization. He states that his family "saying something else" and he disagrees with that. He states that he does not like being moved in and out of hospitals and the way that he is been treated by some doctors in the past. Patient also claims that some staff have condescending attitudes. Patient spoke about having a "stoic mood" and denies any depression at this time. He denies any anxiety. He spoke of his who 5 years ago has been finding difficult to deal with it. When asked about his medical condition in the hospital he states that he does have an infection and swollen legs and requires medications and claims that this could relapse if he is not on treated well with medications and antibiotics. Patient endorsed having some mistrust issues with healthcare providers as "they didn't treat my well". He denies any problems with sleep and appetite. Patient was alert and oriented 3 he had a good attention span was able to identify 3 objects and could spell world backwards. At this time patient denies any suicidal or homical ideations, intent or plan. Patient denies any auditory, visual hallucinations and denies any paranoia or delusions. Patient denies any illicit substance use at this time including marijuana and alcohol. PAST PSYCHIATRIC HISTORY: Patient admitted to a remote history of depression and claims that he is on Zoloft at this time. Patient denies any psychiatric outpatient follow-up denies any psychiatric admissions. He denies any suicide attempts in the past. PAST MEDICAL HISTORY: Hypertension, cardiovascular disease, CHF, COPD, A. fib, edema in lower extremities ALLERGIES: as per EMR. CHEMICAL DEPENDENCY HISTORY: as per HPI. FAMILY PSYCHIATRIC/SUBSTANCE USE HISTORY: Claims his father was a alcoholic SOCIAL HISTORY: He states that he is born and raised in [place] and moved to [place]. He claims a few worked at the [email or web address] and is now retired. He states that he has 3 years of college education. Patient is a and lives alone in a house and has no kids. MENTAL STATUS EXAM: General Appearance: Patient appears to be stated age is alert, directable and attempts to cooperate. Patient is sitting in chair with no acute distress. Behavior: Patient is calmly lying in bed without any agitated behavior. Speech: Patient's speech is fluent and nonpressured. Soft tone. Mood/Affect: Patient reports their mood is "ok", affect is congruent Suicidality/Homicidality: Patient denies having any suicidal or homicidal ideation intent or plan. Perceptions: Patient denies any auditory or visual hallucinations. Though content/process: There is no evidence of any delusional thought content and thought process is tangential/circumstantial. Memory and concentration: Patient was alert and oriented 3 he had a good attention span was able to identify 3 objects and could spell world backwards Judgment and insight: fair IMPRESSIONS: Delirium, likely due to multiple etiologies toxic-metabolic and infection. Depressive disorder unspecified PLAN: -At this time patient does NOT meet criteria for inpatient psychiatric admission. -Patient DOES have decision making capacity at this time and is able to reason through and communicate/appreciate the risks, benefits and alternatives to treatment. -Delirium precautions recommended with patient including - avoiding use of narcotics and ASSISTANT STORE MANAGER sedatives, limit anticholinergic medications when possible, frequent re-orientation, minimize use of restraints, open window shades during the day and close them at night -Would recommend the following medication changes/additions: Can continue on Zoloft 50 mg daily for mood. Continue with melatonin nightly for sleep. -Psychiatry will sign off at this point 05/28/19 16:15
--- NOTE | 2019-05-28 16:25 | P.PN ---
Subjective Progress Note Date: 05/28/19 This is a 68-year-old morbidly obese male patient of Dr. Pal with past medical history of hypertension with hypertensive cardiovascular disease, ischemic cardiopathy, chronic systolic heart failure, non-ST elevated myocardial infarction, COPD, chronic A. fib and chronic edema and mild dementia. Patient presented to [facility] emergency center with altered mental status and confusion as well as concern that he was not taking this medications as relayed by the family members but the patient at the time of this evaluation adamantly denies any confusion. He states that he came in due to lower extremity redness and edema with wounds. He states he has had this for many years but is currently in exacerbation. Legs are more red than his normal. It is sometimes itchy. He states his edema to the lower extremities is about his baseline. Initial vital signs: Afebrile, heart rate 112, blood pressure 123/95, pulse ox 97%. CBC was unremarkable. BUN 27 creatinine 1.03, blood sugar 91. CAT scan of the brain showed no acute abnormalities. Total bilirubin 1.4 and other liver function tests within normal limits, albumin 3.9. Initial lactic acid 2.3 and repeat 1.4. ProBNP 6210. Troponin 0.064. Urinalysis negative for infection. Patient was started on ceftriaxone and admitted to the cardiac stepdown unit. Consults added for cardiology for elevated troponin and repeat troponins of been ordered as well as echocardiogram. Consult with Dr. Soares added for lower extremity cellulitis and wound care consult as well. Dr. Moran has been consulted regarding venous stasis. 05/27: History of an, patient had intermittent episodes of confusion and last night he was very confused and found wandering in his room, refusing to follow commands. Patient was very uncooperative at the time with the nursing staff. We have subsequently added and consults with psychiatry and neurology for mental status changes. Son is currently at the bedside. Would also recommend the patient have a sleep study as an outpatient. The patient has been afebrile, heart rate 67, blood pressure 94/61. Pulse ox 97% on room air. Blood sugars running between 89 and 101. Wound culture and blood culture in progress. Patient has been seen by Dr. Soares and wound care team for lower extremity cellulitis and local wound care as well as Rocephin continued. Patient has also been seen by vascular surgery and rated at a CEAP score of 6. Ultrasound of the lower extremities negative for DVT. Social work has met with the patient's son and he will be pursuing guardianship. Discharge plan is not been determined. PT and OT is recommending subacute rehab. 05/28: Patient's confusion was better through the night. Patient was seen yesterday by neurology and carotid duplex was ordered which reported no significant stenosis. Anticipate that he will be seen by psychiatry today. Echocardiogram reveals EF less than 20, mild mitral regurgitation, mild tricuspid regurgitation, no pulmonary hypertension. We will transition patient to oral Lasix today at 40 mg twice daily and start Zaroxolyn 2.5 mg on Saturdays. Blood pressure is on the low side this morning lisinopril will be decreased to 2.5 mg. Treponema nonreactive, TSH 1.420, vitamin B12 601. Social work and case management are working with the family for discharge planning. Son may pursue guardianship next week. At this time patient is requesting to go home and this may occur over the weekend. [facility] Case management has made arrangements for VNA if patient is discharged to home. Objective - Vital Signs Vital signs: Vital Signs Temp 97.5 F L 05/28/19 08:00 Pulse 64 05/28/19 08:00 Resp 16 05/28/19 08:00 BP 80/49 05/28/19 08:00 Pulse Ox 100 05/28/19 08:00 Intake & Output 05/27/19 05/28/19 05/28/19 18:59 06:59 18:59 Intake Total 840 410 Output Total 800 150 Balance 40 -150 410 Weight 108.3 kg Intake: Intake, IV Titration 50 Amount cefTRIAXone 1 gm In 50 Sodium Chloride 0.9% 50 ml @ 100 mls/hr IVPB Q24HR [facility] Rx#:[id number] Oral 840 360 Output: Urine 800 150 Other: Voiding Method Urinal Urinal # Voids 1 1 # Bowel Movements 1 - Exam Review of Systems Constitutional: Reports weakness, Denies anorexia, Denies chills, Denies fatigue, Denies fever, Denies lethargy, Denies poor appetite Ears, nose, mouth and throat: Denies dysphagia, Denies nasal congestion, Denies nasal discharge, Denies vertigo Cardiovascular: Reports edema, Reports leg edema, Denies shortness of breath, Denies syncope Respiratory: Denies cough, Denies cough with sputum, Denies dyspnea, Denies excessive sputum, Denies hemoptysis, Denies home oxygen, Denies respiratory infections, Denies wheezing Gastrointestinal: Denies abdominal pain, Denies diarrhea, Denies loss of appetite, Denies nausea, Denies vomiting Genitourinary: Denies dysuria, Denies urinary hesitancy, Denies urinary retention Musculoskeletal: Reports muscle weakness, Denies frequent falls, Denies myalgias Integumentary: Reports color changes, Reports darkening of skin, Reports wounds, Denies pruritus, Denies rash Neurological: Reports change in mentation, Denies change in speech, Denies numbness, Denies weakness Psychiatric: Denies anxiety, Denies depression - Constitutional General appearance: cooperative, no distress, morbidly obese. - EENT Eyes: Reports anicteric sclerae, Reports normal apperance, ENT: Reports hard of hearing, Reports normal oropharynx, D - Neck Neck: Reports normal ROM, Denies lymphadenopathy, Denies rigidity, Denies stridor, Denies thyromegaly Carotids: bilateral: upstroke normal, upstroke delayed Thyroid: bilateral: normal size - Respiratory Respiratory: bilateral: diminished, dullness, no rales, rhonchi, wheezing - Cardiovascular Rhythm: irregularly irregular Heart sounds: normal: S1, S2 Abnormal Heart Sounds: Reports systolic murmur, Reports S3 Gallop - Gastrointestinal General gastrointestinal: Reports hepatomegaly, Reports normal bowel sounds, Reports soft, no tenderness - Integumentary acute and chronic vascular cellulitis of the lower extremity from the knee down with open ulcer right pretibial, toes are dusky blue color 1+ pedal edema bilaterally, dorsalis pedis +2. 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 - Labs CBC & Chem 7: 05/25/19 15:40 05/26/19 08:27 Labs: Abnormal Lab Results - Last 24 Hours (Table) 05/27/19 Range/Units 20:56 POC Glucose (mg/dL) 108 H (75-99) mg/dL Microbiology - Last 24 Hours (Table) 05/26/19 13:39 Gram Stain - Final Leg - Right Wound Culture - Final 05/25/19 15:40 Blood Culture - Preliminary Blood No Growth after 48 hours Assessment and Plan Plan: 1. Acute metabolic encephalopathy secondary to lower extremity cellulitis and dementia. Continue local wound care, antibiotics. 2. Acute on chronic lower extremity cellulitis with venous stasis ulcers. Patient is on Rocephin. Consult with Dr. Soares and wound care team. Wound culture in progress. Continue Lasix 40 mg oral twice daily, Zaroxolyn 2.5 mg on Friday and Aldactone 50 mg twice daily. 3. Elevated troponins of unclear significance. Repeat troponins, echocardiogram and cardiology consult requested. Patient denies having any olga lidia st pain. 4. History of coronary artery disease and previous myocardial infarction. Cardiology is on consult. Continue aspirin 81 mg daily, Lopressor 100 mg 2 times daily, lisinopril decreased to 2.5 mg daily. 5. Chronic systolic heart failure and ischemic cardiomyopathy. Continue Lasix IV, Lopressor, lisinopril, Aldactone. Monitor daily electrolytes, I&O's and weight. 6. Chronic atrial fibrillation. Continue Lopressor, digoxin 125 g daily and eliquis 5 mg twice daily. 7. Hyperlipidemia. Continue Lipitor 40 mg daily 8. Hypertension, hypertensive cardiovascular disease. Continue lisinopril 2.5 mg twice daily, Lopressor 100 mg 2 times daily. 9. COPD, stable without exacerbation. Continue Singulair 10 mg daily. 10. Morbid obesity with BMI of 40. 11. Diabetes mellitus type 2. Continue metformin 500 mg twice daily, NovoLog scale before meals and at bedtime. 12. Gout, chronic. Continue allopurinol and colchicine. 13. Benign prostatic hypertrophy. Continue Flomax 0.8 mg daily and monitor for urinary retention. 14. Recurrent depression. Continue Zoloft 50 mg daily. 15. Gastroesophageal reflux disease and GI prophylaxis. Continue Protonix. 16. DVT prophylaxis. Eliquis. 17. Possible obstructive sleep apnea. Recommend sleep study as an outpatient. Melatonin will be added for insomnia. Discharge plan: Home with VNA or subacute rehab depending on son's decision. Son may pursue guardianship next week. Impression and plan of care have been directed as dictated by the signing physician. Kusum Alvarez nurse practitioner acting as scribe for signing physician.
[2019-05-28 17:11] LABS: Glucose,Whole Blood 88 mg/dL (75-99)
[2019-05-28 20:27] LABS: Glucose,Whole Blood 93 mg/dL (75-99)
[2019-05-28] MEDS: MELATONIN 3 MG TABLET PO SCH (21:56)
[2019-05-28] MEDS: ATORVASTATIN 40 MG TAB PO SCH (21:56)
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
[2019-05-29 00:38] LABS: Glucose,Whole Blood 108 mg/dL (75-99)
[2019-05-29] MEDS: traMADol 50 MG TAB PO PRN (03:29)
[2019-05-29] MEDS: INSULIN ASPART (NovoLOG) 100 UNIT/ML VIAL SQ SCH ×4 (07:42→22:34)
[2019-05-29 07:43] LABS: Glucose,Whole Blood 82 mg/dL (75-99)
[2019-05-29] MEDS: METOPROLOL TARTRATE 50 MG TAB PO SCH ×2 (07:48→22:35)
[2019-05-29] MEDS: SERTRALINE 50 MG TAB PO SCH (07:48)
[2019-05-29] MEDS: DIGOXIN 125 MCG TAB PO SCH (07:48)
[2019-05-29] MEDS: SPIRONOLACTONE 25 MG TAB PO SCH ×2 (07:48→22:34)
[2019-05-29] MEDS: TAMSULOSIN 0.4 MG CAP.ER.24H PO SCH (07:48)
[2019-05-29] MEDS: ASPIRIN 81 MG PO SCH (07:48)
[2019-05-29] MEDS: PANTOPRAZOLE 40 MG TABLET PO SCH (07:48)
[2019-05-29] MEDS: LISINOPRIL 2.5 MG TAB PO SCH (07:48)
[2019-05-29] MEDS: ALLOPURINOL 300 MG TAB PO SCH (07:48)
[2019-05-29] MEDS: FUROSEMIDE 40 MG TAB PO SCH ×2 (07:48→15:48)
[2019-05-29] MEDS: MONTELUKAST 10 MG TAB PO SCH (07:49)
[2019-05-29] MEDS: metFORMIN 500 MG TAB PO SCH ×2 (07:49→22:34)
[2019-05-29] MEDS: APIXABAN 5 MG TAB PO SCH ×2 (07:49→22:33)
[2019-05-29 08:09] LABS: HCT 43.7 % (39.0-53.0); HGB 12.8 gm/dL (13.0-17.5); Hypochromasia Marked; MCH 26.3 pg (25.0-35.0); MCHC 29.4 g/dL (31.0-37.0); MCV 89.7 fL (80.0-100.0); Mean Platelet Volume 7.8; Platelet Count 216 k/uL (150-450); RBC 4.87 m/uL (4.30-5.90); RDW 15.2 % (11.5-15.5); WBC 5.2 k/uL (3.8-10.6)
[2019-05-29 08:19] LABS: Calcium 9.6 mg/dL (8.4-10.2); Potassium 4.6 mmol/L (3.5-5.1)
[2019-05-29] MEDS ORDERED: METOLAZONE 2.5 MG TAB PO SCH (09:00)
[2019-05-29] MEDS: COLCHICINE 0.6 MG EACH PO SCH ×2 (09:52→22:33)
[2019-05-29] MEDS: OXYBUTYNIN 10 MG TAB.ER.24 PO SCH (09:52)
[2019-05-29] MEDS: HYDROPHILIC CREAM 180 GM TUBE TOPICAL SCH (09:53)
[2019-05-29 11:55] LABS: Glucose,Whole Blood 95 mg/dL (75-99)
--- NOTE | 2019-05-29 14:47 | P.PN ---
Subjective Progress Note Date: 05/29/19 This is a 68-year-old morbidly obese male patient of Dr. Pal with past medical history of hypertension with hypertensive cardiovascular disease, ischemic cardiopathy, chronic systolic heart failure, non-ST elevated myocardial infarction, COPD, chronic A. fib and chronic edema and mild dementia. Patient presented to [facility] emergency center with altered mental status and confusion as well as concern that he was not taking this medications as relayed by the family members but the patient at the time of this evaluation adamantly denies any confusion. He states that he came in due to lower extremity redness and edema with wounds. He states he has had this for many years but is currently in exacerbation. Legs are more red than his normal. It is sometimes itchy. He states his edema to the lower extremities is about his baseline. Initial vital signs: Afebrile, heart rate 112, blood pressure 123/95, pulse ox 97%. CBC was unremarkable. BUN 27 creatinine 1.03, blood sugar 91. CAT scan of the brain showed no acute abnormalities. Total bilirubin 1.4 and other liver function tests within normal limits, albumin 3.9. Initial lactic acid 2.3 and repeat 1.4. ProBNP 6210. Troponin 0.064. Urinalysis negative for infection. Patient was started on ceftriaxone and admitted to the cardiac stepdown unit. Consults added for cardiology for elevated troponin and repeat troponins of been ordered as well as echocardiogram. Consult with Dr. Soares added for lower extremity cellulitis and wound care consult as well. Dr. Moran has been consulted regarding venous stasis. 05/27: History of an, patient had intermittent episodes of confusion and last night he was very confused and found wandering in his room, refusing to follow commands. Patient was very uncooperative at the time with the nursing staff. We have subsequently added and consults with psychiatry and neurology for mental status changes. Son is currently at the bedside. Would also recommend the patient have a sleep study as an outpatient. The patient has been afebrile, heart rate 67, blood pressure 94/61. Pulse ox 97% on room air. Blood sugars running between 89 and 101. Wound culture and blood culture in progress. Patient has been seen by Dr. Soares and wound care team for lower extremity cellulitis and local wound care as well as Rocephin continued. Patient has also been seen by vascular surgery and rated at a CEAP score of 6. Ultrasound of the lower extremities negative for DVT. Social work has met with the patient's son and he will be pursuing guardianship. Discharge plan is not been determined. PT and OT is recommending subacute rehab. 05/28: Patient's confusion was better through the night. Patient was seen yesterday by neurology and carotid duplex was ordered which reported no significant stenosis. Anticipate that he will be seen by psychiatry today. Echocardiogram reveals EF less than 20, mild mitral regurgitation, mild tricuspid regurgitation, no pulmonary hypertension. We will transition patient to oral Lasix today at 40 mg twice daily and start Zaroxolyn 2.5 mg on Saturdays. Blood pressure is on the low side this morning lisinopril will be decreased to 2.5 mg. Treponema nonreactive, TSH 1.420, vitamin B12 601. Social work and case management are working with the family for discharge planning. Son may pursue guardianship next week. At this time patient is requesting to go home and this may occur over the weekend. Patient will be transferred to the [facility] floor. Case management has made arrangements for VNA if patient is discharged to home. 05/29: Patient is sitting up in chair in no apparent distress he was seen and evaluated by psychiatry there was no reason for inpatient psychiatric admission at this time patient is making his own decision, await family input for disposition as there were some concern regarding taking the medication and there may be possible guardianship with a son. Patient will be kept in the hospital for another 24 hours until final decision is reached. Review of Systems Constitutional: Reports weakness, Denies anorexia, Denies chills, Denies fatigue, Denies fever, Denies lethargy, Denies poor appetite Ears, nose, mouth and throat: Denies dysphagia, Denies nasal congestion, Denies nasal discharge, Denies vertigo Cardiovascular: Reports edema, Reports leg edema, Denies shortness of breath, Denies syncope Respiratory: Denies cough, Denies cough with sputum, Denies dyspnea, Denies e xcessive sputum, Denies hemoptysis, Denies home oxygen, Denies respiratory infections, Denies wheezing Gastrointestinal: Denies abdominal pain, Denies diarrhea, Denies loss of appetite, Denies nausea, Denies vomiting Genitourinary: Denies dysuria, Denies urinary hesitancy, Denies urinary retention Musculoskeletal: Reports muscle weakness, Denies frequent falls, Denies myalgias Integumentary: Reports color changes, Reports darkening of skin, Reports wounds, Denies pruritus, Denies rash Neurological: Reports change in mentation, Denies change in speech, Denies numbness, Denies weakness Psychiatric: Denies anxiety, Denies depression Objective - Vital Signs Vital signs: Vital Signs Temp 97.8 F 05/29/19 04:51 Pulse 75 05/29/19 04:51 Resp 20 05/29/19 04:51 BP 125/69 05/29/19 04:51 Pulse Ox 94 L 05/29/19 04:51 Intake & Output 05/28/19 05/29/19 05/29/19 18:59 06:59 18:59 Intake Total 410 400 Balance 410 400 Intake: Intake, IV Titration 50 Amount cefTRIAXone 1 gm In 50 Sodium Chloride 0.9% 50 ml @ 100 mls/hr IVPB Q24HR [facility] Rx#:[id number] Oral 360 400 Other: # Voids 1 2 - Exam - Constitutional General appearance: cooperative, no distress, morbidly obese. - EENT Eyes: Reports anicteric sclerae, Reports normal apperance, ENT: Reports hard of hearing, Reports normal oropharynx, D - Neck Neck: Reports normal ROM, Denies lymphadenopathy, Denies rigidity, Denies stridor, Denies thyromegaly Carotids: bilateral: upstroke normal, upstroke delayed Thyroid: bilateral: normal size - Respiratory Respiratory: bilateral: diminished, dullness, no rales, rhonchi, wheezing - Cardiovascular Rhythm: irregularly irregular Heart sounds: normal: S1, S2 Abnormal Heart Sounds: Reports systolic murmur, Reports S3 Gallop - Gastrointestinal General gastrointestinal: Reports hepatomegaly, Reports normal bowel sounds, Reports soft, no tenderness - Integumentary acute and chronic vascular cellulitis of the lower extremity from the knee down with open ulcer right pretibial, toes are dusky blue color 1+ pedal edema bilaterally, dorsalis pedis +2. 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 - Labs CBC & Chem 7: 05/29/19 07:40 05/29/19 07:40 Labs: Abnormal Lab Results - Last 24 Hours (Table) 05/29/19 Range/Units 00:36 POC Glucose (mg/dL) 108 H (75-99) mg/dL Microbiology - Last 24 Hours (Table) 05/25/19 15:40 Blood Culture - Preliminary Blood No Growth after 72 hours 05/26/19 13:39 Gram Stain - Final Leg - Right Wound Culture - Final Assessment and Plan Assessment: Assessment and Plan Plan: 1. Acute metabolic encephalopathy secondary to lower extremity cellulitis and dementia. Continue local wound care, antibiotics. Appears much better today. 2. Acute on chronic lower extremity cellulitis with venous stasis ulcers. Patient is on Rocephin. Consult with Dr. Soares and wound care team. Wound culture in progress. Continue Lasix 40 mg oral twice daily, Zaroxolyn 2.5 mg on Friday and Aldactone 50 mg twice daily. 3. Elevated troponins of unclear significance. Repeat troponins, echocardiogram and cardiology consult requested. Patient denies having any chest pain. 4. History of coronary artery disease and previous myocardial infarction. Card iology is on consult. Continue aspirin 81 mg daily, Lopressor 100 mg 2 times daily, lisinopril decreased to 2.5 mg daily. 5. Chronic systolic heart failure and ischemic cardiomyopathy. Continue Lasix IV, Lopressor, lisinopril, Aldactone. Monitor daily electrolytes, I&O's and weight. 6. Chronic atrial fibrillation. Continue Lopressor, digoxin 125 g daily and eliquis 5 mg twice daily. 7. Hyperlipidemia. Continue Lipitor 40 mg daily 8. Hypertension, hypertensive cardiovascular disease. Continue lisinopril 2.5 mg twice daily, Lopressor 100 mg 2 times daily. 9. COPD, stable without exacerbation. Continue Singulair 10 mg daily. 10. Morbid obesity with BMI of 40. 11. Diabetes mellitus type 2. Continue metformin 500 mg twice daily, NovoLog scale before meals and at bedtime. 12. Gout, chronic. Continue allopurinol and colchicine. 13. Benign prostatic hypertrophy. Continue Flomax 0.8 mg daily and monitor for urinary retention. 14. Recurrent depression. Continue Zoloft 50 mg daily. 15. Gastroesophageal reflux disease and GI prophylaxis. Continue Protonix. 16. DVT prophylaxis. Eliquis. 17. Possible obstructive sleep apnea. Recommend sleep study as an outpatient. Melatonin will be added for insomnia. Discharge plan: Home with VNA or subacute rehab depending on son's decision. Son may pursue guardianship next week.
[2019-05-29 16:57] LABS: Glucose,Whole Blood 105 mg/dL (75-99)
[2019-05-29 20:41] LABS: Glucose,Whole Blood 105 mg/dL (75-99)
[2019-05-29] MEDS: MELATONIN 3 MG TABLET PO SCH (22:33)
[2019-05-29] MEDS: ATORVASTATIN 40 MG TAB PO SCH (22:34)
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
[2019-05-30] MEDS: traMADol 50 MG TAB PO PRN ×2 (03:58→09:33)
[2019-05-30 04:44] VITALS: BP 97/63; PULSE 63; TEMP 97.6
[2019-05-30] MEDS: APIXABAN 5 MG TAB PO SCH (07:02)
[2019-05-30] MEDS: ALLOPURINOL 300 MG TAB PO SCH (07:03)
[2019-05-30] MEDS: PANTOPRAZOLE 40 MG TABLET PO SCH (07:03)
[2019-05-30] MEDS: DIGOXIN 125 MCG TAB PO SCH (07:03)
[2019-05-30] MEDS: LISINOPRIL 2.5 MG TAB PO SCH (07:03)
[2019-05-30] MEDS: METOPROLOL TARTRATE 50 MG TAB PO SCH (07:03)
[2019-05-30] MEDS: SPIRONOLACTONE 25 MG TAB PO SCH (07:03)
[2019-05-30] MEDS: SERTRALINE 50 MG TAB PO SCH (07:03)
[2019-05-30] MEDS: MONTELUKAST 10 MG TAB PO SCH (07:03)
[2019-05-30] MEDS: FUROSEMIDE 40 MG TAB PO SCH (07:03)
[2019-05-30] MEDS: TAMSULOSIN 0.4 MG CAP.ER.24H PO SCH (07:04)
[2019-05-30] MEDS: ASPIRIN 81 MG PO SCH (07:04)
[2019-05-30] MEDS: HYDROPHILIC CREAM 180 GM TUBE TOPICAL SCH (07:04)
[2019-05-30] MEDS: metFORMIN 500 MG TAB PO SCH (07:04)
[2019-05-30] MEDS: COLCHICINE 0.6 MG EACH PO SCH (07:07)
[2019-05-30] MEDS: OXYBUTYNIN 10 MG TAB.ER.24 PO SCH (07:07)
[2019-05-30 07:20] VITALS: RESP 16
[2019-05-30 08:44] LABS: Glucose,Whole Blood 101 mg/dL (75-99)
[2019-05-30] MEDS: INSULIN ASPART (NovoLOG) 100 UNIT/ML VIAL SQ SCH ×2 (08:44→12:05)
[2019-05-30 09:35] LABS: Basophils % (A) 1 %; Eosinophils # (A) 0.1 k/uL (0-0.7); Eosinophils % (A) 3 %; HGB 12.1 gm/dL (13.0-17.5); Hypochromasia Marked; Lymphocytes # (A) 0.9 k/uL (1.0-4.8); Lymphocytes % (A) 18 %; MCH 26.2 pg (25.0-35.0); MCHC 29.6 g/dL (31.0-37.0); MCV 88.7 fL (80.0-100.0); Mean Platelet Volume 7.2; Monocytes # (A) 0.4 k/uL (0-1.0); Monocytes % (A) 9 %; Neutrophils # (A) 3.1 k/uL (1.3-7.7); Neutrophils % (A) 66 %; Platelet Count 181 k/uL (150-450); RBC 4.62 m/uL (4.30-5.90); RDW 14.5 % (11.5-15.5); WBC 4.7 k/uL (3.8-10.6)
[2019-05-30 09:47] LABS: Albumin 3.8 g/dL (3.5-5.0); Calcium 9.2 mg/dL (8.4-10.2); Potassium 4.6 mmol/L (3.5-5.1); Total Bilirubin 0.8 mg/dL (0.2-1.3); Total Protein 6.1 g/dL (6.3-8.2)
--- NOTE | 2019-05-30 10:51 | P.DS ---
Providers Date of admission: 05/27/19 10:05 Expected date of discharge: 05/30/19 Attending physician: Emerson Cruz Consults: 05/26/19 13:05 Consult Physician Routine Consulting Provider: Neal Baird Consult Reason/Comments: elevated trop Do you want consulting provider notified?: Yes Consult Physician Routine Consulting Provider: Emerson Soares Consult Reason/Comments: lower extremity cellulitis Do you want consulting provider notified?: Yes 05/26/19 13:32 Consult Physician Routine Consulting Provider: Emily Moran Consult Reason/Comments: venous stasis Do you want consulting provider notified?: Yes 05/27/19 10:04 Consult Physician Routine Consulting Provider: Mehdi Tinajero Consult Reason/Comments: mental health eval for guradanitahip Do you want consulting provider notified?: Yes 05/27/19 13:16 Consult Physician Routine Consulting Provider: Miguel Hadley Consult Reason/Comments: mental status changes Do you want consulting provider notified?: Yes Primary care physician: Pj Pla [facility] Course: This is a 68-year-old morbidly obese male patient of Dr. Pal with past medical history of hypertension with hypertensive cardiovascular disease, ischemic cardiopathy, chronic systolic heart failure, non-ST elevated myocardial infarction, COPD, chronic A. fib and chronic edema and mild dementia. Patient presented to [facility] emergency center with altered mental status and confusion as well as concern that he was not taking this medications as relayed by the family members but the patient at the time of this evaluation adamantly denies any confusion. He states that he came in due to lower extremity redness and edema with wounds. He states he has had this for many years but is currently in exacerbation. Legs are more red than his normal. It is sometimes itchy. He states his edema to the lower extremities is about his baseline. Initial vital signs: Afebrile, heart rate 112, blood pressure 123/95, pulse ox 97%. CBC was unremarkable. BUN 27 creatinine 1.03, blood sugar 91. CAT scan of the brain showed no acute abnormalities. Total bilirubin 1.4 and other liver function tests within normal limits, albumin 3.9. Initial lactic acid 2.3 and repeat 1.4. ProBNP 6210. Troponin 0.064. Urinalysis negative for infection. Patient was started on ceftriaxone and admitted to the cardiac stepdown unit. Consults added for cardiology for elevated troponin and repeat troponins of been ordered as well as echocardiogram. Consult with Dr. Soares added for lower extremity cellulitis and wound care consult as well. Dr. Moran has been consulted regarding venous stasis. 05/27: History of an, patient had intermittent episodes of confusion and last night he was very confused and found wandering in his room, refusing to follow commands. Patient was very uncooperative at the time with the nursing staff. We have subsequently added and consults with psychiatry and neurology for mental status changes. Son is currently at the bedside. Would also recommend the patient have a sleep study as an outpatient. The patient has been afebrile, heart rate 67, blood pressure 94/61. Pulse ox 97% on room air. Blood sugars running between 89 and 101. Wound culture and blood culture in progress. Patient has been seen by Dr. Soares and wound care team for lower extremity cellulitis and local wound care as well as Rocephin continued. Patient has also been seen by vascular surgery and rated at a CEAP score of 6. Ultrasound of the lower extremities negative for DVT. Social work has met with the patient's son and he will be pursuing guardianship. Discharge plan is not been determined. PT and OT is recommending subacute rehab. 05/28: Patient's confusion was better through the night. Patient was seen ye by neurology and carotid duplex was ordered which reported no significant stenosis. Anticipate that he will be seen by psychiatry today. Echocardiogram reveals EF less than 20, mild mitral regurgitation, mild tricuspid regurgitation, no pulmonary hypertension. We will transition patient to oral Lasix today at 40 mg twice daily and start Zaroxolyn 2.5 mg on Saturdays. Blood pressure is on the low side this morning lisinopril will be decreased to 2.5 mg. Treponema nonreactive, TSH 1.420, vitamin B12 601. Social work and case management are working with the family for discharge planning. Son may pursue guardianship next week. At this time patient is requesting to go home and this may occur over the weekend. Patient will be transferred to the [facility] floor. Case management has made arrangements for [facility]NA if patient is discharged to home. 05/29: Patient is sitting up in chair in no apparent distress he was seen and evaluated by psychiatry there was no reason for inpatient psychiatric admission at this time patient is making his own decision, await family input for disposition as there were some concern regarding taking the medication and there may be possible guardianship with a son. Patient will be kept in the hospital for another 24 hours until final decision is reached. Discharge diagnoses: 1. Acute metabolic encephalopathy secondary to lower extremity cellulitis. 2. Acute on chronic lower extremity cellulitis with venous stasis ulcers. 3. Elevated troponins of unclear significance. 4. History of coronary artery disease and previous myocardial infarction. 5. Chronic systolic heart failure and ischemic cardiomyopathy. 6. Chronic atrial fibrillation. 7. Hyperlipidemia. 8. Hypertension, hypertensive cardiovascular disease. 9. COPD, stable without exacerbation. 10. Morbid obesity with BMI of 40. 11. Diabetes mellitus type 2. 12. Gout, chronic. 13. Benign prostatic hypertrophy. 14. Recurrent depression. Cleared by Psychiatry to make decision and can be discharged home. Patient Condition at Discharge: Stable Plan - Discharge Summary Discharge Rx Participant: Yes New Discharge Prescriptions: No Action Metoprolol Tartrate [Lopressor] 100 mg PO BID Digoxin [Lanoxin] 125 mcg PO DAILY #30 tab Montelukast [Singulair] 10 mg PO DAILY #0 NS Sertraline HCl 50 mg PO DAILY Omeprazole [PriLOSEC] 40 mg PO DAILY metFORMIN HCL [Glucophage] 500 mg PO BID Nitroglycerin Sl Tabs [Nitrostat] 0.4 mg SUBLINGUAL Q5M PRN PRN Reason: Chest Pain Lisinopril [Prinivil] 5 mg PO DAILY Ergocalciferol [Vitamin D2] 50,000 unit PO Q7D Aspirin EC [Ecotrin] 325 mg PO DAILY Allopurinol [Zyloprim] 300 mg PO DAILY Furosemide [Lasix] See Taper PO DIRECTED Spironolactone 50 mg PO BID Oxybutynin Chloride [Oxybutynin Chloride ER] 10 mg PO DAILY Krill Oil 1,000 mg PO DAILY Colchicine 0.6 mg PO BID Atorvastatin [Lipitor] 40 mg PO HS Apixaban [Eliquis] 5 mg PO BID Loperamide HCl [Imodium A-D] 2 mg PO QID PRN PRN Reason: Loose Stool Tamsulosin [Flomax] 0.8 mg PO PC-BRKFST Discharge Medication List Metoprolol Tartrate [Lopressor] 100 mg PO BID 08/03/15 [History] Digoxin [Lanoxin] 125 mcg PO DAILY #30 tab 08/07/15 [Rx] Montelukast [Singulair] 10 mg PO DAILY #0 NS 08/07/15 [Rx] Omeprazole [PriLOSEC] 40 mg PO DAILY 06/19/16 [History] Sertraline HCl 50 mg PO DAILY 06/19/16 [History] Allopurinol [Zyloprim] 300 mg PO DAILY 05/25/19 [History] Apixaban [Eliquis] 5 mg PO BID 05/25/19 [History] Aspirin EC [Ecotrin] 325 mg PO DAILY 05/25/19 [History] Atorvastatin [Lipitor] 40 mg PO HS 05/25/19 [History] Colchicine 0.6 mg PO BID 05/25/19 [History] Ergocalciferol [Vitamin D2] 50,000 unit PO Q7D 05/25/19 [History] Furosemide [Lasix] See Taper PO DIRECTED 05/25/19 [History] Krill Oil 1,000 mg PO DAILY 05/25/19 [History] Lisinopril [Prinivil] 5 mg PO DAILY 05/25/19 [History] Loperamide HCl [Imodium A-D] 2 mg PO QID PRN 05/25/19 [History] Nitroglycerin Sl Tabs [Nitrostat] 0.4 mg SUBLINGUAL Q5M PRN 05/25/19 [History] Oxybutynin Chloride [Oxybutynin Chloride ER] 10 mg PO DAILY 05/25/19 [History] Spironolactone 50 mg PO BID 05/25/19 [History] Tamsulosin [Flomax] 0.8 mg PO PC-BRKFST 05/25/19 [History] metFORMIN HCL [Glucophage] 500 mg PO BID 05/25/19 [History] Follow up Appointment(s)/Referral(s): Pj Pal MD [Primary Care Provider] - 1-2 days [facility] Visiting Nurse, [NON-STAFF] -
[2019-05-30 11:34] LABS: Glucose,Whole Blood 116 mg/dL (75-99)
== END 2019-05-30 14:48 | disposition home health service (06) | DRG 602 ==
LOC: EC 13:21 → 3SCARD 18:59 → OBSVTOIN 05-27 10:05 → 4MS4W 05-28 15:34
PROVIDERS: ADMIT Internal Medicine Geriatric Medicine; ATTEND Internal Medicine Geriatric Medicine
DX: L03.115 Cellulitis of right lower limb (principal); G93.41 Metabolic encephalopathy; L97.822 Non-pressure chronic ulcer of other part of left lower leg with fat layer exposed; L97.812 Non-pressure chronic ulcer of other part of right lower leg with fat layer exposed; F33.9 Major depressive disorder, recurrent, unspecified; I48.20 Chronic atrial fibrillation, unspecified; I50.22 Chronic systolic (congestive) heart failure; Z68.41 Body mass index [BMI] 40.0-44.9, adult; L03.116 Cellulitis of left lower limb; I11.0 Hypertensive heart disease with heart failure; J44.9 Chronic obstructive pulmonary disease, unspecified; I87.2 Venous insufficiency (chronic) (peripheral); E66.01 Morbid (severe) obesity due to excess calories; I25.5 Ischemic cardiomyopathy; I08.1 Rheumatic disorders of both mitral and tricuspid valves; F03.90 Unspecified dementia, unspecified severity, without behavioral disturbance, psychotic disturbance, mood disturbance, and anxiety; E11.9 Type 2 diabetes mellitus without complications; E78.5 Hyperlipidemia, unspecified; F41.9 Anxiety disorder, unspecified; I25.10 Atherosclerotic heart disease of native coronary artery without angina pectoris; I25.2 Old myocardial infarction; I49.3 Ventricular premature depolarization; K21.9 Gastro-esophageal reflux disease without esophagitis; M1A.9XX0 Chronic gout, unspecified, without tophus (tophi); N40.0 Benign prostatic hyperplasia without lower urinary tract symptoms; M51.36 Other intervertebral disc degeneration, lumbar region; R60.9 Edema, unspecified; K57.90 Diverticulosis of intestine, part unspecified, without perforation or abscess without bleeding; M17.0 Bilateral primary osteoarthritis of knee; R79.89 Other specified abnormal findings of blood chemistry; G47.33 Obstructive sleep apnea (adult) (pediatric); Z79.01 Long term (current) use of anticoagulants; Z79.82 Long term (current) use of aspirin; Z79.84 Long term (current) use of oral hypoglycemic drugs; Z79.899 Other long term (current) drug therapy; Z91.81 History of falling; Z80.1 Family history of malignant neoplasm of trachea, bronchus and lung; Z82.49 Family history of ischemic heart disease and other diseases of the circulatory system; Z82.5 Family history of asthma and other chronic lower respiratory diseases; Z83.3 Family history of diabetes mellitus
CPT/HCPCS: 36415; 70450; 71046; 80048; 80053; 80061; 81003; 82607; 83036; 83605; 83880; 84443; 84484; 85025; 85027; 85379; 85610; 85730; 86780; 87040; 87070; 87205; 93005; 93306; 93880; 93970; 94760; 96374; 99285

== ENCOUNTER 2019-08-12 12:19 | Inpatient (IN) | payer MEDICARE ==
[2019-08-12] MEDS ORDERED: SODIUM CHLORIDE 0.9% 1,000 ML IV ONE ×2 (12:53→16:02)
[2019-08-12] MEDS ORDERED: LIDOCAINE 1% INJ 10MG/ML (20 ML MDV) SQ STA (13:23)
[2019-08-12 13:39] LABS: Anisocytosis Slight; Basophils % (A) 0 %; Eosinophils # (A) 0.1 k/uL (0-0.7); Eosinophils % (A) 0 %; HCT 41.4 % (39.0-53.0); HGB 11.9 gm/dL (13.0-17.5); Hypochromasia Marked; Lymphocytes # (A) 0.7 k/uL (1.0-4.8); Lymphocytes % (A) 5 %; MCH 23.5 pg (25.0-35.0); MCHC 28.7 g/dL (31.0-37.0); MCV 81.8 fL (80.0-100.0); Mean Platelet Volume 8.8; Monocytes # (A) 0.8 k/uL (0-1.0); Monocytes % (A) 7 %; Neutrophils # (A) 10.7 k/uL (1.3-7.7); Neutrophils % (A) 86 %; Platelet Count 228 k/uL (150-450); Poikilocytosis Slight; RBC 5.06 m/uL (4.30-5.90); RDW 16.7 % (11.5-15.5); WBC 12.4 k/uL (3.8-10.6)
[2019-08-12 13:57] LABS: INR 1.3 (<1.2); Partial Thromboplastin Time 22.8 sec (22.0-30.0); Prothrombin Time 13.3 sec (9.0-12.0)
[2019-08-12 14:44] LABS: Albumin 3.3 g/dL (3.5-5.0); Potassium 5.4 mmol/L (3.5-5.1); Total Bilirubin 1.7 mg/dL (0.2-1.3); Total Protein 5.7 g/dL (6.3-8.2)
--- NOTE | 2019-08-12 15:06 | XR ---
EXAMINATION TYPE: XR chest 2V DATE OF EXAM: 08/12/2019 COMPARISON: 05/25/2019 HISTORY: Altered mental status TECHNIQUE: Frontal and lateral views of the chest are obtained. FINDINGS: There is no focal air space opacity, pleural effusion, or pneumothorax seen. The cardiac silhouette size is markedly enlarged as seen on the prior. The osseous structures are intact. Diffu se osseous demineralization. Vertebral body heights are difficult to discern. IMPRESSION: Similar marked enlargement of cardiac mediastinal silhouette. No acute process.
--- NOTE | 2019-08-12 15:28 | CT ---
EXAMINATION TYPE: CT brain wo con DATE OF EXAM: 08/12/2019 COMPARISON: 05/25/2019 HISTORY: altered mental status CT DLP: 1062.4 mGycm Automated exposure control for dose reduction was used. TECHNIQUE: CT scan of the head is performed without contrast. FINDINGS: There is no acute intracranial hemorrhage or midline shift identified. There is diffuse v entricular and sulcal prominence consistent with diffuse age-related cerebral atrophy. There is low- attenuation in the periventricular white matter consistent with chronic small vessel ischemic change. Atherosclerosis is seen in the intracranial vasculature. The globes are intact and the visualized si nuses are clear. IMPRESSION: No acute intracranial hemorrhage or midline shift. There is diffuse age-related cerebra l atrophy and chronic small vessel ischemic change noted.
--- NOTE | 2019-08-12 16:53 | ED ---
General Adult HPI - General Chief complaint: Wound/Laceration Stated complaint: altered & foot lac Time Seen by Provider: 08/12/19 12:39 Source: EMS, RN notes reviewed, old records reviewed Mode of arrival: EMS Limitations: altered mental status - History of Present Illness Initial comments: 68-year-old male patient passed medical history of COPD, mild dementia, atrial fibrillation presents to ED with EMS. Patient has a caregiver who helps with medication administration today to activities. In caregiver arrived patient was covered in blood in his lower extremities. Is reportedly somewhat altered and more than usual at the time. Patient was transported to Hospital. Upon elevation Hospital patient reports that his leg started bleeding and he was unable to stop it. Denies any falls or trauma to the head of the neck. Denies any focal area of pain at this time. Systemic: Pt denies fatigue, fever/chills, rash. Pt denies weakness, night swea ts, weight loss. Neuro: Pt denies headache, visual disturbances, syncope or pre-syncope. HEENT: Pt denies ocular discharge or irritation, otalgia, rhinorrhea, pharyngitis or notable lymphadenopathy. Cardiopulmonary: Pt denies chest pain, SOB, heart palpitations, dyspnea on exertion. Abdominal/GI: Pt denies abdominal pain, n/v/d. : Pt denies dysuria, burning w/ urination, frequency/urgency. Denies new onset urinary or bowel incontinence. MSK: Pt denies myalgia, loss of strength or function in extremities. Neuro: Pt denies new onset weakness, paresthesias. - Related Data Home Medications Medication Instructions Recorded Confirmed Metoprolol Tartrate [Lopressor] 100 mg PO BID 08/03/15 05/25/19 Omeprazole [PriLOSEC] 40 mg PO DAILY 06/19/16 05/25/19 Sertraline HCl 50 mg PO DAILY 06/19/16 05/25/19 Allopurinol [Zyloprim] 300 mg PO DAILY 05/25/19 05/25/19 Apixaban [Eliquis] 5 mg PO BID 05/25/19 05/25/19 Aspirin EC [Ecotrin] 325 mg PO DAILY 05/25/19 05/25/19 Atorvastatin [Lipitor] 40 mg PO HS 05/25/19 05/25/19 Colchicine 0.6 mg PO BID 05/25/19 05/25/19 Ergocalciferol [Vitamin D2 50,000 unit PO Q7D 05/25/19 05/25/19 (DRISDOL)] Furosemide [Lasix] See Taper PO DIRECTED 05/25/19 05/25/19 Krill Oil 1,000 mg PO DAILY 05/25/19 05/25/19 Loperamide HCl [Imodium A-D] 2 mg PO QID PRN 05/25/19 05/25/19 Nitroglycerin Sl Tabs [Nitrostat] 0.4 mg SUBLINGUAL Q5M PRN 05/25/19 05/25/19 Oxybutynin Chloride [Oxybutynin 10 mg PO DAILY 05/25/19 05/25/19 Chloride ER] Spironolactone 50 mg PO BID 05/25/19 05/25/19 Tamsulosin [Flomax] 0.8 mg PO PC-BRKFST 05/25/19 05/25/19 metFORMIN HCL [Glucophage] 500 mg PO BID 05/25/19 05/25/19 Previous Rx's Medication Instructions Recorded Digoxin [Lanoxin] 125 mcg PO DAILY #30 tab 08/07/15 Montelukast [Singulair] 10 mg PO DAILY #0 NS 08/07/15 Furosemide [Lasix] 40 mg PO BID@0900,1500 #60 tab 05/30/19 Hydrophilic Cream [Triad Cream] 1 applic TOPICAL DAILY #30 applic 05/30/19 Lisinopril [Zestril] 2.5 mg PO DAILY #30 tab 05/30/19 Melatonin 6 mg PO HS tablet 05/30/19 Metolazone [Zaroxolyn] 2.5 mg PO SA #15 tab 05/30/19 SILVER sulfADIAZINE CREAM 1 applic TOPICAL DAILY #30 applic 05/30/19 [Silvadene Cream] Allergies Allergy/AdvReac Type Severity Reaction Status Date / Time No Known Allergies Allergy Verified 08/12/19 12:32 Review of Systems ROS Statement: Those systems with pertinent positive or pertinent negative responses have been documented in the HPI. ROS Other: All systems not noted in ROS Statement are negative. Past Medical History Past Medical History: Atrial Fibrillation, Heart Failure, COPD, Dementia, GERD/Reflux, Hyperlipidemia, Hypertension, Myocardial Infarction (CT), Prostate Disorder, Renal Disease, Skin Disorder Additional Past Medical History / Comment(s): Mild dementia, cardiomyopathy, last known EF was 20-25%, afib with RVR in past, chronic lower leg edema, chronic vascular cellulitis lower extremities, lumbar DDD, back pain, previous history of GI bleed, doudenitis, diverticulum, BPH, athrities bilateral knees and back, COPD, chronic lower extremity once, history of fall Last Myocardial Infarction Date:: 07/2015 History of Any Multi-Drug Resistant Organisms: None Reported Past Surgical History: Heart Catheterization, Orthopedic Surgery Additional Past Surgical History / Comment(s): 2002 cardiac cath-no intervention, R knee arthroscopy, L knee I & D for prepatellar bursa infection - arthrotomy, PICC line insertion with eventual removal, lumbar and bilateral knee steroid injections, cataract surgery bilaterally,EGD/colonoscopy. Past Anesthesia/Blood Transfusion Reactions: No Reported Reaction Past Psychological History: Anxiety, Depression Smoking Status: Never smoker Past Alcohol Use History: None Reported Past Drug Use History: None Reported - Past Family History Father History Unknown: Yes Family Medical History: Coronary Artery Disease (CAD), Myocardial Infarction (CT) Additional Family Medical History / Comment(s): Father had CABG. He passed from a CT at the age of 62 yrs. Mother History Unknown: Yes Family Medical History: Cancer, Congestive Heart Failure (CHF), COPD, Diabetes Mellitus Additional Family Medical History / Comment(s): Mother had lung cancer. She was a smoker. She at the age of 62 yrs. General Exam - General Exam Comments Initial Comments: Constitutional: NAD, AOX3, Pt has pleasant affect. HEENT: NC/AT, trachea midline, neck supple, no lymphadenopathy. Posterior pharynx non erythematous, without exudates. External ears appear normal, without discharge. Mucous membranes moist. Eyes PERRLA, EOM intact. There is no scleral icterus. No pallor noted. Cardiopulmonary: RRR, no murmurs, rubs or gallops, no JVD noted. Lungs CTAB in anterior and posterior jimenez. No peripheral edema. Abdominal exam: Abdomen soft and non-distended. Abdomen non-tender to palpation in all 4 quadrants. Bowel sounds active in LLQ. No hepatosplenomegaly. No ecchymosis Neuro: CN II-XII intact. No nuchal rigidity. No raccon eyes, no linton sign, no hemotympanum. No cervical spinal tenderness. An 80. MSK: Dry blood noted at lower extremities bilaterally. Chronic superficial wounds with mild cyanotic changes noted lower extremities bilaterally distally. Small area of varicosity bleeding was noted, stopped without intervention. No posterior calf tenderness bilaterally, homans sign negative bilaterally. Posterior tibialis and radial pulse +2 bilaterally. Sensation intact in upper and lower extremities. Full active ROM in upper and lower extremities, 5/5 stregnth. Limitations: altered mental status Course Vital Signs 08/12/19 08/12/19 08/12/19 12:26 13:33 15:00 Temperature 97.7 F Pulse Rate 83 81 87 Respiratory 18 20 18 Rate Blood Pressure 84/71 91/53 115/85 O2 Sat by Pulse 99 96 95 Oximetry Medical Decision Making - Medical Decision Making 68-year-old male patient passed medical history of COPD, mild dementia, atrial fibrillation presents to ED with EMS. Patient has a caregiver who helps with medication administration today to activities. In caregiver arrived patient was covered in blood in his lower extremities. Is reportedly somewhat altered and more than usual at the time. Patient was transported to Hospital. Upon elevation Hospital patient reports that his leg started bleeding and he was unable to stop it. Denies any falls or trauma to the head of the neck. Denies any focal area of pain at this time. Pt VSS, afebrile. Physical exam displayed: Dry blood noted at lower extremities bilaterally. Chronic superficial wounds with mild cyanotic changes noted lower extremities bilaterally distally. Small area of varicosity bleeding was noted, stopped without intervention. Neurologic exam wnl, NIH 0. Laboratory investigations revealed leukocytosis of 12.4 with left shift. Correlation studies revealed mildly elevated PT/INR. CMP revealed potassium 5.4, elevated BUN/creatinine, mildly elevated troponin. Patient does appear to have chronic troponin leak. No chest pain this time. CT brain C-spine displayed no acute process. Chest x- ray revealed no acute process. Siblings are patient came in for additional history. Reports the patient does have some baseline confusion. Sister reports that patient did appear slightly more confused yesterday. For states that he seems around his baseline. Patient states that he is asymptomatic at this time. Patient does report that he has not been drinking much water recently. Patient administered 2 L NS over 4 hours for acute kidney injury, placed on maintenance fluids 100 now. Patient will be admitted for hydration, HPI, lower extremity cellulitis. Patient initiated on ceftriaxone. Case discussed in depth with Dr. Benavidez. Will be admitted to Dr. Martinez of [facility]. - Lab Data Result diagrams: 08/12/19 13:00 08/12/19 14:20 Lab Results 08/12/19 08/12/19 08/12/19 Range/Units 13:00 13:00 13:00 WBC 12.4 H (3.8-10.6) k/uL RBC 5.06 (4.30-5.90) m/uL Hgb 11.9 L (13.0-17.5) gm/dL Hct 41.4 (39.0-53.0) % MCV 81.8 (80.0-100.0) fL MCH 23.5 L (25.0-35.0) pg MCHC 28.7 L (31.0-37.0) g/dL RDW 16.7 H (11.5-15.5) % Plt Count 228 (150-450) k/uL Neutrophils % 86 % Lymphocytes % 5 % Monocytes % 7 % Eosinophils % 0 % Basophils % 0 % Neutrophils # 10.7 H (1.3-7.7) k/uL Lymphocytes # 0.7 L (1.0-4.8) k/uL Monocytes # 0.8 (0-1.0) k/uL Eosinophils # 0.1 (0-0.7) k/uL Basophils # 0.0 (0-0.2) k/uL Hypochromasia Marked Poikilocytosis Slight Anisocytosis Slight PT 13.3 H (9.0-12.0) sec INR 1.3 H (<1.2) APTT 22.8 (22.0-30.0) sec Sodium (137-145) mmol/L Potassium (3.5-5.1) mmol/L Chloride (98-107) mmol/L Carbon Dioxide (22-30) mmol/L Anion Gap mmol/L BUN (9-20) mg/dL Creatinine (0.66-1.25) mg/dL Est GFR (CKD-EPI)AfAm (>60 ml/min/1.73 sqM) Est GFR (CKD-EPI)NonAf (>60 ml/min/1.73 sqM) Glucose (74-99) mg/dL Calcium (8.4-10.2) mg/dL Total Bilirubin (0.2-1.3) mg/dL AST (17-59) U/L ALT (4-49) U/L Alkaline Phosphatase (38-126) U/L Ammonia 13 (<30) umol/L Troponin I (0.000-0.034) ng/mL Total Protein (6.3-8.2) g/dL Albumin (3.5-5.0) g/dL 08/12/19 08/12/19 Range/Units 13:00 14:20 WBC (3.8-10.6) k/uL RBC (4.30-5.90) m/uL Hgb (13.0-17.5) gm/dL Hct (39.0-53.0) % MCV (80.0-100.0) fL MCH (25.0-35.0) pg MCHC (31.0-37.0) g/dL RDW (11.5-15.5) % Plt Count (150-450) k/uL Neutrophils % % Lymphocytes % % Monocytes % % Eosinophils % % Basophils % % Neutrophils # (1.3-7.7) k/uL Lymphocytes # (1.0-4.8) k/uL Monocytes # (0-1.0) k/uL Eosinophils # (0-0.7) k/uL Basophils # (0-0.2) k/uL Hypochromasia Poikilocytosis Anisocytosis PT (9.0-12.0) sec INR (<1.2) APTT (22.0-30.0) sec Sodium 135 L (137-145) mmol/L Potassium 5.4 H (3.5-5.1) mmol/L Chloride 100 (98-107) mmol/L Carbon Dioxide 21 L (22-30) mmol/L Anion Gap 14 mmol/L BUN 79 H (9-20) mg/dL Creatinine 2.46 H (0.66-1.25) mg/dL Est GFR (CKD-EPI)AfAm 30 (>60 ml/min/1.73 sqM) Est GFR (CKD-EPI)NonAf 26 (>60 ml/min/1.73 sqM) Glucose 96 (74-99) mg/dL Calcium 9.0 (8.4-10.2) mg/dL Total Bilirubin 1.7 H (0.2-1.3) mg/dL AST 74 H (17-59) U/L ALT 38 (4-49) U/L Alkaline Phosphatase 72 (38-126) U/L Ammonia (<30) umol/L Troponin I 0.082 H* (0.000-0.034) ng/mL Total Protein 5.7 L (6.3-8.2) g/dL Albumin 3.3 L (3.5-5.0) g/dL Disposition Clinical Impression: Cellulitis, Uremia, EMA (acute kidney injury), Dehydration Disposition: ADMITTED IP TO THIS [facility] Condition: Serious Is patient prescribed a controlled substance at d/c from ED?: No Referrals: Pj Pal MD [Primary Care Provider] - 1-2 days
[2019-08-12] MEDS ORDERED: NALOXONE 0.4 MG/ML 1 ML VIAL IV PRN (16:56)
[2019-08-12] MEDS: SODIUM CHLORIDE 0.9% 1,000 ML IV SCH (16:59)
[2019-08-12 17:25] LABS: Appearance,Urine Clear (Clear); Bacteria,Urine Rare /hpf; Bilirubin,Urine Negative (Negative); Blood,Urine Negative (Negative); Color,Urine Yellow; Glucose,Urine (UA) Negative (Negative); Hyaline Casts,Urine 37 /lpf (0-2); Ketones,Urine Negative (Negative); Leukocyte Esterase,Urine Trace (Negative); Mucus,Urine Rare /hpf; Nitrite,Urine Negative (Negative); Protein,Urine Trace (Negative); RBC,Urine 35 /hpf (0-5); Specific Gravity,Urine 1.019 (1.001-1.035); Squamous Epithelial Cell,Urine 1 /hpf (0-4); WBC,Urine 5 /hpf (0-5)
[2019-08-12 17:31] LABS: Amphetamine Screen,Urine Not Detected (NotDetected); Barbiturate Screen,Urine Not Detected (NotDetected); Benzodiazepines Screen,Urine Not Detected (NotDetected); Cocaine Screen,Urine Not Detected (NotDetected); Methadone Screen, Urine Not Detected (NotDetected); Opiate Screen,Urine Detected (NotDetected); Oxycodone Screen, Urine Not Detected (NotDetected); Phencyclidine Screen,Urine Not Detected (NotDetected); Tricyclic Antidepressant,Urine Not Detected (NotDetected); Urn Cannabinoid Scrn Not Detected (NotDetected)
[2019-08-12] MEDS: ACETAMINOPHEN TAB 325 MG TAB PO PRN (22:30)
[2019-08-12] MEDS: APIXABAN 5 MG TAB PO SCH (22:30)
[2019-08-12] MEDS: METOPROLOL TARTRATE 50 MG TAB PO SCH (22:30)
[2019-08-12 22:36] LABS: Glucose,Whole Blood 116 mg/dL (75-99)
[2019-08-13] MEDS: HALOPERIDOL LACTATE 5 MG/ML 1 ML VIAL IM PRN (01:08)
[2019-08-13] MEDS: SODIUM CHLORIDE 0.9% 1,000 ML IV SCH ×4 (03:42→21:38)
[2019-08-13] MEDS: ACETAMINOPHEN TAB 325 MG TAB PO PRN ×3 (04:47→18:12)
[2019-08-13 07:40] LABS: Anisocytosis Slight; Basophils % (A) 0 %; Eosinophils % (A) 0 %; HCT 35.5 % (39.0-53.0); HGB 10.1 gm/dL (13.0-17.5); Hypochromasia Marked; Lymphocytes # (A) 0.6 k/uL (1.0-4.8); Lymphocytes % (A) 6 %; MCH 23.4 pg (25.0-35.0); MCHC 28.6 g/dL (31.0-37.0); MCV 81.9 fL (80.0-100.0); Mean Platelet Volume 9.6; Monocytes # (A) 0.8 k/uL (0-1.0); Monocytes % (A) 8 %; Neutrophils % (A) 82 %; Platelet Count 227 k/uL (150-450); Poikilocytosis Slight; RBC 4.34 m/uL (4.30-5.90); RDW 16.7 % (11.5-15.5); WBC 9.6 k/uL (3.8-10.6)
[2019-08-13 07:53] LABS: Albumin 3.2 g/dL (3.5-5.0); Calcium 8.7 mg/dL (8.4-10.2); Potassium 5.1 mmol/L (3.5-5.1); Total Bilirubin 1.3 mg/dL (0.2-1.3); Total Protein 5.6 g/dL (6.3-8.2)
[2019-08-13] MEDS: APIXABAN 5 MG TAB PO SCH ×2 (08:42→21:57)
[2019-08-13] MEDS: METOPROLOL TARTRATE 50 MG TAB PO SCH ×2 (08:42→22:25)
[2019-08-13] MEDS: INSULIN ASPART (NovoLOG) 100 UNIT/ML VIAL SQ SCH ×4 (08:44→22:03)
[2019-08-13 08:45] LABS: Glucose,Whole Blood 120 mg/dL (75-99)
--- NOTE | 2019-08-13 08:56 | P.HPIM ---
History of Present Illness H&P Date: 08/13/19 Chief Complaint: Bleeding from LE, worsening confusion This is a 68-year-old male patient of Dr. Pal with past medical history of hypertension with hypertensive cardiovascular disease, hyperlipidemia, ischemic cardiopathy, chronic systolic heart failure, non-ST elevated myocardial infarction, COPD, chronic atrial fibrillation and chronic edema with chronic lower extremity cellulitis and dementia. Patient's caregiver came into his home and found that he had bleeding from his lower extremities where he has chronic wounds and abrasions and had increasing confusion from his baseline. EMS was contacted and patient was brought into [facility] emergency center. He was found to be afebrile but blood pressure was 84/71, pulse ox 99% on room air. WBC 12.4, hemoglobin 11.9. Sodium 135, potassium 5.4, chloride 100, CO2 21, BUN 79 creatinine 2.46. Total bilirubin 1.7, AST 74, ALT 38, alkaline phosphatase 72. Ammonia 13, urine drug screen positive for opiates. Troponins 0.082 and 0.079, albumin 3.3. Urinalysis was protein trace, RBCs 35, hyaline casts 37. Chest x-ray showed no acute process. CAT scan of the brain showed no acute intracranial hemorrhage or midline shift. There was diffuse age-related cerebral atrophy and chronic small vessel ischemic change. EKG was atrial fibrillation rate of 87. The patient was provided 2 L of IV fluids, started on Rocephin and Silvadene ordered for lower extremity wounds. [facility] Vital signs have been stable. Patient has had continued confusion through the night. [place] and patient was even somewhat combative during the night. Haldol was added last evening. Patient has not slept since admission. Patient gives history of having a problem for a week but then leads to business deal with property in [facility]. Patient had a recent hospitalization in May of this year which time he was treated for acute metabolic encephalopathy thought to be secondary to lower extremity cellulitis and venous stasis ulcers. His troponins were elevated at that time with no sign of acute coronary syndrome. He was seen by both neurology and psychiatry. He underwent CAT scan of the brain at that time that showed no acute findings, carotid duplex showed no significant stenosis. Echocardiogram was EF of 20 with mild mitral regurgitation, mild tricuspid regurgitation, no pulmonary hypertension. There was a plan for her son to obtain guardianship and unsure if this has been accomplished. Patient was stabilized and then discharged home with VNA. Review of Systems ROS unobtainable: due to mental status Past Medical History Past Medical History: Atrial Fibrillation, Heart Failure, COPD, Dementia, GERD/Reflux, Hyperlipidemia, Hypertension, Myocardial Infarction (LA), Prostate Disorder, Renal Disease, Skin Disorder Additional Past Medical History / Comment(s): Mild dementia, cardiomyopathy, last known EF was 20-25%, afib with RVR in past, chronic lower leg edema, chronic vascular cellulitis lower extremities, lumbar DDD, back pain, previous history of GI bleed, doudenitis, diverticulum, BPH, athrities bilateral knees and back, COPD, chronic lower extremity once, history of fall Last Myocardial Infarction Date:: 07/2015 History of Any Multi-Drug Resistant Organisms: None Reported Past Surgical History: Heart Catheterization, Orthopedic Surgery Additional Past Surgical History / Comment(s): 2002 cardiac cath-no intervention, R knee arthroscopy, L knee I & D for prepatellar bursa infection -arthrotomy, PICC line insertion with eventual removal, lumbar and bilateral knee steroid injections, cataract surgery bilaterally,EGD/colonoscopy. Past Anesthesia/Blood Transfusion Reactions: No Reported Reaction Past Psychological History: Anxiety, Depression Smoking Status: Never smoker Past Alcohol Use History: None Reported Past Drug Use History: None Reported - Past Family History Father History Unknown: Yes Family Medical History: Coronary Artery Disease (CAD), Myocardial Infarction (LA) Additional Family Medical History / Comment(s): Father had CABG. He passed from a LA at the age of 62 yrs. Mother History Unknown: Yes Family Medical History: Cancer, Congestive Heart Failure (CHF), COPD, Diabetes Mellitus Additional Family Medical History / Comment(s): Mother had lung cancer. She was a smoker. She at the age of 62 yrs. Medications and Allergies Home Medications Medication Instructions Recorded Confirmed Type Metoprolol Tartrate [Lopressor] 100 mg PO BID 08/03/15 08/12/19 History Montelukast [Singulair] 10 mg PO DAILY #0 NS 08/07/15 08/13/19 Rx Omeprazole [PriLOSEC] 40 mg PO DAILY 06/19/16 08/13/19 History Sertraline HCl 50 mg PO DAILY 06/19/16 08/13/19 History Allopurinol [Zyloprim] 300 mg PO DAILY 05/25/19 08/13/19 History Apixaban [Eliquis] 5 mg PO BID 05/25/19 08/13/19 History Aspirin EC [Ecotrin] 325 mg PO DAILY 05/25/19 08/13/19 History Atorvastatin [Lipitor] 40 mg PO HS 05/25/19 08/13/19 History Colchicine 0.6 mg PO BID 05/25/19 08/13/19 History Ergocalciferol [Vitamin D2 50,000 unit PO Q7D 05/25/19 08/13/19 History (DRISDOL)] Krill Oil 1,000 mg PO DAILY 05/25/19 08/13/19 History Loperamide HCl [Imodium A-D] 2 mg PO QID PRN 05/25/19 08/13/19 History Nitroglycerin Sl Tabs [Nitrostat] 0.4 mg SUBLINGUAL Q5M PRN 05/25/19 08/13/19 History Oxybutynin Chloride [Oxybutynin 10 mg PO DAILY 05/25/19 08/13/19 History Chloride ER] Spironolactone 50 mg PO BID 05/25/19 08/13/19 History Tamsulosin [Flomax] 0.8 mg PO PC-[id number] 05/25/19 08/13/19 History Lisinopril [Zestril] 2.5 mg PO DAILY #30 tab 05/30/19 08/12/19 Rx Furosemide [Lasix] 40 mg PO DAILY 08/12/19 08/12/19 History Niacin [Niacin ER] 500 mg PO DAILY 08/13/19 08/13/19 History Allergies Allergy/AdvReac Type Severity Reaction Status Date / Time No Known Allergies Allergy Verified 08/12/19 18:28 Physical Exam Vitals: Vital Signs Temp Pulse Pulse Resp BP BP Pulse Ox 08/13/19 05:32 97.9 F 63 18 108/70 94 L 08/12/19 20:00 74 08/12/19 18:48 98.4 F 80 18 95/77 96 08/12/19 17:00 83 18 93/76 96 08/12/19 15:00 87 18 115/85 95 08/12/19 13:33 81 20 91/53 96 08/12/19 12:26 97.7 F 83 18 84/71 99 Intake and Output 08/12/19 08/13/19 08/13/19 22:59 06:59 14:59 Intake Total 200 400 Output Total 800 600 Balance -600 -200 Intake: Intake, IV Titration 400 Amount Sodium Chloride 0.9% 1, 400 000 ml @ 100 mls/hr IV . Q10H [facility] Rx#:[id number] Oral 200 Output: Urine 800 600 Other: Voiding Method Urinal Urinal Weight 111.402 kg General appearance: cooperative, no distress, morbidly obese. - EENT Eyes: Reports anicteric sclerae, Reports normal apperance, ENT: Reports hard of hearing, Reports normal oropharynx, D - Neck Neck: Reports normal ROM, Denies lymphadenopathy, Denies rigidity, Denies str idor, Denies thyromegaly Carotids: bilateral: upstroke normal, upstroke delayed Thyroid: bilateral: normal size - Respiratory Respiratory: bilateral: diminished, expiratory wheeze, no rales, rhonchi - Cardiovascular Rhythm: irregularly irregular Heart sounds: normal: S1, S2 Abnormal Heart Sounds: Reports systolic murmur, Reports S3 Gallop - Gastrointestinal General gastrointestinal: Reports hepatomegaly, Reports normal bowel sounds, Reports soft, no tenderness - Integumentary acute and chronic vascular cellulitis of the lower extremity from the knee down with open ulcer right pretibial, toes are dusky blue color 3+ pedal edema bilaterally, dorsalis pedis +2. Please see nursing documentation for details. - Neurologic Neurologic: CNII-XII intact - Musculoskeletal Musculoskeletal: Reports gait not evaluated, Reports generalized weakness, - Psychiatric Psychiatric: A&O x's 1, no appropriate affect, no intact judgment & insight Results CBC & Chem 7: 08/13/19 07:12 08/13/19 07:12 Labs: Abnormal Lab Results - Last 24 Hours (Table) 08/12/19 08/12/19 08/12/19 Range/Units 13:00 13:00 13:00 WBC 12.4 H (3.8-10.6) k/uL Hgb 11.9 L (13.0-17.5) gm/dL Hct (39.0-53.0) % MCH 23.5 L (25.0-35.0) pg MCHC 28.7 L (31.0-37.0) g/dL RDW 16.7 H (11.5-15.5) % Neutrophils # 10.7 H (1.3-7.7) k/uL Lymphocytes # 0.7 L (1.0-4.8) k/uL PT 13.3 H (9.0-12.0) sec INR 1.3 H (<1.2) Sodium (137-145) mmol/L Potassium (3.5-5.1) mmol/L Carbon Dioxide (22-30) mmol/L BUN (9-20) mg/dL Creatinine (0.66-1.25) mg/dL Glucose (74-99) mg/dL POC Glucose (mg/dL) (75-99) mg/dL Total Bilirubin (0.2-1.3) mg/dL AST (17-59) U/L Troponin I 0.082 H* (0.000-0.034) ng/mL Total Protein (6.3-8.2) g/dL Albumin (3.5-5.0) g/dL Urine Protein (Negative) Ur Leukocyte Esterase (Negative) Urine RBC (0-5) /hpf Urine Bacteria (None) /hpf Hyaline Casts (0-2) /lpf Urine Mucus (None) /hpf Urine Opiates Screen (NotDetected) 08/12/19 08/12/19 08/12/19 Range/Units 14:20 17:05 17:05 WBC (3.8-10.6) k/uL Hgb (13.0-17.5) gm/dL Hct (39.0-53.0) % MCH (25.0-35.0) pg MCHC (31.0-37.0) g/dL RDW (11.5-15.5) % Neutrophils # (1.3-7.7) k/uL Lymphocytes # (1.0-4.8) k/uL PT (9.0-12.0) sec INR (<1.2) Sodium 135 L (137-145) mmol/L Potassium 5.4 H (3.5-5.1) mmol/L Carbon Dioxide 21 L (22-30) mmol/L BUN 79 H (9-20) mg/dL Creatinine 2.46 H (0.66-1.25) mg/dL Glucose (74-99) mg/dL POC Glucose (mg/dL) (75-99) mg/dL Total Bilirubin 1.7 H (0.2-1.3) mg/dL AST 74 H (17-59) U/L Troponin I (0.000-0.034) ng/mL Total Protein 5.7 L (6.3-8.2) g/dL Albumin 3.3 L (3.5-5.0) g/dL Urine Protein Trace H (Negative) Ur Leukocyte Esterase Trace H (Negative) Urine RBC 35 H (0-5) /hpf Urine Bacteria Rare H (None) /hpf Hyaline Casts 37 H (0-2) /lpf Urine Mucus Rare H (None) /hpf Urine Opiates Screen Detected H (NotDetected) 08/12/19 08/13/19 08/13/19 Range/Units 22:35 00:33 07:12 WBC (3.8-10.6) k/uL Hgb 10.1 L (13.0-17.5) gm/dL Hct 35.5 L (39.0-53.0) % MCH 23.4 L (25.0-35.0) pg MCHC 28.6 L (31.0-37.0) g/dL RDW 16.7 H (11.5-15.5) % Neutrophils # 8.0 H (1.3-7.7) k/uL Lymphocytes # 0.6 L (1.0-4.8) k/uL PT (9.0-12.0) sec INR (<1.2) Sodium (137-145) mmol/L Potassium (3.5-5.1) mmol/L Carbon Dioxide (22-30) mmol/L BUN (9-20) mg/dL Creatinine (0.66-1.25) mg/dL Glucose (74-99) mg/dL POC Glucose (mg/dL) 116 H (75-99) mg/dL Total Bilirubin (0.2-1.3) mg/dL AST (17-59) U/L Troponin I 0.079 H* (0.000-0.034) ng/mL Total Protein (6.3-8.2) g/dL Albumin (3.5-5.0) g/dL Urine Protein (Negative) Ur Leukocyte Esterase (Negative) Urine RBC (0-5) /hpf Urine Bacteria (None) /hpf Hyaline Casts (0-2) /lpf Urine Mucus (None) /hpf Urine Opiates Screen (NotDetected) 08/13/19 Range/Units 07:12 WBC (3.8-10.6) k/uL Hgb (13.0-17.5) gm/dL Hct (39.0-53.0) % MCH (25.0-35.0) pg MCHC (31.0-37.0) g/dL RDW (11.5-15.5) % Neutrophils # (1.3-7.7) k/uL Lymphocytes # (1.0-4.8) k/uL PT (9.0-12.0) sec INR (<1.2) Sodium 134 L (137-145) mmol/L Potassium (3.5-5.1) mmol/L Carbon Dioxide 21 L (22-30) mmol/L BUN 83 H (9-20) mg/dL Creatinine 2.29 H (0.66-1.25) mg/dL Glucose 115 H (74-99) mg/dL POC Glucose (mg/dL) (75-99) mg/dL Total Bilirubin (0.2-1.3) mg/dL AST 67 H (17-59) U/L Troponin I (0.000-0.034) ng/mL Total Protein 5.6 L (6.3-8.2) g/dL Albumin 3.2 L (3.5-5.0) g/dL Urine Protein (Negative) Ur Leukocyte Esterase (Negative) Urine RBC (0-5) /hpf Urine Bacteria (None) /hpf Hyaline Casts (0-2) /lpf Urine Mucus (None) /hpf Urine Opiates Screen (NotDetected) Thrombosis Risk Factor Assmnt - DVT/VTE Prophylaxis DVT/VTE Prophylaxis: Pharmacologic Prophylaxis ordered - Choose All That Apply Each Risk Factor Represents 2 Points: Age 61-74 years Thrombosis Risk Factor Assessment Total Risk Factor Score: 2 Thrombosis Risk Factor Assessment Level: Low Risk Assessment and Plan Plan: 1. Acute metabolic encephalopathy secondary to acute kidney injury lower ex tremity cellulitis and underlying dementia with agitation. Continue local wound care, antibiotics. Patient required Haldol which is on at 0.5 mg every 4 hours as needed. 2. Acute kidney injury secondary to poor oral intake. Patient is status post 2 L of IV fluids. Patient will be given a 5 mL fluid bolus. Continue to monitor electrolytes and kidney function daily. Nephrology consult. We will hold Lasix, Aldactone, lisinopril. 3. Acute on chronic lower extremity cellulitis with venous stasis ulcers. Patient is on Rocephin. Consult with Dr. Story and wound care team. Wound culture in progress. 4. Chronically elevated troponins of unclear significance. 5. History of coronary artery disease and previous myocardial infarction. Continue aspirin 325 mg daily, Lopressor 100 mg 2 times daily. 6. Chronic systolic heart failure and ischemic cardiomyopathy. Continue Lopressor. Monitor daily electrolytes, I&O's and weight. 7. Chronic atrial fibrillation. Continue Lopressor and eliquis 5 mg twice daily. 8. Hyperlipidemia. Continue Lipitor 40 mg at bedtime. 9. Hypertension, hypertensive cardiovascular disease. Continue Lopressor 100 mg 2 times daily. Hold lisinopril. 10. COPD, stable without exacerbation. Continue Singulair 10 mg daily. Prednisone 40 mg added. 11. Diabetes mellitus type 2. Continue NovoLog scale before meals and at bedtime. 12. Gout, chronic. Continue allopurinol at reduced dose of 100 mg and colchicine. 13. Benign prostatic hypertrophy. Continue Flomax 0.8 mg daily and monitor for urinary retention. 14. Recurrent depression. Continue Zoloft 50 mg daily and add Seroquel 25 mg at bedtime to help with insomnia. 15. Gastroesophageal reflux disease and GI prophylaxis. Continue omeprazole will. 16. DVT prophylaxis. Eliquis. 17. Possible obstructive sleep apnea. Recommend sleep study as an outpatient. Melatonin for insomnia. Discharge plan: Home with VNA or subacute rehab depending on son's decision. Son may have pursued guardianship since last admission. PT and OT added. Social work for discharge planning. Patient admitted to the hospital for a minimum of 2 night stay. Impression and plan of care have been directed as dictated by the signing physician. Kusum Alvarez nurse practitioner acting as scribe for signing physician.
--- NOTE | 2019-08-13 09:02 | P.CONS ---
<Kusum Alvarez - Last Filed: 08/13/19 12:31> History of Present Illness - Reason for Consult Consult date: 08/13/19 Lower extremity wounds - History of Present Illness This is a 68-year-old male patient with past medical history of hypertension with hypertensive cardiovascular disease, hyperlipidemia, ischemic cardiopathy, chronic systolic heart failure, non-ST elevated myocardial infarction, COPD, chronic atrial fibrillation and chronic edema with chronic lower extremity cellulitis and dementia. Patient's caregiver came into his home and found that he had bleeding from his lower extremities where he has chronic wounds and abrasions and had increasing confusion from his baseline. EMS was contacted and patient was brought into [facility] emergency center. He was found to be afebrile but blood pressure was 84/71, pulse ox 99% on room air. WBC 12.4, hemoglobin 11.9. Sodium 135, potassium 5.4, chloride 100, CO2 21, BUN 79 creatinine 2.46. Total bilirubin 1.7, AST 74, ALT 38, alkaline phosphatase 72. Ammonia 13, urine drug screen positive for opiates. Troponins 0.082 and 0.079, albumin 3.3. Urinalysis was protein trace, RBCs 35, hyaline casts 37. Chest x-ray showed no acute process. CAT scan of the brain showed no acute intr acranial hemorrhage or midline shift. There was diffuse age-related cerebral atrophy and chronic small vessel ischemic change. EKG was atrial fibrillation rate of 87. The patient was provided 2 L of IV fluids, started on Rocephin and Silvadene ordered for lower extremity wounds. [facility]. Vital signs have been stable. Patient has had continued confusion through the night. He [place] and patient was even somewhat combative during the night. Patient has not slept since admission. Patient gives history of having a problem for a week but then leads to business deal with property in [facility]. Patient had a recent hospitalization in May of this year which time he was treated for acute metabolic encephalopathy thought to be secondary to lower extremity cellulitis and venous stasis ulcers. His troponins were elevated at that time with no sign of acute coronary syndrome. He was seen by both neurology and psychiatry. He underwent CAT scan of the brain at that time that showed no acute findings, carotid duplex showed no significant stenosis. Echocardiogram was EF of 20 with mild mitral regurgitation, mild tricuspid regurgitation, no pulmonary hypertension. There was a plan for her son to obtain guardianship and unsure if this has been accomplished. Patient was stabilized and then discharged home with VNA. Patient was discharged home on cefuroxime for 7 day course. Wound culture was finalized with normal skin dallin and blood culture had shown no growth. Review of Systems ROS unobtainable: due to mental status Past Medical History Past Medical History: Atrial Fibrillation, Heart Failure, COPD, Dementia, GERD/Reflux, Hyperlipidemia, Hypertension, Myocardial Infarction (NV), Prostate Disorder, Renal Disease, Skin Disorder Additional Past Medical History / Comment(s): Mild dementia, cardiomyopathy, last known EF was 20-25%, afib with RVR in past, chronic lower leg edema, chronic vascular cellulitis lower extremities, lumbar DDD, back pain, previous history of GI bleed, doudenitis, diverticulum, BPH, athrities bilateral knees and back, COPD, chronic lower extremity once, history of fall Last Myocardial Infarction Date:: 07/2015 History of Any Multi-Drug Resistant Organisms: None Reported Past Surgical History: Heart Catheterization, Orthopedic Surgery Additional Past Surgical History / Comment(s): 2002 cardiac cath-no intervention, R knee arthroscopy, L knee I & D for prepatellar bursa infection - arthrotomy, PICC line insertion with eventual removal, lumbar and bilateral knee steroid injections, cataract surgery bilaterally,EGD/colonoscopy. Past Anesthesia/Blood Transfusion Reactions: No Reported Reaction Past Psychological History: Anxiety, Depression Smoking Status: Never smoker Past Alcohol Use History: None Reported Past Drug Use History: None Reported - Past Family History Father History Unknown: Yes Family Medical History: Coronary Artery Disease (CAD), Myocardial Infarction (NV) Additional Family Medical History / Comment(s): Father had CABG. He passed from a NV at the age of 62 yrs. Mother History Unknown: Yes Family Medical History: Cancer, Congestive Heart Failure (CHF), COPD, Diabetes Mellitus Additional Family Medical History / Comment(s): Mother had lung cancer. She was a smoker. She at the age of 62 yrs. Medications and Allergies Home Medications Medication Instructions Recorded Confirmed Type Metoprolol Tartrate [Lopressor] 100 mg PO BID 08/03/15 08/12/19 History Montelukast [Singulair] 10 mg PO DAILY #0 NS 08/07/15 08/13/19 Rx Omeprazole [PriLOSEC] 40 mg PO DAILY 06/19/16 08/13/19 History Sertraline HCl 50 mg PO DAILY 06/19/16 08/13/19 History Allopurinol [Zyloprim] 300 mg PO DAILY 05/25/19 08/13/19 History Apixaban [Eliquis] 5 mg PO BID 05/25/19 08/13/19 History Aspirin EC [Ecotrin] 325 mg PO DAILY 05/25/19 08/13/19 History Atorvastatin [Lipitor] 40 mg PO HS 05/25/19 08/13/19 History Colchicine 0.6 mg PO BID 05/25/19 08/13/19 History Ergocalciferol [Vitamin D2 50,000 unit PO Q7D 05/25/19 08/13/19 History (DRISDOL)] Krill Oil 1,000 mg PO DAILY 05/25/19 08/13/19 History Loperamide HCl [Imodium A-D] 2 mg PO QID PRN 05/25/19 08/13/19 History Nitroglycerin Sl Tabs [Nitrostat] 0.4 mg SUBLINGUAL Q5M PRN 05/25/19 08/13/19 History Oxybutynin Chloride [Oxybutynin 10 mg PO DAILY 05/25/19 08/13/19 History Chloride ER] Spironolactone 50 mg PO BID 05/25/19 08/13/19 History Tamsulosin [Flomax] 0.8 mg PO PC-[id number] 05/25/19 08/13/19 History Lisinopril [Zestril] 2.5 mg PO DAILY #30 tab 05/30/19 08/12/19 Rx Furosemide [Lasix] 40 mg PO DAILY 08/12/19 08/12/19 History Niacin [Niacin ER] 500 mg PO DAILY 08/13/19 08/13/19 History Allergies Allergy/AdvReac Type Severity Reaction Status Date / Time No Known Allergies Allergy Verified 08/12/19 18:28 Physical Exam Vitals: Vital Signs Temp Pulse Pulse Resp BP BP Pulse Ox 08/13/19 05:32 97.9 F 63 18 108/70 94 L 08/12/19 20:00 74 08/12/19 18:48 98.4 F 80 18 95/77 96 08/12/19 17:00 83 18 93/76 96 08/12/19 15:00 87 18 115/85 95 08/12/19 13:33 81 20 91/53 96 08/12/19 12:26 97.7 F 83 18 84/71 99 Intake and Output 08/12/19 08/13/19 08/13/19 22:59 06:59 14:59 Intake Total 200 400 Output Total 800 600 Balance -600 -200 Intake: Intake, IV Titration 400 Amount Sodium Chloride 0.9% 1, 400 000 ml @ 100 mls/hr IV . Q10H [facility] Rx#:[id number] Oral 200 Output: Urine 800 600 Other: Voiding Method Urinal Urinal Weight 111.402 kg General appearance: cooperative, no distress, morbidly obese. - EENT Eyes: Reports anicteric sclerae, Reports normal apperance, ENT: Reports hard of hearing, Reports normal oropharynx, D - Neck Neck: Reports normal ROM, Denies lymphadenopathy, Denies rigidity, Denies stridor, Denies thyromegaly Carotids: bilateral: upstroke normal, upstroke delayed Thyroid: bilateral: normal size - Respiratory Respiratory: bilateral: diminished, expiratory wheeze, no rales, rhonchi - Cardiovascular Rhythm: irregularly irregular Heart sounds: normal: S1, S2 Abnormal Heart Sounds: Reports systolic murmur, Reports S3 Gallop - Gastrointestinal General gastrointestinal: Reports hepatomegaly, Reports normal bowel sounds, Reports soft, no tenderness - Integumentary acute and chronic vascular cellulitis of the lower extremity from the knee down with open ulcer right pretibial, toes are dusky blue color 3+ pedal edema bilaterally, dorsalis pedis +2. Please see nursing documentation for details. - Neurologic Neurologic: CNII-XII intact - Musculoskeletal Musculoskeletal: Reports gait not evaluated, Reports generalized weakness, - Psychiatric Psychiatric: A&O x's 1, no appropriate affect, no intact judgment & insight Results CBC & Chem 7: 08/13/19 07:12 08/13/19 07:12 Labs: Abnormal Lab Results - Last 24 Hours (Table) 08/12/19 08/12/19 08/12/19 Range/Units 13:00 13:00 13:00 WBC 12.4 H (3.8-10.6) k/uL Hgb 11.9 L (13.0-17.5) gm/dL Hct (39.0-53.0) % MCH 23.5 L (25.0-35.0) pg MCHC 28.7 L (31.0-37.0) g/dL RDW 16.7 H (11.5-15.5) % Neutrophils # 10.7 H (1.3-7.7) k/uL Lymphocytes # 0.7 L (1.0-4.8) k/uL PT 13.3 H (9.0-12.0) sec INR 1.3 H (<1.2) Sodium (137-145) mmol/L Potassium (3.5-5.1) mmol/L Carbon Dioxide (22-30) mmol/L BUN (9-20) mg/dL Creatinine (0.66-1.25) mg/dL Glucose (74-99) mg/dL POC Glucose (mg/dL) (75-99) mg/dL Total Bilirubin (0.2-1.3) mg/dL AST (17-59) U/L Troponin I 0.082 H* (0.000-0.034) ng/mL Total Protein (6.3-8.2) g/dL Albumin (3.5-5.0) g/dL Urine Protein (Negative) Ur Leukocyte Esterase (Negative) Urine RBC (0-5) /hpf Urine Bacteria (None) /hpf Hyaline Casts (0-2) /lpf Urine Mucus (None) /hpf Urine Opiates Screen (NotDetected) 08/12/19 08/12/19 08/12/19 Range/Units 14:20 17:05 17:05 WBC (3.8-10.6) k/uL Hgb (13.0-17.5) gm/dL Hct (39.0-53.0) % MCH (25.0-35.0) pg MCHC (31.0-37.0) g/dL RDW (11.5-15.5) % Neutrophils # (1.3-7.7) k/uL Lymphocytes # (1.0-4.8) k/uL PT (9.0-12.0) sec INR (<1.2) Sodium 135 L (137-145) mmol/L Potassium 5.4 H (3.5-5.1) mmol/L Carbon Dioxide 21 L (22-30) mmol/L BUN 79 H (9-20) mg/dL Creatinine 2.46 H (0.66-1.25) mg/dL Glucose (74-99) mg/dL POC Glucose (mg/dL) (75-99) mg/dL Total Bilirubin 1.7 H (0.2-1.3) mg/dL AST 74 H (17-59) U/L Troponin I (0.000-0.034) ng/mL Total Protein 5.7 L (6.3-8.2) g/dL Albumin 3.3 L (3.5-5.0) g/dL Urine Protein Trace H (Negative) Ur Leukocyte Esterase Trace H (Negative) Urine RBC 35 H (0-5) /hpf Urine Bacteria Rare H (None) /hpf Hyaline Casts 37 H (0-2) /lpf Urine Mucus Rare H (None) /hpf Urine Opiates Screen Detected H (NotDetected) 08/12/19 08/13/19 08/13/19 Range/Units 22:35 00:33 07:12 WBC (3.8-10.6) k/uL Hgb 10.1 L (13.0-17.5) gm/dL Hct 35.5 L (39.0-53.0) % MCH 23.4 L (25.0-35.0) pg MCHC 28.6 L (31.0-37.0) g/dL RDW 16.7 H (11.5-15.5) % Neutrophils # 8.0 H (1.3-7.7) k/uL Lymphocytes # 0.6 L (1.0-4.8) k/uL PT (9.0-12.0) sec INR (<1.2) Sodium (137-145) mmol/L Potassium (3.5-5.1) mmol/L Carbon Dioxide (22-30) mmol/L BUN (9-20) mg/dL Creatinine (0.66-1.25) mg/dL Glucose (74-99) mg/dL POC Glucose (mg/dL) 116 H (75-99) mg/dL Total Bilirubin (0.2-1.3) mg/dL AST (17-59) U/L Troponin I 0.079 H* (0.000-0.034) ng/mL Total Protein (6.3-8.2) g/dL Albumin (3.5-5.0) g/dL Urine Protein (Negative) Ur Leukocyte Esterase (Negative) Urine RBC (0-5) /hpf Urine Bacteria (None) /hpf Hyaline Casts (0-2) /lpf Urine Mucus (None) /hpf Urine Opiates Screen (NotDetected) 08/13/19 08/13/19 Range/Units 07:12 08:44 WBC (3.8-10.6) k/uL Hgb (13.0-17.5) gm/dL Hct (39.0-53.0) % MCH (25.0-35.0) pg MCHC (31.0-37.0) g/dL RDW (11.5-15.5) % Neutrophils # (1.3-7.7) k/uL Lymphocytes # (1.0-4.8) k/uL PT (9.0-12.0) sec INR (<1.2) Sodium 134 L (137-145) mmol/L Potassium (3.5-5.1) mmol/L Carbon Dioxide 21 L (22-30) mmol/L BUN 83 H (9-20) mg/dL Creatinine 2.29 H (0.66-1.25) mg/dL Glucose 115 H (74-99) mg/dL POC Glucose (mg/dL) 120 H (75-99) mg/dL Total Bilirubin (0.2-1.3) mg/dL AST 67 H (17-59) U/L Troponin I (0.000-0.034) ng/mL Total Protein 5.6 L (6.3-8.2) g/dL Albumin 3.2 L (3.5-5.0) g/dL Urine Protein (Negative) Ur Leukocyte Esterase (Negative) Urine RBC (0-5) /hpf Urine Bacteria (None) /hpf Hyaline Casts (0-2) /lpf Urine Mucus (None) /hpf Urine Opiates Screen (NotDetected) Assessment and Plan Plan: This is a 68-year-old male who presented to the hospital with acute metabolic encephalopathy, acute kidney failure, acute on chronic lower extremity cellulitis. Patient is currently on Rocephin which will be continued. Local wound care to be addressed. Wound care consult in place. Wound culture to be obtained, blood culture in progress. Further recommendations as patient progresses. The above dictated assessment and findings were discussed with Dr. Story. The impression and plan of care have been directed as dictated. Kusum Alvarez nurse practitioner acting as scribe for Dr. Story. <Nas Story - Last Filed: 08/13/19 16:28> Physical Exam Vitals: Vital Signs Temp Pulse Pulse Resp BP BP Pulse Ox 08/13/19 15:07 97.5 F L 91 15 76/58 92 L 08/13/19 07:00 97.8 F 104/68 08/13/19 05:32 97.9 F 63 18 108/70 94 L 08/12/19 20:00 74 08/12/19 18:48 98.4 F 80 18 95/77 96 08/12/19 17:00 83 18 93/76 96 Intake and Output 08/13/19 08/13/19 08/13/19 06:59 14:59 22:59 Intake Total 400 Output Total 600 200 Balance -200 -200 Intake: Intake, IV Titration 400 Amount Sodium Chloride 0.9% 1, 400 000 ml @ 100 mls/hr IV . Q10H [facility] Rx#:[id number] Output: Urine 600 200 Other: Voiding Method Urinal Results CBC & Chem 7: 08/13/19 07:12 08/13/19 07:12 Labs: Abnormal Lab Results - Last 24 Hours (Table) 08/12/19 08/12/19 08/12/19 Range/Units 17:05 17:05 22:35 Hgb (13.0-17.5) gm/dL Hct (39.0-53.0) % MCH (25.0-35.0) pg MCHC (31.0-37.0) g/dL RDW (11.5-15.5) % Neutrophils # (1.3-7.7) k/uL Lymphocytes # (1.0-4.8) k/uL Sodium (137-145) mmol/L Carbon Dioxide (22-30) mmol/L BUN (9-20) mg/dL Creatinine (0.66-1.25) mg/dL Glucose (74-99) mg/dL POC Glucose (mg/dL) 116 H (75-99) mg/dL AST (17-59) U/L Troponin I (0.000-0.034) ng/mL Total Protein (6.3-8.2) g/dL Albumin (3.5-5.0) g/dL Urine Protein Trace H (Negative) Ur Leukocyte Esterase Trace H (Negative) Urine RBC 35 H (0-5) /hpf Urine Bacteria Rare H (None) /hpf Hyaline Casts 37 H (0-2) /lpf Urine Mucus Rare H (None) /hpf Urine Opiates Screen Detected H (NotDetected) 08/13/19 08/13/19 08/13/19 Range/Units 00:33 07:12 07:12 Hgb 10.1 L (13.0-17.5) gm/dL Hct 35.5 L (39.0-53.0) % MCH 23.4 L (25.0-35.0) pg MCHC 28.6 L (31.0-37.0) g/dL RDW 16.7 H (11.5-15.5) % Neutrophils # 8.0 H (1.3-7.7) k/uL Lymphocytes # 0.6 L (1.0-4.8) k/uL Sodium 134 L (137-145) mmol/L Carbon Dioxide 21 L (22-30) mmol/L BUN 83 H (9-20) mg/dL Creatinine 2.29 H (0.66-1.25) mg/dL Glucose 115 H (74-99) mg/dL POC Glucose (mg/dL) (75-99) mg/dL AST 67 H (17-59) U/L Troponin I 0.079 H* (0.000-0.034) ng/mL Total Protein 5.6 L (6.3-8.2) g/dL Albumin 3.2 L (3.5-5.0) g/dL Urine Protein (Negative) Ur Leukocyte Esterase (Negative) Urine RBC (0-5) /hpf Urine Bacteria (None) /hpf Hyaline Casts (0-2) /lpf Urine Mucus (None) /hpf Urine Opiates Screen (NotDetected) 08/13/19 08/13/19 Range/Units 08:44 11:43 Hgb (13.0-17.5) gm/dL Hct (39.0-53.0) % MCH (25.0-35.0) pg MCHC (31.0-37.0) g/dL RDW (11.5-15.5) % Neutrophils # (1.3-7.7) k/uL Lymphocytes # (1.0-4.8) k/uL Sodium (137-145) mmol/L Carbon Dioxide (22-30) mmol/L BUN (9-20) mg/dL Creatinine (0.66-1.25) mg/dL Glucose (74-99) mg/dL POC Glucose (mg/dL) 120 H 119 H (75-99) mg/dL AST (17-59) U/L Troponin I (0.000-0.034) ng/mL Total Protein (6.3-8.2) g/dL Albumin (3.5-5.0) g/dL Urine Protein (Negative) Ur Leukocyte Esterase (Negative) Urine RBC (0-5) /hpf Urine Bacteria (None) /hpf Hyaline Casts (0-2) /lpf Urine Mucus (None) /hpf Urine Opiates Screen (NotDetected) Assessment and Plan Plan: Patient was seen and examined today, MACHINE TECHNICIAN note was reviewed and agreed with the finding Patient did have bilateral lower extremity venous stasis ulcer with secondary cellulitis, patient did have multiple superficial wound with no slough tissue and some surrounding redness, we will recommend local wound care with the cesar follow by moist dressing, and light Praveen wrap for compression antibiotic will continue in the form of Rocephin 2 g daily and antibiotic will be adjusted further on the basis of culture report and monitor his clinical course closely during this hospital stay Time with Patient: Greater than 30
[2019-08-13] MEDS: predniSONE 20 MG TAB PO SCH (10:06)
[2019-08-13 11:45] LABS: Glucose,Whole Blood 119 mg/dL (75-99)
--- NOTE | 2019-08-13 11:45 | P.CONS ---
History of Present Illness - Reason for Consult Consult date: 08/13/19 nonhealing ulcerations to bilateral lower extremities - History of Present Illness this is a 68-year-old gentleman who is being seen by the wound care center on [address] for nonhealing ulcerations to bilateral lower extremities. Patient states that the ulceration started approximately 4-6 weeks ago. He was using a cream that the pharmacist recommended at home. patient was found to have bilateral cellulitis and was sent from home via EMS to the hospital for evaluation. Patient has medical history includes COPD, mild dementia, A. fib and chronic lower extremity edema. Review of Systems Review Of Systems: Constitutional: No fever, no chills, no night sweats. No weight change. No weakness, fatigue or lethargy. No daytime sleepiness. Integumentary:reports wounds, reports edema, no lesions. No rash or pruritus. No unusual bruising. No change in hair or nails. Past Medical History Past Medical History: Atrial Fibrillation, Heart Failure, COPD, Dementia, GERD/Reflux, Hyperlipidemia, Hypertension, Myocardial Infarction (NV), Prostate Disorder, Renal Disease, Skin Disorder Additional Past Medical History / Comment(s): Mild dementia, cardiomyopathy, last known EF was 20-25%, afib with RVR in past, chronic lower leg edema, chronic vascular cellulitis lower extremities, lumbar DDD, back pain, previous history of GI bleed, doudenitis, diverticulum, BPH, athrities bilateral knees and back, COPD, chronic lower extremity once, history of fall Last Myocardial Infarction Date:: 07/2015 History of Any Multi-Drug Resistant Organisms: None Reported Past Surgical History: Heart Catheterization, Orthopedic Surgery Additional Past Surgical History / Comment(s): 2002 cardiac cath-no intervention, R knee arthroscopy, L knee I & D for prepatellar bursa infection - arthrotomy, PICC line insertion with eventual removal, lumbar and bilateral knee steroid injections, cataract surgery bilaterally,EGD/colonoscopy. Past Anesthesia/Blood Transfusion Reactions: No Reported Reaction Past Psychological History: Anxiety, Depression Smoking Status: Never smoker Past Alcohol Use History: None Reported Past Drug Use History: None Reported - Past Family History Father History Unknown: Yes Family Medical History: Coronary Artery Disease (CAD), Myocardial Infarction (NV) Additional Family Medical History / Comment(s): Father had CABG. He passed from a NV at the age of 62 yrs. Mother History Unknown: Yes Family Medical History: Cancer, Congestive Heart Failure (CHF), COPD, Diabetes Mellitus Additional Family Medical History / Comment(s): Mother had lung cancer. She was a smoker. She at the age of 62 yrs. Medications and Allergies Home Medications Medication Instructions Recorded Confirmed Type Metoprolol Tartrate [Lopressor] 100 mg PO BID 08/03/15 08/12/19 History Montelukast [Singulair] 10 mg PO DAILY #0 NS 08/07/15 08/13/19 Rx Omeprazole [PriLOSEC] 40 mg PO DAILY 06/19/16 08/13/19 History Sertraline HCl 50 mg PO DAILY 06/19/16 08/13/19 History Allopurinol [Zyloprim] 300 mg PO DAILY 05/25/19 08/13/19 History Apixaban [Eliquis] 5 mg PO BID 05/25/19 08/13/19 History Aspirin EC [Ecotrin] 325 mg PO DAILY 05/25/19 08/13/19 History Atorvastatin [Lipitor] 40 mg PO HS 05/25/19 08/13/19 History Colchicine 0.6 mg PO BID 05/25/19 08/13/19 History Ergocalciferol [Vitamin D2 50,000 unit PO Q7D 05/25/19 08/13/19 History (DRISDOL)] Krill Oil 1,000 mg PO DAILY 05/25/19 08/13/19 History Loperamide HCl [Imodium A-D] 2 mg PO QID PRN 05/25/19 08/13/19 History Nitroglycerin Sl Tabs [Nitrostat] 0.4 mg SUBLINGUAL Q5M PRN 05/25/19 08/13/19 History Oxybutynin Chloride [Oxybutynin 10 mg PO DAILY 05/25/19 08/13/19 History Chloride ER] Spironolactone 50 mg PO BID 05/25/19 08/13/19 History Tamsulosin [Flomax] 0.8 mg PO PC-BRKFST 05/25/19 08/13/19 History Lisinopril [Zestril] 2.5 mg PO DAILY #30 tab 05/30/19 08/12/19 Rx Furosemide [Lasix] 40 mg PO DAILY 08/12/19 08/12/19 History Niacin [Niacin ER] 500 mg PO DAILY 08/13/19 08/13/19 History Allergies Allergy/AdvReac Type Severity Reaction Status Date / Time No Known Allergies Allergy Verified 08/12/19 18:28 Physical Exam Vitals: Vital Signs Temp Pulse Pulse Resp BP BP Pulse Ox 08/13/19 05:32 97.9 F 63 18 108/70 94 L 08/12/19 20:00 74 08/12/19 18:48 98.4 F 80 18 95/77 96 08/12/19 17:00 83 18 93/76 96 08/12/19 15:00 87 18 115/85 95 08/12/19 13:33 81 20 91/53 96 08/12/19 12:26 97.7 F 83 18 84/71 99 Intake and Output 08/12/19 08/13/19 08/13/19 22:59 06:59 14:59 Intake Total 200 400 Output Total 800 600 200 Balance -600 -200 -200 Intake: Intake, IV Titration 400 Amount Sodium Chloride 0.9% 1, 400 000 ml @ 100 mls/hr IV . Q10H [facility] Rx#:[id number] Oral 200 Output: Urine 800 600 200 Other: Voiding Method Urinal Urinal Weight 111.402 kg left lower extremity anterior and medial aspect has ulcerations approximately 1 x 5 I 1 x 0.2 cm, 2 x 2 x 0.2 cm, wound bed has minimal granulation, adherent Slough and exudate, no tunneling or undermining pain noted, wound edge is smooth. Right lower extremity has multiple ulcerations with fatty layer exposure exudate and minimal granulation noted within wound bed. The ulcerations are located on the anterior posterior and lateral aspect of the leg. Patient has serosanguineous drainage from the wound. At this time Silvadene is in place. Results CBC & Chem 7: 08/13/19 07:12 08/13/19 07:12 Labs: Abnormal Lab Results - Last 24 Hours (Table) 08/12/19 08/12/19 08/12/19 Range/Units 13:00 13:00 13:00 WBC 12.4 H (3.8-10.6) k/uL Hgb 11.9 L (13.0-17.5) gm/dL Hct (39.0-53.0) % MCH 23.5 L (25.0-35.0) pg MCHC 28.7 L (31.0-37.0) g/dL RDW 16.7 H (11.5-15.5) % Neutrophils # 10.7 H (1.3-7.7) k/uL Lymphocytes # 0.7 L (1.0-4.8) k/uL PT 13.3 H (9.0-12.0) sec INR 1.3 H (<1.2) Sodium (137-145) mmol/L Potassium (3.5-5.1) mmol/L Carbon Dioxide (22-30) mmol/L BUN (9-20) mg/dL Creatinine (0.66-1.25) mg/dL Glucose (74-99) mg/dL POC Glucose (mg/dL) (75-99) mg/dL Total Bilirubin (0.2-1.3) mg/dL AST (17-59) U/L Troponin I 0.082 H* (0.000-0.034) ng/mL Total Protein (6.3-8.2) g/dL Albumin (3.5-5.0) g/dL Urine Protein (Negative) Ur Leukocyte Esterase (Negative) Urine RBC (0-5) /hpf Urine Bacteria (None) /hpf Hyaline Casts (0-2) /lpf Urine Mucus (None) /hpf Urine Opiates Screen (NotDetected) 08/12/19 08/12/19 08/12/19 Range/Units 14:20 17:05 17:05 WBC (3.8-10.6) k/uL Hgb (13.0-17.5) gm/dL Hct (39.0-53.0) % MCH (25.0-35.0) pg MCHC (31.0-37.0) g/dL RDW (11.5-15.5) % Neutrophils # (1.3-7.7) k/uL Lymphocytes # (1.0-4.8) k/uL PT (9.0-12.0) sec INR (<1.2) Sodium 135 L (137-145) mmol/L Potassium 5.4 H (3.5-5.1) mmol/L Carbon Dioxide 21 L (22-30) mmol/L BUN 79 H (9-20) mg/dL Creatinine 2.46 H (0.66-1.25) mg/dL Glucose (74-99) mg/dL POC Glucose (mg/dL) (75-99) mg/dL Total Bilirubin 1.7 H (0.2-1.3) mg/dL AST 74 H (17-59) U/L Troponin I (0.000-0.034) ng/mL Total Protein 5.7 L (6.3-8.2) g/dL Albumin 3.3 L (3.5-5.0) g/dL Urine Protein Trace H (Negative) Ur Leukocyte Esterase Trace H (Negative) Urine RBC 35 H (0-5) /hpf Urine Bacteria Rare H (None) /hpf Hyaline Casts 37 H (0-2) /lpf Urine Mucus Rare H (None) /hpf Urine Opiates Screen Detected H (NotDetected) 08/12/19 08/13/19 08/13/19 Range/Units 22:35 00:33 07:12 WBC (3.8-10.6) k/uL Hgb 10.1 L (13.0-17.5) gm/dL Hct 35.5 L (39.0-53.0) % MCH 23.4 L (25.0-35.0) pg MCHC 28.6 L (31.0-37.0) g/dL RDW 16.7 H (11.5-15.5) % Neutrophils # 8.0 H (1.3-7.7) k/uL Lymphocytes # 0.6 L (1.0-4.8) k/uL PT (9.0-12.0) sec INR (<1.2) Sodium (137-145) mmol/L Potassium (3.5-5.1) mmol/L Carbon Dioxide (22-30) mmol/L BUN (9-20) mg/dL Creatinine (0.66-1.25) mg/dL Glucose (74-99) mg/dL POC Glucose (mg/dL) 116 H (75-99) mg/dL Total Bilirubin (0.2-1.3) mg/dL AST (17-59) U/L Troponin I 0.079 H* (0.000-0.034) ng/mL Total Protein (6.3-8.2) g/dL Albumin (3.5-5.0) g/dL Urine Protein (Negative) Ur Leukocyte Esterase (Negative) Urine RBC (0-5) /hpf Urine Bacteria (None) /hpf Hyaline Casts (0-2) /lpf Urine Mucus (None) /hpf Urine Opiates Screen (NotDetected) 08/13/19 08/13/19 Range/Units 07:12 08:44 WBC (3.8-10.6) k/uL Hgb (13.0-17.5) gm/dL Hct (39.0-53.0) % MCH (25.0-35.0) pg MCHC (31.0-37.0) g/dL RDW (11.5-15.5) % Neutrophils # (1.3-7.7) k/uL Lymphocytes # (1.0-4.8) k/uL PT (9.0-12.0) sec INR (<1.2) Sodium 134 L (137-145) mmol/L Potassium (3.5-5.1) mmol/L Carbon Dioxide 21 L (22-30) mmol/L BUN 83 H (9-20) mg/dL Creatinine 2.29 H (0.66-1.25) mg/dL Glucose 115 H (74-99) mg/dL POC Glucose (mg/dL) 120 H (75-99) mg/dL Total Bilirubin (0.2-1.3) mg/dL AST 67 H (17-59) U/L Troponin I (0.000-0.034) ng/mL Total Protein 5.6 L (6.3-8.2) g/dL Albumin 3.2 L (3.5-5.0) g/dL Urine Protein (Negative) Ur Leukocyte Esterase (Negative) Urine RBC (0-5) /hpf Urine Bacteria (None) /hpf Hyaline Casts (0-2) /lpf Urine Mucus (None) /hpf Urine Opiates Screen (NotDetected) Assessment and Plan (1) Venous hypertension, chronic, with ulcer and inflammation Current Visit: Yes Status: Acute Code(s): I87.339 - CHRONIC VENOUS HTN W ULCER AND INFLAM OF UNSP LOW EXTRM; L97.909 - NON-PRS CHRONIC ULC UNSP PRT OF UNSP LOW LEG W UNSP SEVERITY SNOMED Code(s): 307412504 (2) Non-healing ulcer of multiple sites of lower extremity with fat layer exposed Current Visit: Yes Status: Acute Code(s): L97.902 - NON-PRS [facility] UNSP PRT OF UNSP LOW LEG W FAT LAYER EXPOSED SNOMED Code(s): 02905019 Plan: cleanse wound with normal saline, apply honey gel, saline moistened gauze, dry gauze, rolled gauze, Lasix wrap secure with tape.change dressing Friday Instructed patient the importance of keeping legs elevated. elevate legs at least 30 minutes 3 times a day. Discussed with patient the importance of following up with outpatient wound care. Patient is agreeable to continue in the wound care center upon discharge. Thank you for the consultation, any questions please contact the wound care center DNP note has been reviewed and discussed with Dr. Sepulveda and the impression and plan of care has been directed as dictated.
[2019-08-13] MEDS ORDERED: NITROGLYCERIN SL TABS 0.4 MG TAB SUBLINGUAL PRN (12:24)
[2019-08-13] MEDS ORDERED: MIDODRINE 5 MG TAB PO PRN (12:29)
--- NOTE | 2019-08-13 12:29 | US ---
EXAMINATION TYPE: US kidneys/renal and bladder DATE OF EXAM: 08/13/2019 COMPARISON: None CLINICAL HISTORY: 68-year-old male EMA. TECHNIQUE: Multiple sonographic images of the kidneys and bladder are obtained. FINDINGS: EXAM MEASUREMENTS: Right Kidney: 11.8 x 6.1 x 6.1 cm Left Kidney: 11.5 x 5.7 x 5.4 cm No hydronephrosis on either side. Left kidney imaged first due to patient positioning. Right Kidney: upper pole cyst measures 2.2 x 2.0 x 2.5 cm. Left Kidney: upper pole cyst measures 1.5 x 1.5 x 1.8 cm. Bladder: not seen IMPRESSION: 1. No hydronephrosis. 2. A benign renal cyst on either side measuring up to 2.5 cm. 3. Unable to adequately visualize the bladder for assessment.
--- NOTE | 2019-08-13 12:32 | P.NPCON ---
History of Present Illness - Reason for Consult acute renal failure - History of Present Illness Reason for consultation: Acute kidney injury History of present illness: Patient is a 68-year-old male seen in renal consultation for acute kidney injury. Patient's creatinine as of May 2019 in the range of 1-1.8.. It was 2.46 this admission and is 2.29 today. Patient presented to the hospital by the EMS due to lower extremity ulcers. It appears that the patient lives alone. Patient is not a reliable historian. Hemoglobin 10.1 today. Patient has history of severe cardiomyopathy with ejection fraction of less than 20%. Patient's blood pressure on admission was noted to be quite low in the systolic 80s. He did receive 2 L normal saline bolus and another 500 mL bolus this morning. He is not on any maintenance fluids. He's been drinking water but his oral intake is quite poor. He does not have a Moran catheter. He has been voiding. Urine output about 200 mL since 7 AM. Denies chest pain. No significant edema. I don't see any nonsteroidals and his home medications. Diuretics are held. Vital signs are stable. General: The patient appeared well nourished and normally developed. HEENT: Head exam is unremarkable. Neck is without jugular venous distension. LUNGS: Lungs are clear to auscultation and percussion. Breath sounds decreased. HEART: Rate and Rhythm are regular. First and second heart sounds normal. No murmurs, rubs or gallops. ABDOMEN: Abdominal exam reveals normal bowel sounds. Non-tender and non- distended. No evidence of peritonitis. EXTREMITITES: No clubbing, cyanosis, or edema. No drainage noted. Past Medical History Past Medical History: Atrial Fibrillation, Heart Failure, COPD, Dementia, GERD/Reflux, Hyperlipidemia, Hypertension, Myocardial Infarction (ME), Prostate Disorder, Renal Disease, Skin Disorder Additional Past Medical History / Comment(s): Mild dementia, cardiomyopathy, la st known EF was 20-25%, afib with RVR in past, chronic lower leg edema, chronic vascular cellulitis lower extremities, lumbar DDD, back pain, previous history of GI bleed, doudenitis, diverticulum, BPH, athrities bilateral knees and back, COPD, chronic lower extremity once, history of fall Last Myocardial Infarction Date:: 07/2015 History of Any Multi-Drug Resistant Organisms: None Reported Past Surgical History: Heart Catheterization, Orthopedic Surgery Additional Past Surgical History / Comment(s): 2002 cardiac cath-no intervention, R knee arthroscopy, L knee I & D for prepatellar bursa infection - arthrotomy, PICC line insertion with eventual removal, lumbar and bilateral knee steroid injections, cataract surgery bilaterally,EGD/colonoscopy. Past Anesthesia/Blood Transfusion Reactions: No Reported Reaction Past Psychological History: Anxiety, Depression Smoking Status: Never smoker Past Alcohol Use History: None Reported Past Drug Use History: None Reported - Past Family History Father History Unknown: Yes Family Medical History: Coronary Artery Disease (CAD), Myocardial Infarction (ME) Additional Family Medical History / Comment(s): Father had CABG. He passed from a ME at the age of 62 yrs. Mother History Unknown: Yes Family Medical History: Cancer, Congestive Heart Failure (CHF), COPD, Diabetes Mellitus Additional Family Medical History / Comment(s): Mother had lung cancer. She was a smoker. She at the age of 62 yrs. Medications and Allergies Home Medications Medication Instructions Recorded Confirmed Type Metoprolol Tartrate [Lopressor] 100 mg PO BID 08/03/15 08/12/19 History Montelukast [Singulair] 10 mg PO DAILY #0 NS 08/07/15 08/13/19 Rx Omeprazole [PriLOSEC] 40 mg PO DAILY 06/19/16 08/13/19 History Sertraline HCl 50 mg PO DAILY 06/19/16 08/13/19 History Allopurinol [Zyloprim] 300 mg PO DAILY 05/25/19 08/13/19 History Apixaban [Eliquis] 5 mg PO BID 05/25/19 08/13/19 History Aspirin EC [Ecotrin] 325 mg PO DAILY 05/25/19 08/13/19 History Atorvastatin [Lipitor] 40 mg PO HS 05/25/19 08/13/19 History Colchicine 0.6 mg PO BID 05/25/19 08/13/19 History Ergocalciferol [Vitamin D2 50,000 unit PO Q7D 05/25/19 08/13/19 History (DRISDOL)] Krill Oil 1,000 mg PO DAILY 05/25/19 08/13/19 History Loperamide HCl [Imodium A-D] 2 mg PO QID PRN 05/25/19 08/13/19 History Nitroglycerin Sl Tabs [Nitrostat] 0.4 mg SUBLINGUAL Q5M PRN 05/25/19 08/13/19 History Oxybutynin Chloride [Oxybutynin 10 mg PO DAILY 05/25/19 08/13/19 History Chloride ER] Spironolactone 50 mg PO BID 05/25/19 08/13/19 History Tamsulosin [Flomax] 0.8 mg PO PC-BRKFST 05/25/19 08/13/19 History Lisinopril [Zestril] 2.5 mg PO DAILY #30 tab 05/30/19 08/12/19 Rx Furosemide [Lasix] 40 mg PO DAILY 08/12/19 08/12/19 History Niacin [Niacin ER] 500 mg PO DAILY 08/13/19 08/13/19 History Allergies Allergy/AdvReac Type Severity Reaction Status Date / Time No Known Allergies Allergy Verified 08/12/19 18:28 Physical Exam Vitals: Vital Signs Temp Pulse Pulse Resp BP BP Pulse Ox 08/13/19 07:00 97.8 F 104/68 08/13/19 05:32 97.9 F 63 18 108/70 94 L 08/12/19 20:00 74 08/12/19 18:48 98.4 F 80 18 95/77 96 08/12/19 17:00 83 18 93/76 96 08/12/19 15:00 87 18 115/85 95 08/12/19 13:33 81 20 91/53 96 08/12/19 12:26 97.7 F 83 18 84/71 99 Intake and Output 08/12/19 08/13/19 08/13/19 22:59 06:59 14:59 Intake Total 200 400 Output Total 800 600 200 Balance -600 -200 -200 Intake: Intake, IV Titration 400 Amount Sodium Chloride 0.9% 1, 400 000 ml @ 100 mls/hr IV . Q10H [facility] Rx#:[id number] Oral 200 Output: Urine 800 600 200 Other: Voiding Method Urinal Urinal Weight 111.402 kg Results - Lab Results Most recent lab results Calcium 8.7 mg/dL (8.4-10.2) 08/13/19 07:12 08/13/19 07:12 08/13/19 07:12 Assessment and Plan Plan: Assessment: 1. Acute kidney injury secondary to ATN secondary to hypotension. Creatinine 2.29 today. Trace proteinuria on UA. Rule out urinary retention. 2. Rule out chronic kidney disease. Creatinine in May 2019 was in the range of 1-1.8. 3. Chronic systolic CHF with ejection fraction of less than 20%. Currently compensated. 4. Lower extremity ulcers. 5. Mild metabolic acidosis secondary to acute kidney injury. 6. Hypotension due to underlying cardiomyopathy and hypovolemia. Plan: Hemodynamically currently stable. Can repeat to 250 mL normal saline bolus if systolic blood pressure drops below 90. I will also add midodrine if needed for systolic blood pressure less than 90. Avoid aggressive IV hydration due to underlying cardiomyopathy. Follow-up renal ultrasound. Avoid nephrotoxins. Thank you for the consultation. I will continue to follow the patient with you during his hospital stay.
[2019-08-13 16:44] LABS: Glucose,Whole Blood 158 mg/dL (75-99)
[2019-08-13] MEDS ORDERED: SODIUM CHLORIDE 0.9% 250 ML IV SCH (20:30)
[2019-08-13] MEDS ORDERED: MORPHINE SULFATE 2 MG/ML SYRINGE IVP PRN (20:32)
[2019-08-13 20:50] LABS: Glucose,Whole Blood 143 mg/dL (75-99)
[2019-08-13] MEDS ORDERED: ATORVASTATIN 40 MG TAB PO SCH (21:00)
[2019-08-13 21:14] LABS: Glucose,Whole Blood 130 mg/dL (75-99)
[2019-08-13] MEDS: ISOSORBIDE MONONITRATE ER 15 MG TAB PO SCH (22:21)
[2019-08-13] MEDS: QUEtiapine 25 MG TAB PO SCH (22:22)
[2019-08-13] MEDS: COLCHICINE 0.6 MG EACH PO SCH (22:22)
[2019-08-14] MEDS: SODIUM CHLORIDE 0.9% 1,000 ML IV SCH (01:52)
[2019-08-14 05:24] LABS: Anisocytosis Slight; Basophils % (A) 0 %; Eosinophils % (A) 0 %; HCT 35.1 % (39.0-53.0); Hypochromasia Marked; Lymphocytes # (A) 0.5 k/uL (1.0-4.8); Lymphocytes % (A) 10 %; MCH 22.8 pg (25.0-35.0); MCHC 28.6 g/dL (31.0-37.0); MCV 79.7 fL (80.0-100.0); Mean Platelet Volume 8.1; Microcytosis Slight; Monocytes # (A) 0.5 k/uL (0-1.0); Monocytes % (A) 9 %; Neutrophils # (A) 4.1 k/uL (1.3-7.7); Neutrophils % (A) 77 %; Platelet Count 180 k/uL (150-450); Poikilocytosis Slight; RDW 17.1 % (11.5-15.5); WBC 5.2 k/uL (3.8-10.6)
[2019-08-14 05:37] LABS: Calcium 8.8 mg/dL (8.4-10.2); Potassium 5.2 mmol/L (3.5-5.1)
[2019-08-14 07:13] LABS: Glucose,Whole Blood 112 mg/dL (75-99)
[2019-08-14] MEDS ORDERED: TAMSULOSIN 0.4 MG CAP.ER.24H PO SCH (08:30)
[2019-08-14] MEDS: ISOSORBIDE MONONITRATE ER 15 MG TAB PO SCH (08:33)
[2019-08-14] MEDS: INSULIN ASPART (NovoLOG) 100 UNIT/ML VIAL SQ SCH ×4 (08:33→20:52)
[2019-08-14] MEDS: PANTOPRAZOLE 40 MG TABLET PO SCH (09:00)
[2019-08-14] MEDS: ALLOPURINOL 100 MG TAB PO SCH (09:00)
[2019-08-14] MEDS: MONTELUKAST 10 MG TAB PO SCH (09:00)
[2019-08-14] MEDS: predniSONE 20 MG TAB PO SCH (09:00)
[2019-08-14] MEDS: ASPIRIN 325 MG TAB PO SCH (09:00)
[2019-08-14] MEDS: APIXABAN 5 MG TAB PO SCH ×2 (09:00→20:57)
[2019-08-14] MEDS: COLCHICINE 0.6 MG EACH PO SCH ×2 (09:00→20:57)
[2019-08-14] MEDS: METOPROLOL TARTRATE 50 MG TAB PO SCH (09:01)
[2019-08-14] MEDS: ACETAMINOPHEN TAB 325 MG TAB PO PRN ×3 (09:04→19:01)
[2019-08-14] MEDS: SERTRALINE 50 MG TAB PO SCH (09:36)
--- NOTE | 2019-08-14 10:22 | P.PN ---
Subjective Progress Note Date: 08/14/19 This is a 68-year-old male patient of Dr. Pal with past medical history of hypertension with hypertensive cardiovascular disease, hyperlipidemia, ischemic cardiopathy, chronic systolic heart failure, non-ST elevated myocardial infarction, COPD, chronic atrial fibrillation and chronic edema with chronic lower extremity cellulitis and dementia. Patient's caregiver came into his home and found that he had bleeding from his lower extremities where he has chronic wounds and abrasions and had increasing confusion from his baseline. EMS was contacted and patient was brought into [facility] emergency center. He was found to be afebrile but blood pressure was 84/71, pulse ox 99% on room air. WBC 12.4, hemoglobin 11.9. Sodium 135, potassium 5.4, chloride 100, CO2 21, BUN 79 creatinine 2.46. Total bilirubin 1.7, AST 74, ALT 38, alkaline phosphatase 72. Ammonia 13, urine drug screen positive for opiates. Troponins 0.082 and 0.079, albumin 3.3. Urinalysis was protein trace, RBCs 35, hyaline casts 37. Chest x-ray showed no acute process. CAT scan of the brain showed no acute intracranial hemorrhage or midline shift. There was diffuse age-related cerebral atrophy and chronic small vessel ischemic change. EKG was atrial fibrillation rate of 87. The patient was provided 2 L of IV fluids, started on Rocephin and Silvadene ordered for lower extremity wounds. [facility] Vital signs have been stable. Patient has had continued confusion through the night. He [place] that [place] and patient was even somewhat combative during the night. Haldol was added last evening. Patient has not slept since admission. Patient gives history of having a problem for a week but then leads to business deal with property in [facility]. Patient had a recent hospitalization in May of this year which time he was treated for acute metabolic encephalopathy thought to be secondary to lower extremity cellulitis and venous stasis ulcers. His troponins were elevated at that time with no sign of acute coronary syndrome. He was seen by both neurology and psychiatry. He underwent CAT scan of the brain at that time that showed no acute findings, carotid duplex showed no significant stenosis. Echocardiogram was EF of 20 with mild mitral regurgitation, mild tricuspid regurgitation, no pulmonary hypertension. There was a plan for her son to obtain guardianship and unsure if this has been accomplished. Patient was stabilized and then discharged home with VNA. 08/14: Patient became more hypotensive yesterday evening as well as developed left-sided chest pain for which she was moved to the intensive care unit as a overflow for the cardiac stepdown unit. His blood pressure has been borderline overnight, no vasopressors required. He does have intermittent chest pain and also complaining of leg spasms of foot pain. He is on Tylenol for pain. He has not been eating much since yesterday morning. We are going to transition patient to ICU patient in and consult with Dr. Bradshaw. Patient continues to have significant confusion. Patient's son has not obtain guardianship. Plan is for discharge to [facility]. Patient has been afebrile, heart rate 78, blood pressure 95/68, pulse ox 100% on 2 L nasal cannula. Repeat lab work reveals hemoglobin 10, sodium 1:30, potassium 5.2, BUN 89 creatinine 2.30. Blood sugars running between 108 and 143. Patient has been seen by nephrology Review of Systems ROS unobtainable: due to mental status Objective - Vital Signs Vital signs: Vital Signs Temp 97.7 F 08/14/19 08:00 Pulse 76 08/14/19 08:00 Resp 18 08/14/19 08:00 BP 95/68 08/14/19 08:00 Pulse Ox 100 08/14/19 08:00 Intake & Output 08/13/19 08/14/19 08/14/19 18:59 06:59 18:59 Intake Total 150 Output Total 200 Balance -200 150 Weight 114.6 kg Intake: Oral 150 Output: Urine 200 Other: Voiding Method Bedside Commode Incontinent # Voids 1 1 # Bowel Movements 1 - Exam General appearance: cooperative, no distress, morbidly obese, patient is in the ICU. Sister is at bedside - EENT Eyes: Reports anicteric sclerae, Reports normal apperance, ENT: Reports hard of hearing, Reports normal oropharynx, D - Neck Neck: Reports normal ROM, Denies lymphadenopathy, Denies rigidity, Denies stridor, Denies thyromegaly Carotids: bilateral: upstroke normal, upstroke delayed Thyroid: bilateral: normal size - Respiratory Respiratory: bilateral: diminished, expiratory wheeze, no rales, rhonchi - Cardiovascular Rhythm: irregularly irregular Heart sounds: normal: S1, S2 Abnormal Heart Sounds: Reports systolic murmur, Reports S3 Gallop - Gastrointestinal General gastrointestinal: Reports hepatomegaly, Reports normal bowel sounds, Reports soft, no tenderness - Integumentary acute and chronic vascular cellulitis of the lower extremity from the knee down with open ulcer right pretibial, toes are dusky blue color 3+ pedal edema bilaterally, dorsalis pedis +2. Please see nursing documentation for details. - Neurologic Neurologic: CNII-XII intact - Musculoskeletal Musculoskeletal: Reports gait not evaluated, Reports generalized weakness, - Psychiatric Psychiatric: A&O x's 1, no appropriate affect, no intact judgment & insight - Labs CBC & Chem 7: 08/14/19 04:44 08/14/19 04:44 Labs: Abnormal Lab Results - Last 24 Hours (Table) 08/13/19 08/13/19 08/13/19 Range/Units 11:43 16:42 19:24 Hgb (13.0-17.5) gm/dL Hct (39.0-53.0) % MCV (80.0-100.0) fL MCH (25.0-35.0) pg MCHC (31.0-37.0) g/dL RDW (11.5-15.5) % Lymphocytes # (1.0-4.8) k/uL Sodium (137-145) mmol/L Potassium (3.5-5.1) mmol/L BUN (9-20) mg/dL Creatinine (0.66-1.25) mg/dL Glucose (74-99) mg/dL POC Glucose (mg/dL) 119 H 158 H (75-99) mg/dL Troponin I 0.065 H* (0.000-0.034) ng/mL 08/13/19 08/13/19 08/14/19 Range/Units 20:48 21:12 04:44 Hgb 10.0 L (13.0-17.5) gm/dL Hct 35.1 L (39.0-53.0) % MCV 79.7 L (80.0-100.0) fL MCH 22.8 L (25.0-35.0) pg MCHC 28.6 L (31.0-37.0) g/dL RDW 17.1 H (11.5-15.5) % Lymphocytes # 0.5 L (1.0-4.8) k/uL Sodium (137-145) mmol/L Potassium (3.5-5.1) mmol/L BUN (9-20) mg/dL Creatinine (0.66-1.25) mg/dL Glucose (74-99) mg/dL POC Glucose (mg/dL) 143 H 130 H (75-99) mg/dL Troponin I (0.000-0.034) ng/mL 08/14/19 08/14/19 Range/Units 04:44 07:11 Hgb (13.0-17.5) gm/dL Hct (39.0-53.0) % MCV (80.0-100.0) fL MCH (25.0-35.0) pg MCHC (31.0-37.0) g/dL RDW (11.5-15.5) % Lymphocytes # (1.0-4.8) k/uL Sodium 130 L (137-145) mmol/L Potassium 5.2 H (3.5-5.1) mmol/L BUN 89 H (9-20) mg/dL Creatinine 2.30 H (0.66-1.25) mg/dL Glucose 108 H (74-99) mg/dL POC Glucose (mg/dL) 112 H (75-99) mg/dL Troponin I (0.000-0.034) ng/mL Microbiology - Last 24 Hours (Table) 08/12/19 16:20 Blood Culture Gram Stain - Preliminary Blood 08/12/19 16:20 Blood Culture - Final Blood 08/13/19 10:00 Gram Stain - Preliminary Leg - Right Wound Culture - Preliminary Assessment and Plan Plan: 1. Acute metabolic encephalopathy secondary to acute kidney injury lower extremity cellulitis and underlying dementia with agitation. Continue local wound care, antibiotics. Patient required Haldol which is on at 0.5 mg every 4 hours as needed. 2. Acute kidney injury secondary to poor oral intake. Patient is status post 2 L of IV fluids. Patient will be given additional fluid boluses. Continue to monitor electrolytes and kidney function daily. Nephrology consult. We will hold Lasix, Aldactone, lisinopril. 3. Acute on chronic lower extremity cellulitis with venous stasis ulcers. Patient is on Rocephin and daptomycin added. Consult with Dr. Story and wound care team. Wound culture in progress. 4. Chronically elevated troponins of unclear significance. 5. Hypotension. Patient transferred to the intensive care unit and consult added for Dr. Bradshaw. No vasopressors at this time. Patient is status post IV fluid boluses. 6. History of coronary artery disease and previous myocardial infarction. Continue aspirin 325 mg daily, Lopressor has been discontinued due to hypotension. 7. Chronic systolic heart failure and ischemic cardiomyopathy. Monitor daily electrolytes, I&O's and weight. 8. Chronic atrial fibrillation. Continue eliquis 5 mg twice daily. 9. Hyperlipidemia. Continue Lipitor 40 mg at bedtime. 10. Hypertension, hypertensive cardiovascular disease. 11. COPD, stable without exacerbation. Continue Singulair 10 mg daily. 12. Diabetes mellitus type 2. Continue NovoLog scale before meals and at bedtime. 13. Gout, chronic. Continue allopurinol at reduced dose of 100 mg and colchicine. 14. Benign prostatic hypertrophy. Continue Flomax 0.8 mg daily and monitor for urinary retention. 15. Recurrent depression. Continue Zoloft 50 mg daily and add Seroquel 25 mg at bedtime to help with insomnia. 16. Gastroesophageal reflux disease and GI prophylaxis. Continue omeprazole will. 17. DVT prophylaxis. Eliquis. 18. Possible obstructive sleep apnea. Recommend sleep study as an outpatient. Melatonin for insomnia. Discharge plan: [facility] next week PT and OT added. Social work for discharge planning. Impression and plan of care have been directed as dictated by the signing physician. Kusum Alvarez nurse practitioner acting as scribe for signing physician.
--- NOTE | 2019-08-14 10:29 | CONS ---
CONSULTATION PULMONARY/CRITICAL CARE CONSULTATION: DATE OF SERVICE: 08/14/2019 This is a 68-year-old male who apparently has a history of COPD, dementia, atrial fibrillation, as well as other diagnoses, including GERD, hyperlipidemia, hypertension, myocardial infarction, and acute kidney injury. He was apparently seen in the emergency room on 08/12. He was admitted with a diagnosis of cellulitis, and acute kidney injury. Cellulitis apparently involved both lower extremities. The patient is homebound. He sees a visiting physician for his medical care. I believe it is Dr. Pal. Anyway, we were initially not consulted. The patient was admitted to the general medical floor and then recently transferred to the ICU late on August 13 because of possible hypotension. He received a couple of liters of fluid on the floor and then transferred here. Currently, his blood pressure is about 90 systolic. He is on O2 at 2 L. He is not getting any IV fluids currently. He is not on any pressors. He did get Flomax early this morning and I have discontinued that medication as that can also cause a drop in blood pressure. Nephrology is on the case. The primary service is Dr. Vogel. Currently, other than being a bit confused, which is not an acute problem, the patient is not having any major issues. He is sitting up in bed, and talking a mile a minute. CURRENT HOME MEDICATIONS: Reviewed. He is on metoprolol, Prilosec, Zoloft, Zyloprim, Eliquis, Ecotrin, Lipitor, colchicine, vitamin D2, Lasix, Krill oil, Imodium, nitroglycerin tablets, oxybutynin, Aldactone, Flomax, and metformin. Additional medications include Silvadene cream, Zaroxolyn, melatonin, Zestril, Lasix, Singulair, and digoxin. ALLERGIES: Denied. MEDICAL HISTORY: Reviewed. He has a history of atrial fibrillation, CHF, COPD, dementia, GERD, hyperlipidemia, hypertension, myocardial infarction, BPH, cardiomyopathy with an ejection fraction of 20%-25%, degenerative disc disease, chronic back pain, GI bleed, duodenitis, diverticular disease, and history of falling. SURGICAL HISTORY: Includes among other things heart catheterization, right knee arthroscopy, left knee I and D, arthrotomy, PICC line insertion, bilateral knee steroid injections, cataract surgery, EGD, and colonoscopy. SOCIAL HISTORY: Negative tobacco use, alcohol use or illicit drug use. FAMILY HISTORY: Positive for CAD and myocardial infarction in dad. Father also had a CABG. Mother has a history of congestive heart failure, COPD, diabetes, and lung cancer. REVIEW OF SYSTEMS: CONSTITUTIONAL: Negative. NEUROLOGIC: Negative. HEENT: Negative. CARDIOVASCULAR: Negative. PULMONARY: Negative. GI: Negative. : Negative. RHEUMATOLOGIC: Negative. IMMUNOLOGIC: Negative. ENDOCRINOLOGIC: Negative. DERMATOLOGIC: Cellulitis bilateral lower extremities. Current vital signs are reviewed. Temperature is 97.7, heart rate 74, respiratory rate 14, blood pressure 95/68 mean 77, saturations on 2 L 100%. Appears in no acute distress. Awake and reasonably alert. He does have the fit of fuentes. HEENT: Examination is grossly unremarkable. Nasal O2 noted. NECK: Supple. Full range of motion. CARDIOVASCULAR: Examination reveals regular rhythm and rate. Heart rate is about mid 70s. S1, S2 normal. LUNGS: Reveal mostly clear breath sounds. A few scattered rhonchi. ABDOMEN: Soft, bowel sounds are heard. EXTREMITIES: Wrapped. SKIN: Without rash. There are a few areas where it looks like he has been picking at his skin. I do not see any open sores. NEUROLOGIC: Examination is brief but nonfocal. LABS: Reviewed. White count 5.2, hemoglobin 10, hematocrit 35.1, platelet count 180,000. PT, INR were 13.3 and 1.3. PTT is 22.8. Sodium 130, potassium 5.2, chloride is 99, CO2 is 22, anion gap is 9. BUN and creatinine were 89 and 2.30. Troponins were 0.082 and 0.065. Albumin 3.2. Urine shows it to be trace positive leukocyte esterase. There was 5 WBCs, rare bacteria. Urine is positive for opiates. Microbiology wound cultures and blood cultures are thus far negative. Chest x-ray shows significant cardiomegaly. Medications are reviewed. Medications that might affect blood pressure are discontinued. ASSESSMENT: 1. Hypotension, which may relate to underlying sepsis/cellulitis. 2. Acute kidney injury. 3. Possible drug-induced hypotension. 4. History of atrial fibrillation. 5. History of congestive heart failure with profound cardiomyopathy and ejection fraction of 20% to 25%. 6. Dementia. 7. No clear history of chronic obstructive pulmonary disease as the patient is a lifelong nonsmoker. 8. Gastroesophageal reflux disease. 9. Hyperlipidemia. 10.Benign essential hypertension. 11.Myocardial infarction. 12.Benign prostatic hypertrophy. 13.Degenerative disc disease. PLAN: Unnecessary medications or medications that might decrease blood pressure are discontinued. Currently, the patient is not requiring any pressors. He has been fluid resuscitated. Will discontinue the Flomax. He is currently on 2 L nasal cannula. Saturations are excellent. Additional recommendations and suggestions are forthcoming. The patient has been seen by Infectious Diseases. In terms of antibiotics, the patient is currently on Rocephin. We will continue to follow. Prognosis is guarded. Should be cultured if not already. Medication changes have been suggested. MMODL / IJN: [id number] /
--- NOTE | 2019-08-14 10:44 | PN ---
PROGRESS NOTE DATE OF SERVICE: 08/14/2019 REASON FOR FOLLOWUP: Bilateral lower extremity wound with cellulitis. INTERVAL HISTORY: The patient has been transferred out of the ICU because of hypotension, has received 2 L of fluid. No pressor support. The patient is pleasantly confused, but no agitation has been noticed. Denies having any chest pain. No shortness of breath or cough. No nausea, no vomiting, no abdominal pain. No pain to the lower extremity. PHYSICAL EXAMINATION: Blood pressure is 95/68 with a pulse of 76, temperature is 97.7, he is 100% on 2 L nasal cannula. General description is an elderly male, lying in bed in no distress. RESPIRATORY SYSTEM: Unlabored breathing, clear to auscultation anteriorly. HEART: S1, S2. Regular rate and rhythm. ABDOMEN: Soft, no tenderness. EXTREMITIES: Legs are currently wrapped. No obvious drainage on the dressing. LABS: Hemoglobin is 10 with a white count 5.2, BUN of 18, and creatinine 2.30. Blood cultures with gram-positive cocci in groups. DIAGNOSTIC IMPRESSION AND PLAN: Patient admitted to the hospital with bilateral lower extremity cellulitis and wounds, now with evidence of gram-positive bacteremia. We will add daptomycin 6 mg/kg q.48. Blood cultures will be repeated to document clearance of the bacteremia, high risk of nephrotoxicity from the vancomycin and to monitor his clinical course closely. Local care to continue with Medihoney followed by moist dressings. Family at the bedside. Their questions were answered. MMODL / IJN: [id number] /
--- NOTE | 2019-08-14 11:56 | P.CRDCN ---
History of Present Illness Consult date: 08/14/19 Consult reason: chest pain History of present illness: This is a 68-year-old male patient of Dr. Pal with past medical history of hypertension with hypertensive cardiovascular disease, hyperlipidemia, ischemic cardiopathy, chronic systolic heart failure, non-ST elevated myocardial infarction, COPD, chronic atrial fibrillation and chronic edema with chronic lower extremity cellulitis and dementia. Patient's caregiver came into his home and found that he had bleeding from his lower extremities where he has chronic wounds and abrasions and had increasing confusion from his baseline. EMS was contacted and patient was brought into [facility] emergency center. He was found to be afebrile but blood pressure was 84/71, pulse ox 99% on room air. WBC 12.4, hemoglobin 11.9. Sodium 135, potassium 5.4, chloride 100, CO2 21, BUN 79 creatinine 2.46. Total bilirubin 1.7, AST 74, ALT 38, alkaline phosphatase 72. Ammonia 13, urine drug screen positive for opiates. Troponins 0.082 and 0.079, albumin 3.3. Urinalysis was protein trace, RBCs 35, hyaline casts 37. Chest x-ray showed no acute process. CAT scan of the brain showed no acute intracranial hemorrhage or midline shift. There was diffuse age-related cerebral atrophy and chronic small vessel ischemic change. EKG was atrial fibrillation rate of 87. The patient was provided 2 L of IV fluids, started on Rocephin and Silvadene ordered for lower extremity wounds. Patient was admitted to the [facility] floor. He has required Haldol for confusion and agitation and patient continues to have significant confusion. Patient was hypotensive yesterday evening as well as developed left-sided chest pain for which he was moved to the intensive care unit as a overflow for the cardiac stepdown unit. His blood pressure has been borderline overnight, no vasopressor s required. He does have intermittent chest pain and also complaining of leg spasms of foot pain. When asked directly, patient is now complaining of chest pain on the right side of his chest. No tenderness is noted. He is on Tylenol for pain. Patient has been afebrile, heart rate 78, blood pressure 95/68, pulse ox 100% on 2 L nasal cannula. Repeat lab work reveals hemoglobin 10, sodium 130, potassium 5.2, BUN 89 creatinine 2.30. Blood sugars running between 108 and 143. Patient has been seen by nephrology for acute kidney injury. Troponins have been 0.02, 0.079, 0.065. Patient had a recent hospitalization in May of this year which time he was treated for acute metabolic encephalopathy thought to be secondary to lower extremity cellulitis and venous stasis ulcers. His troponins were elevated at that time with no sign of acute coronary syndrome. Echocardiogram at that time revealed EF less than 20, mild mitral regurgitation, mild tricuspid regurgit ation, no pulmonary hypertension. Review Of Systems: Unable to be obtained due to mental status changes. Physical exam: Gen: This is a 76-year-old obese male. He is resting in bed and appears to be comfortable and in no acute distress. HEENT: Head is atraumatic, normocephalic. Pupils equal, round. Sclerae is anicteric. NECK: Supple. No JVD. No lymphadenopathy. No thyromegaly. LUNGS: Clear to auscultation. No wheezes or rhonchi. Diminished breath sounds. No intercostal retractions. HEART: Irregularly irregular rate and rhythm. Systolic murmur. ABDOMEN: Soft. Bowel sounds are present. No masses. No tenderness. EXTREMITIES: acute and chronic vascular cellulitis of the lower extremity from the knee down with open ulcer right pretibial, toes are dusky blue color 3+ pedal edema bilaterally, dorsalis pedis +2. Please see nursing documentation for details. NEUROLOGICAL: Patient is awake, alert to person. Assessment: Chest pain, atypical Chronic elevation of troponins possibly related to renal failure Hypotension possibly related to sepsis History of coronary artery disease with previous myocardial infarction Chronic systolic heart failure and ischemic cardiomyopathy, stable Chronic atrial fibrillation Hyperlipidemia Hypertension, hypertensive cardiovascular disease, currently hypotensive Metabolic encephalopathy with sepsis, lower extremity ulcers and cellulitis Acute renal failure Diabetes mellitus type 2 Plan: Lasix, Aldactone and lisinopril on hold Continue antibiotics per infectious disease Continue eliquis, aspirin, Lipitor Continue conservative management Further recommendations pending patient's progress. Nurse practitioner note has been reviewed, I agree with documented findings and plan of care. Patient was seen and examined. Past Medical History Past Medical History: Atrial Fibrillation, Heart Failure, COPD, Dementia, GERD/Reflux, Hyperlipidemia, Hypertension, Myocardial Infarction ([place]), Prostate Disorder, Renal Disease, Skin Disorder Additional Past Medical History / Comment(s): Mild dementia, cardiomyopathy, last known EF was 20-25%, afib with RVR in past, chronic lower leg edema, chronic vascular cellulitis lower extremities, lumbar DDD, back pain, previous history of GI bleed, doudenitis, diverticulum, BPH, athrities bilateral knees and back, COPD, chronic lower extremity once, history of fall Last Myocardial Infarction Date:: 07/2015 History of Any Multi-Drug Resistant Organisms: None Reported Past Surgical History: Heart Catheterization, Orthopedic Surgery Additional Past Surgical History / Comment(s): 2002 cardiac cath-no intervention, R knee arthroscopy, L knee I & D for prepatellar bursa infection - arthrotomy, PICC line insertion with eventual removal, lumbar and bilateral knee steroid injections, cataract surgery bilaterally,EGD/colonoscopy. Past Anesthesia/Blood Transfusion Reactions: No Reported Reaction Past Psychological History: Anxiety, Depression Smoking Status: Never smoker Past Alcohol Use History: None Reported Past Drug Use History: None Reported - Past Family History Father History Unknown: Yes Family Medical History: Coronary Artery Disease (CAD), Myocardial Infarction ([place]) Additional Family Medical History / Comment(s): Father had CABG. He passed from a [place] at the age of 62 yrs. Mother History Unknown: Yes Family Medical History: Cancer, Congestive Heart Failure (CHF), COPD, Diabetes Mellitus Additional Family Medical History / Comment(s): Mother had lung cancer. She was a smoker. She at the age of 62 yrs. Medications and Allergies Home Medications Medication Instructions Recorded Confirmed Type Metoprolol Tartrate [Lopressor] 100 mg PO BID 08/03/15 08/12/19 History Montelukast [Singulair] 10 mg PO DAILY #0 NS 08/07/15 08/13/19 Rx Omeprazole [PriLOSEC] 40 mg PO DAILY 06/19/16 08/13/19 History Sertraline HCl 50 mg PO DAILY 06/19/16 08/13/19 History Allopurinol [Zyloprim] 300 mg PO DAILY 05/25/19 08/13/19 History Apixaban [Eliquis] 5 mg PO BID 05/25/19 08/13/19 History Aspirin EC [Ecotrin] 325 mg PO DAILY 05/25/19 08/13/19 History Atorvastatin [Lipitor] 40 mg PO HS 05/25/19 08/13/19 History Colchicine 0.6 mg PO BID 05/25/19 08/13/19 History Ergocalciferol [Vitamin D2 50,000 unit PO Q7D 05/25/19 08/13/19 History (DRISDOL)] Krill Oil 1,000 mg PO DAILY 05/25/19 08/13/19 History Loperamide HCl [Imodium A-D] 2 mg PO QID PRN 05/25/19 08/13/19 History Nitroglycerin Sl Tabs [Nitrostat] 0.4 mg SUBLINGUAL Q5M PRN 05/25/19 08/13/19 History Oxybutynin Chloride [Oxybutynin 10 mg PO DAILY 05/25/19 08/13/19 History Chloride ER] Spironolactone 50 mg PO BID 05/25/19 08/13/19 History Tamsulosin [Flomax] 0.8 mg PO PC-[id number] 05/25/19 08/13/19 History Lisinopril [Zestril] 2.5 mg PO DAILY #30 tab 05/30/19 08/12/19 Rx Furosemide [Lasix] 40 mg PO DAILY 08/12/19 08/12/19 History Niacin [Niacin ER] 500 mg PO DAILY 08/13/19 08/13/19 History Allergies Allergy/AdvReac Type Severity Reaction Status Date / Time No Known Allergies Allergy Verified 08/12/19 18:28 Physical Exam Vitals: Vital Signs Temp Pulse Pulse Resp BP BP BP 08/14/19 11:00 78 10 L 87/65 08/14/19 10:00 78 20 88/59 08/14/19 09:00 74 14 83/63 08/14/19 08:00 97.7 F 76 18 95/68 08/14/19 04:00 97.6 F 78 17 105/82 08/13/19 22:00 97.6 F 72 16 88/69 08/13/19 20:47 97.5 F L 69 78/58 08/13/19 19:30 70 20 08/13/19 19:25 86 20 97/69 08/13/19 19:08 97.8 F 73 18 109/72 08/13/19 15:07 97.5 F L 91 15 76/58 Pulse Ox 08/14/19 11:00 97 08/14/19 10:00 95 08/14/19 09:00 100 08/14/19 08:00 100 08/14/19 04:00 08/13/19 22:00 08/13/19 20:47 98 08/13/19 19:30 08/13/19 19:25 08/13/19 19:08 95 08/13/19 15:07 92 L Intake and Output 08/13/19 08/14/19 08/14/19 22:59 06:59 14:59 Intake Total 100 50 80 Output Total 475 Balance 100 50 -395 Intake: IV 80 0.9 30 cefTRIAXone 2 gm In 50 Sodium Chloride 0.9% 50 ml @ 100 mls/hr IVPB Q24HR [facility] Rx#:[id number] Oral 100 50 Output: Urine 475 Other: Voiding Method Urinal Bedside Commode Bedside Commode Incontinent Urinal Incontinent # Voids 1 1 # Bowel Movements 1 Weight 114.6 kg Results 08/14/19 04:44 08/14/19 04:44 Cardiac Enzymes 08/13/19 Range/Units 19:24 Troponin I 0.065 H* (0.000-0.034) ng/mL CBC 08/14/19 Range/Units 04:44 WBC 5.2 (3.8-10.6) k/uL RBC 4.40 (4.30-5.90) m/uL Hgb 10.0 L (13.0-17.5) gm/dL Hct 35.1 L (39.0-53.0) % Plt Count 180 (150-450) k/uL Comprehensive Metabolic Panel 08/14/19 Range/Units 04:44 Sodium 130 L (137-145) mmol/L Potassium 5.2 H (3.5-5.1) mmol/L Chloride 99 (98-107) mmol/L Carbon Dioxide 22 (22-30) mmol/L BUN 89 H (9-20) mg/dL Creatinine 2.30 H (0.66-1.25) mg/dL Glucose 108 H (74-99) mg/dL Calcium 8.8 (8.4-10.2) mg/dL Current Medications Generic Name Dose Route Start Last Admin Trade Name Freq PRN Reason Stop Dose Admin Acetaminophen 650 mg 08/12/19 21:31 08/14/19 09:04 Tylenol Tab PO 650 mg Q4HR PRN Administration Fever and/ or Pain Allopurinol 100 mg 08/14/19 09:00 08/14/19 09:00 Zyloprim PO 100 mg DAILY [facility]ERICO Administration Apixaban 5 mg 08/13/19 21:00 08/14/19 09:00 Eliquis PO 5 mg BID FEDERICO Administration Aspirin 325 mg 08/14/19 09:00 08/14/19 09:00 Aspirin PO 325 mg DAILY FEDERICO Administration Colchicine 0.6 mg 08/13/19 21:00 08/14/19 09:00 Colcrys PO 0.6 mg BID FEDERICO Administration Haloperidol Lactate 0.5 mg 08/13/19 00:56 08/13/19 01:08 Haldol IM 0.5 mg Q4HR PRN Administration Agitation or Acute Psychosis Ceftriaxone Sodium 2 gm/ 50 mls @ 100 mls/hr 08/13/19 09:00 08/14/19 09:36 Sodium Chloride IVPB 100 mls/hr Q24HR [facility]ER[facility] Administration Daptomycin 700 mg/ Sodium 50 mls @ 100 mls/hr 08/14/19 11:00 Chloride IVPB Q48H [facility] Protocol Insulin Aspart 0 unit 08/13/19 07:30 08/14/19 08:33 Novolog SQ Not Given ACHS [facility] Protocol Midodrine 5 mg 08/13/19 12:29 08/13/19 15:03 Proamatine PO 5 mg AC-TID PRN Administration Hypotension Montelukast Sodium 10 mg 08/14/19 09:00 08/14/19 09:00 Singulair PO 10 mg DAILY FEDERICO Administration Morphine Sulfate 2 mg 08/13/19 20:32 Morphine Sulfate (Inj) IVP Q6H PRN Pain/Discomfort Naloxone HCl 0.2 mg 08/12/19 16:56 Narcan IV Q2M PRN Opioid Reversal Pantoprazole Sodium 40 mg 08/14/19 09:00 08/14/19 09:00 Protonix PO 40 mg DAILY [facility]ERICO Administration Quetiapine Fumarate 25 mg 08/13/19 21:00 08/13/19 22:22 Seroquel PO 25 mg HS [facility] Administration Sertraline HCl 50 mg 08/14/19 09:00 08/14/19 09:36 Zoloft PO 50 mg DAILY [facility]ERICO Administration Intake and Output 08/13/19 08/14/19 08/14/19 22:59 06:59 14:59 Intake Total 100 50 80 Output Total 475 Balance 100 50 -395 Intake: IV 80 0.9 30 cefTRIAXone 2 gm In 50 Sodium Chloride 0.9% 50 ml @ 100 mls/hr IVPB Q24HR [facility] Rx#:[id number] Oral 100 50 Output: Urine 475 Other: Voiding Method Urinal Bedside Commode Bedside Commode Incontinent Urinal Incontinent # Voids 1 1 # Bowel Movements 1 Weight 114.6 kg 08/14/19 04:44 08/14/19 04:44
[2019-08-14 12:02] LABS: Glucose,Whole Blood 169 mg/dL (75-99)
--- NOTE | 2019-08-14 14:30 | PN ---
PROGRESS NOTE Patient is seen for followup for acute kidney injury. Renal function is fairly stable with creatinine staying at 2.29-2.3. Patient has been incontinent. He has only voided once. Blood pressure remains on the lower side. Patient is maintained on daptomycin. He has been eating some. He is also maintained on midodrine for chronic hypotension. PHYSICAL EXAMINATION: On examination, blood pressure was 87/65, heart rate 78 per minute. He is afebrile. Examination of the heart S1, S2. Examination of the lungs, bilateral breath sounds are heard. Abdomen is soft, nontender. Examination of the lower extremities shows bilateral extremities to be wrapped. ESTIMATION MANAGER exam grossly intact. LABS: Show sodium 130, potassium 5.2, BUN 889, creatinine 2.3, hemoglobin 10.0. ASSESSMENT: 1. Acute kidney injury, acute tubular necrosis, nonoliguric, fairly stable, secondary to hypotension, mainly. A bladder scan will be performed if there is evidence of retention. Moran catheter will be placed. 2. Chronic systolic congestive heart CHF with EF less than 20%, currently compensated. 3. Lower extremity ulcers bilaterally. 4. Hypotension due to cardiomyopathy, maintained on midodrine. PLAN: Continue with the midodrine. Continue to encourage increased oral intake. May continue with the antibiotics. Repeat labs in a.m. MMODL / IJN: [id number] /
[2019-08-14 16:57] LABS: Glucose,Whole Blood 149 mg/dL (75-99)
[2019-08-14 20:52] LABS: Glucose,Whole Blood 152 mg/dL (75-99)
[2019-08-14] MEDS: QUEtiapine 25 MG TAB PO SCH (20:57)
[2019-08-14] MEDS: HALOPERIDOL LACTATE 5 MG/ML 1 ML VIAL IM PRN (20:59)
[2019-08-15 05:29] LABS: Anisocytosis Slight; HCT 37.7 % (39.0-53.0); HGB 10.7 gm/dL (13.0-17.5); Hypochromasia Marked; MCH 23.1 pg (25.0-35.0); MCHC 28.4 g/dL (31.0-37.0); MCV 81.4 fL (80.0-100.0); Mean Platelet Volume 9.2; Platelet Count 226 k/uL (150-450); Poikilocytosis Slight; RBC 4.63 m/uL (4.30-5.90); RDW 16.8 % (11.5-15.5)
[2019-08-15 05:38] LABS: Calcium 9.2 mg/dL (8.4-10.2); Potassium 4.8 mmol/L (3.5-5.1)
[2019-08-15 06:13] LABS: WBC 8.8 k/uL (3.8-10.6)
[2019-08-15 06:14] LABS: Lymphocytes # (M) 0.62 k/uL (1.0-4.8); Monocytes # (M) 0.44 k/uL (0-1.0); Neutrophils # (M) 7.83 k/uL (1.3-7.7); Neutrophils % (M) 89 %; Nucleated Red Blood Cells 0 /100 WBC (0-0); Total Cells Counted 200
[2019-08-15 06:15] LABS: Ovalocytes Present; Polychromasia Present
[2019-08-15 06:53] LABS: Glucose,Whole Blood 97 mg/dL (75-99)
[2019-08-15] MEDS: INSULIN ASPART (NovoLOG) 100 UNIT/ML VIAL SQ SCH ×4 (07:37→22:48)
[2019-08-15] MEDS: APIXABAN 5 MG TAB PO SCH ×2 (09:15→20:35)
[2019-08-15] MEDS: ASPIRIN 325 MG TAB PO SCH (09:15)
[2019-08-15] MEDS: ALLOPURINOL 100 MG TAB PO SCH (09:15)
[2019-08-15] MEDS: MONTELUKAST 10 MG TAB PO SCH (09:16)
[2019-08-15] MEDS: SERTRALINE 50 MG TAB PO SCH (09:16)
[2019-08-15] MEDS: COLCHICINE 0.6 MG EACH PO SCH ×2 (09:16→20:35)
[2019-08-15] MEDS: PANTOPRAZOLE 40 MG TABLET PO SCH (09:16)
--- NOTE | 2019-08-15 10:33 | P.PN ---
Subjective Progress Note Date: 08/15/19 This is a 68-year-old male patient of Dr. Pal with past medical history of hypertension with hypertensive cardiovascular disease, hyperlipidemia, ischemic cardiopathy, chronic systolic heart failure, non-ST elevated myocardial infarction, COPD, chronic atrial fibrillation and chronic edema with chronic lower extremity cellulitis and dementia. Patient's caregiver came into his home and found that he had bleeding from his lower extremities where he has chronic wounds and abrasions and had increasing confusion from his baseline. EMS was contacted and patient was brought into [facility] emergency center. He was found to be afebrile but blood pressure was 84/71, pulse ox 99% on room air. WBC 12.4, hemoglobin 11.9. Sodium 135, potassium 5.4, chloride 100, CO2 21, BUN 79 creatinine 2.46. Total bilirubin 1.7, AST 74, ALT 38, alkaline phosphatase 72. Ammonia 13, urine drug screen positive for opiates. Troponins 0.082 and 0.079, albumin 3.3. Urinalysis was protein trace, RBCs 35, hyaline casts 37. Chest x-ray showed no acute process. CAT scan of the brain showed no acute intracranial hemorrhage or midline shift. There was diffuse age-related cerebral atrophy and chronic small vessel ischemic change. EKG was atrial fibrillation rate of 87. The patient was provided 2 L of IV fluids, started on Rocephin and Silvadene ordered for lower extremity wounds. Patient w as admitted to the [facility] floor. He has required Haldol for confusion and agitation and patient continues to have significant confusion. Patient was hypotensive yesterday evening as well as developed left-sided chest pain for which he was moved to the intensive care unit as a overflow for the cardiac stepdown unit. His blood pressure has been borderline overnight, no vasopressors required. He does have intermittent chest pain and also complaining of leg spasms of foot pain. When asked directly, patient is now complaining of chest pain on the right side of his chest. No tenderness is note d. He is on Tylenol for pain. Patient has been afebrile, heart rate 78, blood pressure 95/68, pulse ox 100% on 2 L nasal cannula. Repeat lab work reveals hemoglobin 10, sodium 130, potassium 5.2, BUN 89 creatinine 2.30. Blood sugars running between 108 and 143. Patient has been seen by nephrology for acute kidney injury. Troponins have been 0.02, 0.079, 0.065. Patient had a recent hospitalization in May of this year which time he was treated for acute metabolic encephalopathy thought to be secondary to lower extremity cellulitis and venous stasis ulcers. His troponins were elevated at that time with no sign of acute coronary syndrome. Echocardiogram at that time revealed EF less than 20, mild mitral regurgitation, mild tricuspid regurgitation, no pulmonary hypertension. 08/15: Today patient is seen in the ICU waiting for a [facility] bed. The pressure is 110/87. Patient is denying any chest pain at this time. Pulse ox 81% on room air, heart rate 78, afebrile. Hemoglobin 10.7, BUN 84 and creatinine 1.98, sodium 132. Physical exam: Gen: This is a 76-year-old obese male. He is resting in bed and appears to be comfortable and in no acute distress. HEENT: Head is atraumatic, normocephalic. Pupils equal, round. Sclerae is anicteric. NECK: Supple. No JVD. No lymphadenopathy. No thyromegaly. LUNGS: Clear to auscultation. No wheezes or rhonchi. Diminished breath sounds. No intercostal retractions. HEART: Irregularly irregular rate and rhythm. Systolic murmur. ABDOMEN: Soft. Bowel sounds are present. No masses. No tenderness. EXTREMITIES: acute and chronic vascular cellulitis of the lower extremity from the knee down with open ulcer right pretibial, toes are dusky blue color 3+ pedal edema bilaterally, dorsalis pedis +2. Please see nursing documentation for details. NEUROLOGICAL: Patient is awake, alert to person. Assessment: Chest pain, atypical Chronic elevation of troponins possibly related to renal failure Hypotension possibly related to sepsis History of coronary artery disease with previous myocardial infarction Chronic systolic heart failure and ischemic cardiomyopathy, stable Chronic atrial fibrillation Hyperlipidemia Hypertension, hypertensive cardiovascular disease, currently hypotensive Metabolic encephalopathy with sepsis, lower extremity ulcers and cellulitis Acute renal failure Diabetes mellitus type 2 Plan: Lasix, Aldactone and lisinopril on hold Continue antibiotics per infectious disease Continue eliquis, aspirin, Lipitor Continue conservative management Cardiology will sign off this case and follow on an as-needed basis. Please reconsult if any concerns develop. Nurse practitioner note has been reviewed, I agree with documented findings and plan of care. Patient was seen and examined. Objective - Vital Signs Vital signs: Vital Signs Temp 97.7 F 08/15/19 08:00 Pulse 78 08/15/19 08:00 Resp 16 08/15/19 08:00 BP 131/97 08/15/19 09:00 Pulse Ox 91 L 08/15/19 08:00 Intake & Output 08/14/19 08/15/19 08/15/19 18:59 06:59 18:59 Intake Total 130 10 Output Total 1240 1305 675 Balance -1110 -1295 -675 Weight 121.5 kg Intake: IV 130 10 0.9 80 10 cefTRIAXone 2 gm In 50 Sodium Chloride 0.9% 50 ml @ 100 mls/hr IVPB Q24HR [facility] Rx#:[id number] Output: Urine 1240 1305 675 Other: Voiding Method Indwelling Catheter Indwelling Catheter Indwelling Catheter # Voids 1 - Labs CBC & Chem 7: 08/15/19 04:54 08/15/19 04:54 Labs: Abnormal Lab Results - Last 24 Hours (Table) 08/14/19 08/14/19 08/14/19 Range/Units 12:00 16:55 20:50 Hgb (13.0-17.5) gm/dL Hct (39.0-53.0) % MCH (25.0-35.0) pg MCHC (31.0-37.0) g/dL RDW (11.5-15.5) % Neutrophils # (Manual) (1.3-7.7) k/uL Lymphocytes # (Manual) (1.0-4.8) k/uL Sodium (137-145) mmol/L BUN (9-20) mg/dL Creatinine (0.66-1.25) mg/dL Glucose (74-99) mg/dL POC Glucose (mg/dL) 169 H 149 H 152 H (75-99) mg/dL 08/15/19 08/15/19 Range/Units 04:54 04:54 Hgb 10.7 L (13.0-17.5) gm/dL Hct 37.7 L (39.0-53.0) % MCH 23.1 L (25.0-35.0) pg MCHC 28.4 L (31.0-37.0) g/dL RDW 16.8 H (11.5-15.5) % Neutrophils # (Manual) 7.83 H (1.3-7.7) k/uL Lymphocytes # (Manual) 0.62 L (1.0-4.8) k/uL Sodium 132 L (137-145) mmol/L BUN 84 H (9-20) mg/dL Creatinine 1.98 H (0.66-1.25) mg/dL Glucose 122 H (74-99) mg/dL POC Glucose (mg/dL) (75-99) mg/dL Microbiology - Last 24 Hours (Table) 08/12/19 16:20 Blood Culture Gram Stain - Preliminary Blood Blood Culture - Preliminary Coagulase Negative Staph 08/12/19 16:20 Blood Culture - Final Blood
--- NOTE | 2019-08-15 10:35 | PN ---
PROGRESS NOTE PULMONARY/CRITICAL CARE PROGRESS NOTE: DATE OF SERVICE: 08/15/2019 This is a 68-year-old gentleman who we saw yesterday in consultation. He has a history of COPD, dementia, atrial fibrillation, GERD, hyperlipidemia, hypertension, myocardial infarction, and acute kidney injury. He was admitted through the emergency room on August 12 with a diagnosis of cellulitis and acute kidney injury. We were consulted for possible hypotension. The patient never really developed significant hypotension here in the ICU and never required anything in the way of vasopressors. Currently, he is doing relatively well. He is not receiving any IV fluids or supplemental oxygen. The patient really has no major complaints. He apparently had some significant agitation last night here in the ICU according to the nurses. His primary care physician is Dr. Vogel. PHYSICAL EXAMINATION: Current vital signs are reviewed. Temperature is 97.6, heart rate 79, respiratory rate 14, blood pressure 104/81, mean 88, room air saturations 94-95%. He appears in no acute distress. Currently sleeping. HEENT: Examination is grossly unremarkable. Mucous membranes are moist. NECK: Supple. Full range of motion. No adenopathy. Neck veins are flat. CARDIOVASCULAR: Examination reveals regular rhythm and rate. Heart rate 79. S1, S2 normal. No S3, S4, or murmur. LUNGS: Reveal mostly clear breath sounds. A few scattered mild rhonchi. No wheezes or crackles. ABDOMEN: Soft. Bowel sounds are heard. EXTREMITIES are intact. No cyanosis, clubbing, or edema. SKIN: Without rash. NEUROLOGIC: Examination is nonfocal. LAB DATA: Reviewed. White count 8.8, hemoglobin 10.7, hematocrit 37.7, platelet count 326,000. Sodium 132, potassium 4.8, chloride 99, CO2 23, anion gap is 10. BUN and creatinine were 84 and 1.98. Microbiology showing blood cultures positive for coag-negative staph. No recent x-rays to report. Current medications are reviewed. The patient is on Rocephin, daptomycin, as well as usual medications. ASSESSMENT: 1. Hypotension which may relate to underlying sepsis/cellulitis. The patient never required vasopressors. 2. Acute kidney injury. 3. Possible drug-induced hypotension. 4. History of atrial fibrillation. 5. History of congestive heart failure with a significant cardiomyopathy and ejection fraction of 20-25%. 6. History of dementia. 7. No clear history of chronic obstructive pulmonary disease as the patient is a lifelong nonsmoker. 8. Gastroesophageal reflux disease. 9. Hyperlipidemia. 10.Benign essential hypertension. 11.Myocardial infarction. 12.Benign prostatic hypertrophy. 13.Degenerative disk disease. PLAN: The patient is doing relatively well. Never required vasopressors. The patient is on adequate antibiotics. He has been seen by ID. From the pulmonary standpoint, the patient is stable. Not requiring any supplemental oxygen. The patient is otherwise doing reasonably well. We will continue to follow. Prognosis is guarded. The patient could be transferred off the unit to the general medical floor. MMODL / IJN: [id number] /
[2019-08-15 11:55] LABS: Glucose,Whole Blood 143 mg/dL (75-99)
--- NOTE | 2019-08-15 13:02 | PN ---
PROGRESS NOTE Patient is seen for followup for acute kidney injury. Renal function is fairly stable with creatinine at about 2. This morning serum creatinine is down to 1.9 from 2.3 yesterday. Patient has an indwelling Moran catheter. Current urine output is at about 100-200 mL an hour. The patient is maintained on IV antibiotics. PHYSICAL EXAMINATION: On examination today, blood pressure was 110/87, heart rate 78 per minute, he is afebrile. Examination of the heart S1, S2. Examination of the lungs, decreased breath sounds at bases. Abdomen is soft, nontender. Examination lower extremities shows both extremities are currently wrapped. LABS: Sodium 132, potassium 4.8, BUN 84, creatinine 1.9, hemoglobin 10.7 g/dL. ASSESSMENT: 1. Acute kidney injury, acute tubular necrosis, nonoliguric, slightly improved. 2. Chronic congestive heart failure, ejection fraction less than 20%, currently compensated. 3. Bilateral lower extremity ulcers. 4. Hypotension mostly associated with underlying cardiomyopathy, maintained on midodrine. Blood pressures have improved and they are above 100 mmHg systolic. PLAN: Continue empiric antibiotics. Continue with the midodrine and increase oral intake. Continue to avoid nephrotoxic agents. MMODL / IJN: [id number] /
--- NOTE | 2019-08-15 14:56 | P.PN ---
Subjective Progress Note Date: 08/15/19 This is a 68-year-old male patient of Dr. Pal with past medical history of hypertension with hypertensive cardiovascular disease, hyperlipidemia, ischemic cardiopathy, chronic systolic heart failure, non-ST elevated myocardial infarction, COPD, chronic atrial fibrillation and chronic edema with chronic lower extremity cellulitis and dementia. Patient's caregiver came into his home and found that he had bleeding from his lower extremities where he has chronic wounds and abrasions and had increasing confusion from his baseline. EMS was contacted and patient was brought into [facility] emergency center. He was found to be afebrile but blood pressure was 84/71, pulse ox 99% on room air. WBC 12.4, hemoglobin 11.9. Sodium 135, potassium 5.4, chloride 100, CO2 21, BUN 79 creatinine 2.46. Total bilirubin 1.7, AST 74, ALT 38, alkaline phosphatase 72. Ammonia 13, urine drug screen positive for opiates. Troponins 0.082 and 0.079, albumin 3.3. Urinalysis was protein trace, RBCs 35, hyaline casts 37. Chest x-ray showed no acute process. CAT scan of the brain showed no acute intracranial hemorrhage or midline shift. There was diffuse age-related cerebral atrophy and chronic small vessel ischemic change. EKG was atrial fibrillation rate of 87. The patient was provided 2 L of IV fluids, started on Rocephin and Silvadene ordered for lower extremity wounds. [facility] Vital signs have been stable. Patient has had continued confusion through the night. He [place] and patient was even somewhat combative during the night. Haldol was added last evening. Patient has not slept since admission. Patient gives history of having a problem for a week but then leads to business deal with property in [facility]. Patient had a recent hospitalization in May of this year which time he was treated for acute metabolic encephalopathy thought to be secondary to lower extremity cellulitis and venous stasis ulcers. His troponins were elevated at that time with no sign of acute coronary syndrome. He was seen by both neurology and psychiatry. He underwent CAT scan of the brain at that time that showed no acute findings, carotid duplex showed no significant stenosis. Echocardiogram was EF of 20 with mild mitral regurgitation, mild tricuspid regurgitation, no pulmonary hypertension. There was a plan for her son to obtain guardianship and unsure if this has been accomplished. Patient was stabilized and then discharged home with [facility]NA. 08/14: Patient became more hypotensive yesterday evening as well as developed left-sided chest pain for which she was moved to the intensive care unit as a overflow for the cardiac stepdown unit. His blood pressure has been borderline overnight, no vasopressors required. He does have intermittent chest pain and also complaining of leg spasms of foot pain. He is on Tylenol for pain. He has not been eating much since yesterday morning. We are going to transition patient to ICU patient in and consult with Dr. Bradshaw. Patient continues to have significant confusion. Patient's son has not obtain guardianship. Plan is for discharge to [facility]. Patient has been afebrile, heart rate 78, blood pressure 95/68, pulse ox 100% on 2 L nasal cannula. Repeat lab work reveals hemoglobin 10, sodium 1:30, potassium 5.2, BUN 89 creatinine 2.30. Blood sugars running between 108 and 143. Patient has been seen by nephrology 08/15: Today patient is seen in the ICU. Dr. Huff has cleared him for MedSurg without telemetry and he is waiting for a MedSurg bed. The pressure is 110/87. Patient is denying any chest pain at this time but is requesting that to help with ambulation be set up for him. Pulse ox 91% on room air, heart rate 78, afebrile. Hemoglobin 10.7, BUN 84 and creatinine 1.98, sodium 132. The patient was quite combative during the night and required 1 dose of Haldol. He slept after that and mental status has been improved. Sr. has been here most of the day but is returning to [place]. Anticipate discharge to subacute rehab tomorrow. Review of Systems ROS unobtainable: due to mental status Objective - Vital Signs Vital signs: Vital Signs Temp 97.6 F 08/15/19 04:00 Pulse 79 08/15/19 07:00 Resp 14 08/15/19 07:00 BP 104/81 08/15/19 07:00 Pulse Ox 92 L 08/15/19 07:00 Intake & Output 08/14/19 08/15/19 08/15/19 18:59 06:59 18:59 Intake Total 130 10 Output Total 1240 1305 225 Balance -1110 -7415 -225 Weight 121.5 kg Intake: IV 130 10 0.9 80 10 cefTRIAXone 2 gm In 50 Sodium Chloride 0.9% 50 ml @ 100 mls/hr IVPB Q24HR [facility] Rx#:[id number] Output: Urine 1240 1305 225 Other: Voiding Method Indwelling Catheter Indwelling Catheter # Voids 1 - Exam General appearance: cooperative, no distress, morbidly obese, patient is in the ICU. - EENT Eyes: Reports anicteric sclerae, Reports normal apperance, ENT: Reports hard of hearing, Reports normal oropharynx, D - Neck Neck: Reports normal ROM, Denies lymphadenopathy, Denies rigidity, Denies strid or, Denies thyromegaly Carotids: bilateral: upstroke normal, upstroke delayed Thyroid: bilateral: normal size - Respiratory Respiratory: bilateral: diminished, expiratory wheeze, no rales, rhonchi - Cardiovascular Rhythm: irregularly irregular Heart sounds: normal: S1, S2 Abnormal Heart Sounds: Reports systolic murmur, Reports S3 Gallop - Gastrointestinal General gastrointestinal: Reports hepatomegaly, Reports normal bowel sounds, Reports soft, no tenderness - Integumentary acute and chronic vascular cellulitis of the lower extremity from the knee down with open ulcer right pretibial, toes are dusky blue color 3+ pedal edema bilaterally, dorsalis pedis +2. Please see nursing documentation for details. - Neurologic Neurologic: CNII-XII intact - Musculoskeletal Musculoskeletal: Reports gait not evaluated, Reports generalized weakness, - Psychiatric Psychiatric: A&O x's 1, no appropriate affect, no intact judgment & insight - Labs CBC & Chem 7: 08/15/19 04:54 08/15/19 04:54 Labs: Abnormal Lab Results - Last 24 Hours (Table) 08/14/19 08/14/19 08/14/19 Range/Units 12:00 16:55 20:50 Hgb (13.0-17.5) gm/dL Hct (39.0-53.0) % MCH (25.0-35.0) pg MCHC (31.0-37.0) g/dL RDW (11.5-15.5) % Neutrophils # (Manual) (1.3-7.7) k/uL Lymphocytes # (Manual) (1.0-4.8) k/uL Sodium (137-145) mmol/L BUN (9-20) mg/dL Creatinine (0.66-1.25) mg/dL Glucose (74-99) mg/dL POC Glucose (mg/dL) 169 H 149 H 152 H (75-99) mg/dL 08/15/19 08/15/19 Range/Units 04:54 04:54 Hgb 10.7 L (13.0-17.5) gm/dL Hct 37.7 L (39.0-53.0) % MCH 23.1 L (25.0-35.0) pg MCHC 28.4 L (31.0-37.0) g/dL RDW 16.8 H (11.5-15.5) % Neutrophils # (Manual) 7.83 H (1.3-7.7) k/uL Lymphocytes # (Manual) 0.62 L (1.0-4.8) k/uL Sodium 132 L (137-145) mmol/L BUN 84 H (9-20) mg/dL Creatinine 1.98 H (0.66-1.25) mg/dL Glucose 122 H (74-99) mg/dL POC Glucose (mg/dL) (75-99) mg/dL Microbiology - Last 24 Hours (Table) 08/12/19 16:20 Blood Culture Gram Stain - Preliminary Blood Blood Culture - Preliminary Coagulase Negative Staph 08/12/19 16:20 Blood Culture - Final Blood Assessment and Plan Plan: 1. Acute metabolic encephalopathy secondary to acute kidney injury lower extremity cellulitis and underlying dementia with agitation. Continue local wou nd care, antibiotics. Patient required Haldol which is on at 0.5 mg every 4 hours as needed. 2. Acute kidney injury secondary to poor oral intake. Patient is status post 2 L of IV fluids. Patient will be given additional fluid boluses. Continue to monitor electrolytes and kidney function daily. Nephrology consult. We will hold Lasix, Aldactone, lisinopril. 3. Acute on chronic lower extremity cellulitis with venous stasis ulcers. Patient is on Rocephin and daptomycin added. Consult with Dr. Story and wound care team. Wound culture in progress. 4. Chronically elevated troponins of unclear significance. 5. Hypotension. Patient transferred to the intensive care unit and consult added for Dr. Bradshaw. No vasopressors at this time. Patient is status post IV fluid boluses. Transferred to [facility] floor without telemetry. 6. History of coronary artery disease and previous myocardial infarction. Continue aspirin 325 mg daily, Lopressor has been discontinued due to hypo tension. 7. Chronic systolic heart failure and ischemic cardiomyopathy. Monitor daily electrolytes, I&O's and weight. 8. Chronic atrial fibrillation. Continue eliquis 5 mg twice daily. 9. Hyperlipidemia. Continue Lipitor 40 mg at bedtime. 10. Hypertension, hypertensive cardiovascular disease. 11. COPD, stable without exacerbation. Continue Singulair 10 mg daily. 12. Diabetes mellitus type 2. Continue NovoLog scale before meals and at bedtime. 13. Gout, chronic. Continue allopurinol at reduced dose of 100 mg and colchicine. 14. Benign prostatic hypertrophy. Continue Flomax 0.8 mg daily and monitor for urinary retention. 15. Recurrent depression. Continue Zoloft 50 mg daily and add Seroquel 25 mg at bedtime to help with insomnia. 16. Gastroesophageal reflux disease and GI prophylaxis. Continue omeprazole will. 17. DVT prophylaxis. Eliquis. 18. Possible obstructive sleep apnea. Recommend sleep study as an outpatient. Melatonin for insomnia. Discharge plan: on Friday. Impression and plan of care have been directed as dictated by the signing physician. Ksuum Alvarez nurse practitioner acting as scribe for signing physician.
[2019-08-15] MEDS: ACETAMINOPHEN TAB 325 MG TAB PO PRN (16:29)
[2019-08-15 16:47] LABS: Glucose,Whole Blood 92 mg/dL (75-99)
--- NOTE | 2019-08-15 17:02 | PN ---
PROGRESS NOTE DATE OF SERVICE: 08/15/2019 REASON FOR FOLLOWUP: Right lower extremity wound cellulitis. INTERVAL HISTORY: The patient is currently afebrile. Patient is breathing comfortably. The patient denies having any chest pain, shortness of breath or cough. No nausea, no abdominal pain. No pain to the right leg area. PHYSICAL EXAMINATION: Blood pressure 131/93, pulse 78, temperature is 97.2. He is 91% on room air. General description is an elderly male lying in bed in no distress. Respiratory system: Unlabored breathing, clear to auscultation anteriorly. Heart S1, S2. Regular rate and rhythm. Abdomen soft, no tenderness. Right leg is currently dressed up, no obvious drainage on the dressing. LABS: Hemoglobin is 10.7, white count 8.8, creatinine is 1.98. Blood culture with coagulase- negative Staph. Local wound culture with Staph aureus. Repeat blood cultures remain negative so far. DIAGNOSTIC IMPRESSION AND PLAN: 1. Patient with right lower extremity wound with secondary cellulitis. Antibiotic will be switched over to cefazolin 2 g q.8 hours. Discontinue the Rocephin and daptomycin. 2. Positive blood culture with coagulase negative Staph, likely skin contamination. Followup blood culture has been negative. No need for further workup for the same. MMODL / IJN: [id number] /
[2019-08-15] MEDS: QUEtiapine 25 MG TAB PO SCH (20:35)
[2019-08-15 21:18] LABS: Glucose,Whole Blood 110 mg/dL (75-99)
[2019-08-16 04:58] LABS: Anisocytosis Slight; Basophils % (A) 0 %; Eosinophils # (A) 0.3 k/uL (0-0.7); Eosinophils % (A) 4 %; HCT 36.2 % (39.0-53.0); HGB 10.5 gm/dL (13.0-17.5); Hypochromasia Marked; Lymphocytes % (A) 13 %; MCH 23.5 pg (25.0-35.0); MCV 80.9 fL (80.0-100.0); Mean Platelet Volume 8.2; Monocytes # (A) 0.5 k/uL (0-1.0); Monocytes % (A) 7 %; Neutrophils # (A) 5.5 k/uL (1.3-7.7); Neutrophils % (A) 74 %; Platelet Count 203 k/uL (150-450); Poikilocytosis Slight; RBC 4.47 m/uL (4.30-5.90); RDW 16.5 % (11.5-15.5); WBC 7.5 k/uL (3.8-10.6)
[2019-08-16 05:10] LABS: Calcium 8.8 mg/dL (8.4-10.2); Potassium 4.4 mmol/L (3.5-5.1)
[2019-08-16 06:44] LABS: Glucose,Whole Blood 89 mg/dL (75-99)
[2019-08-16] MEDS: INSULIN ASPART (NovoLOG) 100 UNIT/ML VIAL SQ SCH ×4 (06:59→21:23)
[2019-08-16] MEDS: ACETAMINOPHEN TAB 325 MG TAB PO PRN ×2 (08:37→12:20)
[2019-08-16] MEDS: PANTOPRAZOLE 40 MG TABLET PO SCH (08:38)
[2019-08-16] MEDS: APIXABAN 5 MG TAB PO SCH ×2 (08:38→21:27)
[2019-08-16] MEDS: SERTRALINE 50 MG TAB PO SCH (08:38)
[2019-08-16] MEDS: COLCHICINE 0.6 MG EACH PO SCH ×2 (08:38→21:27)
[2019-08-16] MEDS: ALLOPURINOL 100 MG TAB PO SCH (08:38)
[2019-08-16] MEDS: ASPIRIN 325 MG TAB PO SCH (08:38)
[2019-08-16] MEDS: MONTELUKAST 10 MG TAB PO SCH (08:38)
--- NOTE | 2019-08-16 09:28 | P.PN ---
Subjective Patient is seen in follow-up for acute kidney injury. Renal function is improving. Patient denies chest pain or shortness of breath. However he is not a reliable historian. Oral intake has been fair. No vomiting or diarrhea. Nonoliguric. Vital signs are stable. General: The patient appeared well nourished and normally developed. HEENT: Head exam is unremarkable. Neck is without jugular venous distension. LUNGS: Lungs are clear to auscultation and percussion. Breath sounds decreased. HEART: Rate and Rhythm are regular. First and second heart sounds normal. No murmurs, rubs or gallops. ABDOMEN: Abdominal exam reveals normal bowel sounds. Non-tender and non- distended. No evidence of peritonitis. EXTREMITITES: No clubbing, cyanosis, or edema. Objective - Vital Signs Vital signs: Vital Signs Temp 97.6 F 08/16/19 06:01 Pulse 82 08/16/19 06:01 Resp 18 08/16/19 06:01 BP 121/94 08/16/19 07:00 Pulse Ox 95 08/15/19 20:00 Intake & Output 08/15/19 08/16/19 08/16/19 18:59 06:59 18:59 Intake Total 50 Output Total 1275 1300 Balance -1225 -1300 Intake: IV 50 ceFAZolin 2 gm In Sodium 50 Chloride 0.9% 50 ml @ 100 mls/hr IVPB Q8HR [facility] Rx# :[id number] Output: Urine 1275 1300 Other: Voiding Method Indwelling Catheter - Labs CBC & Chem 7: 08/16/19 04:40 08/16/19 04:43 Labs: Abnormal Lab Results - Last 24 Hours (Table) 08/15/19 08/15/19 08/16/19 Range/Units 11:53 21:16 04:40 Hgb 10.5 L (13.0-17.5) gm/dL Hct 36.2 L (39.0-53.0) % MCH 23.5 L (25.0-35.0) pg MCHC 29.0 L (31.0-37.0) g/dL RDW 16.5 H (11.5-15.5) % BUN (9-20) mg/dL Creatinine (0.66-1.25) mg/dL POC Glucose (mg/dL) 143 H 110 H (75-99) mg/dL 08/16/19 Range/Units 04:43 Hgb (13.0-17.5) gm/dL Hct (39.0-53.0) % MCH (25.0-35.0) pg MCHC (31.0-37.0) g/dL RDW (11.5-15.5) % BUN 67 H (9-20) mg/dL Creatinine 1.42 H (0.66-1.25) mg/dL POC Glucose (mg/dL) (75-99) mg/dL Microbiology - Last 24 Hours (Table) 08/13/19 10:00 Gram Stain - Final Leg - Right Wound Culture - Final Staphylococcus aureus 08/14/19 10:39 Blood Culture - Preliminary Blood No Growth after 24 hours Assessment and Plan Plan: Assessment: 1. Acute kidney injury secondary to ATN secondary to hypotension. Renal function improving. Creatinine 1.42 today. Trace proteinuria on UA. No hydronephrosis noted on kidney ultrasound. 2. Rule out chronic kidney disease. Creatinine in May 2019 was in the range of 1-1.8. 3. Chronic systolic CHF with ejection fraction of less than 20%. Currently compensated. 4. Lower extremity ulcers. 5. Mild metabolic acidosis secondary to acute kidney injury. Improved. 6. Hypotension due to underlying cardiomyopathy and hypovolemia. Improved. Maintained on midodrine. Plan: No changes from nephrology standpoint. Stable to be discharged to ECF. Follow up outpatient in 2 weeks.
--- NOTE | 2019-08-16 10:13 | P.DS ---
Providers Date of admission: 08/12/19 17:34 Expected date of discharge: 08/16/19 Attending physician: Allyson Courtney MD Consults: 08/12/19 21:31 Consult Physician Routine Consulting Provider: Nas Story Consult Reason/Comments: cellulitis Do you want consulting provider notified?: Yes 08/13/19 09:24 Consult Physician Routine Consulting Provider: Madi Spaulding Consult Reason/Comments: EMA Do you want consulting provider notified?: Yes 08/13/19 19:31 Consult Physician Routine Consulting Provider: [facility] Consult Reason/Comments: Chest pain Do you want consulting provider notified?: Already Contacted 08/14/19 09:14 Consult Physician Routine Consulting Provider: Jason Bradshaw Consult Reason/Comments: icu, hypotension Do you want consulting provider notified?: Yes Primary care physician: Pj Pal [facility] Course: This is a 68-year-old male patient of Dr. Pal with past medical history of hypertension with hypertensive cardiovascular disease, hyperlipidemia, ischemic cardiopathy, chronic systolic heart failure, non-ST elevated myocardial infarction, COPD, chronic atrial fibrillation and chronic edema with chronic lower extremity cellulitis and dementia. Patient's caregiver came into his home and found that he had bleeding from his lower extremities where he has chronic wounds and abrasions and had increasing confusion from his baseline. EMS was contacted and patient was brought into [facility] emergency center. He was found to be afebrile but blood pressure was 84/71, pulse ox 99% on room air. WBC 12.4, hemoglobin 11.9. Sodium 135, potassium 5.4, chloride 100, CO2 21, BUN 79 creatinine 2.46. Total bilirubin 1.7, AST 74, ALT 38, alkaline phosphatase 72. Ammonia 13, urine drug screen positive for opiates. Troponins 0.082 and 0.079, albumin 3.3. Urinalysis was protein trace, RBCs 35, hyaline casts 37. Chest x-ray showed no acute process. CAT scan of the brain showed no acute intracranial hemorrhage or midline shift. There was diffuse age-related cerebral atrophy and chronic small vessel ischemic change. EKG was atrial fibrillation rate of 87. The patient was provided 2 L of IV fluids, started on Rocephin and Silvadene ordered for lower extremity wounds. [facility] Vital signs have been stable. Patient has had continued confusion through the night. He [place] and patient was even somewhat combative during the night. Haldol was added last evening. Patient has not slept since admission. Patient gives history of having a problem for a week but then leads to business deal with property in [facility]. Patient had a recent hospitalization in May of this year which time he was treated for acute metabolic encephalopathy thought to be secondary to lower extremity cellulitis and venous stasis ulcers. His troponins were elevated at that time with no sign of acute coronary syndrome. He was seen by both n eurology and psychiatry. He underwent CAT scan of the brain at that time that showed no acute findings, carotid duplex showed no significant stenosis. Echocardiogram was EF of 20 with mild mitral regurgitation, mild tricuspid regurgitation, no pulmonary hypertension. There was a plan for her son to obtain guardianship and unsure if this has been accomplished. Patient was stabilized and then discharged home with VNA. 08/14: Patient became more hypotensive yesterday evening as well as developed left-sided chest pain for which she was moved to the intensive care unit as a overflow for the cardiac stepdown unit. His blood pressure has been borderline overnight, no vasopressors required. He does have intermittent chest pain and also complaining of leg spasms of foot pain. He is on Tylenol for pain. He has not been eating much since yesterday morning. We are going to transition patient to ICU patient in and consult with Dr. Bradshaw. Patient continues to have significant confusion. Patient's son has not obtain guardianship. Plan is for discharge to [facility]. Patient has been afebrile, heart rate 78, blood pressure 95/68, pulse ox 100% on 2 L nasal cannula. Repeat lab work reveals hemoglobin 10, sodium 1:30, potassium 5.2, BUN 89 creatinine 2.30. Blood sugars running between 108 and 143. Patient has been seen by nephrology 08/15: Today patient is seen in the ICU. Dr. Huff has cleared him for MedSurg without telemetry and he is waiting for a MedSurg bed. The pressure is 110/87. Patient is denying any chest pain at this time but is requesting that to help with ambulation be set up for him. Pulse ox 91% on room air, heart rate 78, afebrile. Hemoglobin 10.7, BUN 84 and creatinine 1.98, sodium 132. The patient was quite combative during the night and required 1 dose of Haldol. He slept after that and mental status has been improved. Sr. has been here most of the day but is returning to [place]. Anticipate discharge to subacute rehab tomorrow. 08/16: Patient remains in the intensive care unit awaiting Medr bed. He has had no events overnight. Confusion has been stable and patient did not require Haldol. The patient has been adequately eating. No nausea or vomiting. No diarrhea. Patient has been afebrile, heart rate 82, blood pressure 121/97, pulse ox 97% on room air. Repeat lab work reveals white count 7.5, hemoglobin 10.5, BUN 67 creatinine 1.42. Plan is for discharge to [facility] in hopes the lower extremity wounds will improve with healing. Dr. Story is recommended Keflex for 2 week course. Patient will be discharged to [facility] today in stable condition. Discharge diagnoses: 1. Acute metabolic encephalopathy secondary to acute kidney injury lower extremity cellulitis and underlying dementia with agitation. 2. Acute kidney injury secondary to poor oral intake. 3. Acute on chronic lower extremity cellulitis with venous stasis ulcers. 4. Chronically elevated troponins of unclear significance. 5. Hypotension secondary to cardiomyopathy. 6. History of coronary artery disease and previous myocardial infarction. 7. Chronic systolic heart failure and ischemic cardiomyopathy. 8. Chronic atrial fibrillation. 9. Hyperlipidemia. 10. Hypertension, hypertensive cardiovascular disease. 11. COPD, stable without exacerbation. 12. Diabetes mellitus type 2. 13. Gout, chronic. 14. Benign prostatic hypertrophy. 15. Recurrent depression. 16. Gastroesophageal reflux disease. 17. Possible obstructive sleep apnea. Recommend sleep study as an outpatient. 18. Chronic kidney disease stage III. Discharge plan: [facility] Impression and plan of care have been directed as dictated by the signing physician. Kusum Alvarez nurse practitioner acting as scribe for signing physician. Patient Condition at Discharge: Good Plan - Discharge Summary Discharge Rx Participant: No New Discharge Prescriptions: New Aspirin EC [Ecotrin Low Dose] 81 mg PO DAILY #30 tablet. Metoprolol Tartrate [Lopressor] 12.5 mg PO BID #60 dose Midodrine [ProAmatine] 5 mg PO AC-TID PRN tab PRN Reason: Hypotension QUEtiapine [SEROquel] 25 mg PO HS tab Allopurinol [Zyloprim] 100 mg PO DAILY tab Cephalexin [Keflex] 500 mg PO Q8HR #56 cap Continue Montelukast [Singulair] 10 mg PO DAILY #0 NS Sertraline HCl 50 mg PO DAILY Nitroglycerin Sl Tabs [Nitrostat] 0.4 mg SUBLINGUAL Q5M PRN PRN Reason: Chest Pain Ergocalciferol [Vitamin D2 (DRISDOL)] 50,000 unit PO Q7D Colchicine 0.6 mg PO BID Atorvastatin [Lipitor] 40 mg PO HS Apixaban [Eliquis] 5 mg PO BID Changed Furosemide [Lasix] 20 mg PO DAILY #0 Lisinopril [Zestril] 1.25 mg PO DAILY #30 tab Discontinued Metoprolol Tartrate [Lopressor] 100 mg PO BID Omeprazole [PriLOSEC] 40 mg PO DAILY Aspirin EC [Ecotrin] 325 mg PO DAILY Allopurinol [Zyloprim] 300 mg PO DAILY Spironolactone 50 mg PO BID Oxybutynin Chloride [Oxybutynin Chloride ER] 10 mg PO DAILY Krill Oil 1,000 mg PO DAILY Loperamide HCl [Imodium A-D] 2 mg PO QID PRN PRN Reason: Loose Stool Tamsulosin [Flomax] 0.8 mg PO PC-BRKFST Niacin [Niacin ER] 500 mg PO DAILY Discharge Medication List Montelukast [Singulair] 10 mg PO DAILY #0 NS 08/07/15 [Rx] Sertraline HCl 50 mg PO DAILY 06/19/16 [History] Apixaban [Eliquis] 5 mg PO BID 05/25/19 [History] Atorvastatin [Lipitor] 40 mg PO HS 05/25/19 [History] Colchicine 0.6 mg PO BID 05/25/19 [History] Ergocalciferol [Vitamin D2 (DRISDOL)] 50,000 unit PO Q7D 05/25/19 [History] Nitroglycerin Sl Tabs [Nitrostat] 0.4 mg SUBLINGUAL Q5M PRN 05/25/19 [History] Allopurinol [Zyloprim] 100 mg PO DAILY tab 08/16/19 [Rx] Aspirin EC [Ecotrin Low Dose] 81 mg PO DAILY #30 tablet.dr 08/16/19 [Rx] Cephalexin [Keflex] 500 mg PO Q8HR #56 cap 08/16/19 [Rx] Furosemide [Lasix] 20 mg PO DAILY #0 08/16/19 [Rx] Lisinopril [Zestril] 1.25 mg PO DAILY #30 tab 08/16/19 [Rx] Metoprolol Tartrate [Lopressor] 12.5 mg PO BID #60 dose 08/16/19 [Rx] Midodrine [ProAmatine] 5 mg PO AC-TID PRN tab 08/16/19 [Rx] QUEtiapine [SEROquel] 25 mg PO HS tab 08/16/19 [Rx] Follow up Appointment(s)/Referral(s): Pj Pal MD [Primary Care Provider] - 1 Week (After discharge from [facility]) Discharge Disposition: TRANSFER TO SNF/ECF
--- NOTE | 2019-08-16 11:31 | P.PN ---
Subjective Progress Note Date: 08/16/19 Principal diagnosis: Hypotension On 08/16/2019 patient is seen in follow-up in the intensive care unit, he is awake and alert, oriented to person and place, appears to be in no acute distress, denies any pain, does admit to some exertional shortness of breath, otherwise in no acute distress, his been afebrile. He is being treated for bilateral lower extremity cellulitis, with the wound cultures positive for MSSA. Antibiotic coverage is in the form of cefazolin. Hemodynamically patient has improved, this morning his blood pressure is 121/94, room air pulse ox is 97%, no new chest x-rays, lung sounds are clear to auscultation, today's blood work has been reviewed, and patient's renal profile is improving, BUN is 67 creatinine is 1.42, no nausea vomiting or diarrhea. No acute events overnight, patient has been up with assistance of physical therapy, generally weak, occasionally confused. No other acute events overnight, patient is being discharged to [facility] nursing and rehab today Objective - Vital Signs Vital signs: Vital Signs Temp 97.6 F 08/16/19 06:01 Pulse 82 08/16/19 06:01 Resp 18 08/16/19 06:01 BP 121/94 08/16/19 07:00 Pulse Ox 95 08/15/19 20:00 Intake & Output 08/15/19 08/16/19 08/16/19 18:59 06:59 18:59 Intake Total 50 Output Total 1275 1300 Balance -1225 -1300 Intake: IV 50 ceFAZolin 2 gm In Sodium 50 Chloride 0.9% 50 ml @ 100 mls/hr IVPB Q8HR [facility] Rx# :[id number] Output: Urine 1275 1300 Other: Voiding Method Indwelling Catheter - Exam GENERAL EXAM: Alert, 68-year-old white male, with a blunted facial affect, on room air comfortable in no apparent distress. HEAD: Normocephalic/atraumatic. EYES: Normal reaction of pupils, equal size. Conjunctiva pink, sclera white. NOSE: Clear with pink turbinates. THROAT: No erythema or exudates. NECK: No masses, no JVD, no thyroid enlargement, no adenopathy. CHEST: No chest wall deformity. Symmetrical expansion. LUNGS: Equal air entry with no crackles, wheeze, rhonchi or dullness. CVS: Irregular rate and rhythm, normal S1 and S2, no gallops, no murmurs, no rubs ABDOMEN: Soft, nontender. No hepatosplenomegaly, normal bowel sounds, no guarding or rigidity. EXTREMITIES: No clubbing, lower extremities are wrapped, 1+ lower extremity edema and redness, no cyanosis, 2+ pulses and upper and lower extremities. MUSCULOSKELETAL: Muscle strength and tone normal. SPINE: No scoliosis or deformity SKIN: No rashes CENTRAL NERVOUS SYSTEM: Alert and oriented -2. No focal deficits, tone is nor mal in all 4 extremities. PSYCHIATRIC: Alert and oriented -2. Appropriate affect. Intact judgment and insight. - Labs CBC & Chem 7: 08/16/19 04:40 08/16/19 04:43 Labs: Abnormal Lab Results - Last 24 Hours (Table) 08/15/19 08/15/19 08/16/19 Range/Units 11:53 21:16 04:40 Hgb 10.5 L (13.0-17.5) gm/dL Hct 36.2 L (39.0-53.0) % MCH 23.5 L (25.0-35.0) pg MCHC 29.0 L (31.0-37.0) g/dL RDW 16.5 H (11.5-15.5) % BUN (9-20) mg/dL Creatinine (0.66-1.25) mg/dL POC Glucose (mg/dL) 143 H 110 H (75-99) mg/dL 08/16/19 Range/Units 04:43 Hgb (13.0-17.5) gm/dL Hct (39.0-53.0) % MCH (25.0-35.0) pg MCHC (31.0-37.0) g/dL RDW (11.5-15.5) % BUN 67 H (9-20) mg/dL Creatinine 1.42 H (0.66-1.25) mg/dL POC Glucose (mg/dL) (75-99) mg/dL Microbiology - Last 24 Hours (Table) 08/13/19 10:00 Gram Stain - Final Leg - Right Wound Culture - Final Staphylococcus aureus 08/14/19 10:39 Blood Culture - Preliminary Blood No Growth after 24 hours Assessment and Plan Plan: Assessment: #1. Sepsis related to lower extremity edema, wound cultures positive for MSSA #2. Hypotension related to the above, improved #3. Chronic atrial fibrillation on oral anticoagulation in the form of Eliquis #5. History of congestive heart failure with the systolic dysfunction, cardiomyopathy and EF of 20-25% #6. History of dementia #7. Lifetime nonsmoker #8. GERD/reflux #9. Hyperlipidemia #10. Benign essential hypertension #11. History of previous myocardial infarction #12. Benign prostatic hypertrophy #13. Degenerative disc disease Plan: Clinically patient is stable, hemodynamically is stable, no fever or chills, patient is on cefazolin for MSSA cellulitis and lower extremities, no acute issues overnight, renal profile is improving, continue with oral anticoagulation. Obtain safety precautions, increase activity as tolerated, cecile ramirez is stable for discharge to subacute rehab at [facility] today I performed a history & physical examination of the patient and discussed their management with my nurse practitioner, Shannon Reed. I reviewed the nurse practitioner's note and agree with the documented findings and plan of care. Lung sounds are positive for clear breath sounds. The findings and the impression was discussed with the patient. I attest to the documentation by the nurse practitioner. Time with Patient: Less than 30
[2019-08-16 12:06] LABS: Glucose,Whole Blood 85 mg/dL (75-99)
[2019-08-16 16:55] LABS: Glucose,Whole Blood 116 mg/dL (75-99)
--- NOTE | 2019-08-16 17:47 | PN ---
PROGRESS NOTE DATE OF SERVICE: 08/16/2019 REASON FOR FOLLOWUP: Bilateral lower extremity venous stasis ulcer and secondary cellulitis. INTERVAL HISTORY: The patient was seen on rounds early this afternoon. The patient has been afebrile, breathing comfortably. Denies having any chest pain or any cough. No nausea, no vomiting and denies pain to the lower extremity. PHYSICAL EXAMINATION: Blood pressure 121/94 with a pulse of 82. Temperature 97.6. He is 97% on room air. General description is an elderly male lying in bed in no distress. RESPIRATORY SYSTEM: Unlabored breathing. Clear to auscultation anteriorly. Heart S1, S2. Regular rate and rhythm. ABDOMEN soft, no tenderness. LEGS: Overall slough tissue has decreased. The redness is improved. No drainage. LABS: Hemoglobin is 10.5, white count normal at 7.5, creatinine 1.42. Wound culture with MSSA. DIAGNOSTIC IMPRESSION AND PLAN: 1. Patient with bilateral lower extremity venous stasis ulcer with secondary cellulitis, culture positive for MSSA. The patient did well on cefazolin. Antibiotic was switched over to Keflex 500 mg p.o. t.i.d. for another week. Local care to continue with Medihoney, Praveen wrap to keep the swelling down. 2. Positive blood culture with coagulase-negative Staph, likely skin contamination. No need for further workup for the same. MMODL / IJN: [id number] /
[2019-08-16 21:25] LABS: Glucose,Whole Blood 107 mg/dL (75-99)
[2019-08-16] MEDS: QUEtiapine 25 MG TAB PO SCH (21:27)
[2019-08-17 06:35] LABS: Glucose,Whole Blood 102 mg/dL (75-99)
[2019-08-17] MEDS: INSULIN ASPART (NovoLOG) 100 UNIT/ML VIAL SQ SCH ×2 (07:13→12:22)
--- NOTE | 2019-08-17 08:50 | P.PN ---
Subjective Patient is seen in follow-up for acute kidney injury. Renal function is improving. Patient denies chest pain or shortness of breath. However he is not a reliable historian. Oral intake has been fair. No vomiting or diarrhea. Nonoliguric. No active complaints at this time. Vital signs are stable. General: The patient appeared well nourished and normally developed. HEENT: Head exam is unremarkable. Neck is without jugular venous distension. LUNGS: Lungs are clear to auscultation and percussion. Breath sounds decreased. HEART: Rate and Rhythm are regular. First and second heart sounds normal. No murmurs, rubs or gallops. ABDOMEN: Abdominal exam reveals normal bowel sounds. Non-tender and non- distended. No evidence of peritonitis. EXTREMITITES: No clubbing, cyanosis, or edema. Objective - Vital Signs Vital signs: Vital Signs Temp 98 F 08/17/19 07:00 Pulse 70 08/17/19 07:00 Resp 18 08/17/19 07:00 BP 117/85 08/17/19 07:00 Pulse Ox 95 08/17/19 07:00 Intake & Output 08/16/19 08/17/19 08/17/19 18:59 06:59 18:59 Intake Total 650 Output Total 800 200 Balance -150 -200 Intake: IV 50 ceFAZolin 2 gm In Sodium 50 Chloride 0.9% 50 ml @ 100 mls/hr IVPB Q8HR [facility] Rx# :[id number] Oral 600 Output: Urine 800 200 Other: Voiding Method Indwelling Catheter # Voids 1 # Bowel Movements 1 - Labs CBC & Chem 7: 08/16/19 04:40 08/16/19 04:43 Labs: Abnormal Lab Results - Last 24 Hours (Table) 08/16/19 08/16/19 08/17/19 Range/Units 16:54 21:23 06:33 POC Glucose (mg/dL) 116 H 107 H 102 H (75-99) mg/dL Microbiology - Last 24 Hours (Table) 08/12/19 16:20 Blood Culture Gram Stain - Final Blood Blood Culture - Final Staph capitis SS capitis 08/14/19 10:39 Blood Culture - Preliminary Blood No Growth after 48 hours Assessment and Plan Plan: Assessment: 1. Acute kidney injury secondary to ATN secondary to hypotension. Renal function improving. Creatinine 1.42 as of yesterday. Trace proteinuria on UA. No hydronephrosis noted on kidney ultrasound. 2. Rule out chronic kidney disease. Creatinine in May 2019 was in the range of 1-1.8. 3. Chronic systolic CHF with ejection fraction of less than 20%. Currently compensated. 4. Lower extremity ulcers. 5. Mild metabolic acidosis secondary to acute kidney injury. Improved. 6. Hypotension due to underlying cardiomyopathy and hypovolemia. Improved. Maintained on midodrine. Plan: No changes from nephrology standpoint. Stable to be discharged to ECF. Follow up outpatient in 2 weeks.
--- NOTE | 2019-08-17 09:53 | P.PN ---
Subjective Progress Note Date: 08/17/19 Principal diagnosis: Hypotension On 08/16/2019 patient is seen in follow-up in the intensive care unit, he is awake and alert, oriented to person and place, appears to be in no acute distress, denies any pain, does admit to some exertional shortness of breath, otherwise in no acute distress, his been afebrile. He is being treated for bilateral lower extremity cellulitis, with the wound cultures positive for MSSA. Antibiotic coverage is in the form of cefazolin. Hemodynamically patient has improved, this morning his blood pressure is 121/94, room air pulse ox is 97%, no new chest x-rays, lung sounds are clear to auscultation, today's blood work has been reviewed, and patient's renal profile is improving, BUN is 67 creatinine is 1.42, no nausea vomiting or diarrhea. No acute events overnight, patient has been up with assistance of physical therapy, generally weak, occasionally confused. No other acute events overnight, patient is being discharged to [facility] and rehab today On 08/17/2019 is seen in follow-up in the intensive care unit, he has been over flow for general medical floor. Remains clinically stable, room air pulse ox is 95%, no complaints of shortness of breath, no chest pain, no fever or chills, hemodynamically patient is stable, no acute events overnight, he remains on antibiotics in the form of Kefzol for lower extremity cellulitis. Patient has been up in the chair with assistance, tolerated activity fairly well, remains generally weak, he is awaiting evaluation by physical therapy, and insurance preauthorization for subacute rehab admission. Objective - Vital Signs Vital signs: Vital Signs Temp 98 F 08/17/19 07:00 Pulse 70 08/17/19 07:00 Resp 18 08/17/19 07:00 BP 117/85 08/17/19 07:00 Pulse Ox 95 08/17/19 07:00 Intake & Output 08/16/19 08/17/19 08/17/19 18:59 06:59 18:59 Intake Total 650 Output Total 800 200 Balance -150 -200 Intake: IV 50 ceFAZolin 2 gm In Sodium 50 Chloride 0.9% 50 ml @ 100 mls/hr IVPB Q8HR [facility] Rx# :[id number] Oral 600 Output: Urine 800 200 Other: Voiding Method Indwelling Catheter # Voids 1 # Bowel Movements 1 - Exam GENERAL EXAM: Alert, 68-year-old white male, with a blunted facial affect, on room air comfortable in no apparent distress. HEAD: Normocephalic/atraumatic. EYES: Normal reaction of pupils, equal size. Conjunctiva pink, sclera white. NOSE: Clear with pink turbinates. THROAT: No erythema or exudates. NECK: No masses, no JVD, no thyroid enlargement, no adenopathy. CHEST: No chest wall deformity. Symmetrical expansion. LUNGS: Equal air entry with no crackles, wheeze, rhonchi or dullness. CVS: Irregular rate and rhythm, normal S1 and S2, no gallops, no murmurs, no rubs ABDOMEN: Soft, nontender. No hepatosplenomegaly, normal bowel sounds, no guard ing or rigidity. EXTREMITIES: No clubbing, lower extremities are wrapped, 1+ lower extremity edema and redness, no cyanosis, 2+ pulses and upper and lower extremities. MUSCULOSKELETAL: Muscle strength and tone normal. SPINE: No scoliosis or deformity SKIN: No rashes CENTRAL NERVOUS SYSTEM: Alert and oriented -2. No focal deficits, tone is normal in all 4 extremities. PSYCHIATRIC: Alert and oriented -2. Appropriate affect. Intact judgment and insight. - Labs CBC & Chem 7: 08/16/19 04:40 08/16/19 04:43 Labs: Abnormal Lab Results - Last 24 Hours (Table) 08/16/19 08/16/19 08/17/19 Range/Units 16:54 21:23 06:33 POC Glucose (mg/dL) 116 H 107 H 102 H (75-99) mg/dL Microbiology - Last 24 Hours (Table) 08/12/19 16:20 Blood Culture Gram Stain - Final Blood Blood Culture - Final Staph capitis SS capitis 08/14/19 10:39 Blood Culture - Preliminary Blood No Growth after 48 hours Assessment and Plan Plan: Assessment: #1. Sepsis related to lower extremity edema, wound cultures positive for MSSA #2. Hypotension related to the above, improved #3. Chronic atrial fibrillation on oral anticoagulation in the form of Eliquis #5. History of congestive heart failure with the systolic dysfunction, cardiomyopathy and EF of 20-25% #6. History of dementia #7. Lifetime nonsmoker #8. GERD/reflux #9. Hyperlipidemia #10. Benign essential hypertension #11. History of previous myocardial infarction #12. Benign prostatic hypertrophy #13. Degenerative disc disease Plan: Continue current antibiotics, continue oral anticoagulation. Hemodynamically patient remains stable, denies any specific complaints, increase activity as tolerated, awaiting evaluation by physical therapy and preauthorization for subacute rehab admission. Patient stable to go out of intensive care unit today to general medical floor. I performed a history & physical examination of the patient and discussed their management with my nurse practitioner, Shannon Reed. I reviewed the nurse practitioner's note and agree with the documented findings and plan of care. Lung sounds are positive for clear breath sounds. The findings and the impression was discussed with the patient. I attest to the documentation by the nurse practitioner. Time with Patient: Less than 30
[2019-08-17] MEDS: APIXABAN 5 MG TAB PO SCH (10:51)
[2019-08-17] MEDS: SERTRALINE 50 MG TAB PO SCH (10:51)
[2019-08-17] MEDS: COLCHICINE 0.6 MG EACH PO SCH (10:51)
[2019-08-17] MEDS: MONTELUKAST 10 MG TAB PO SCH (10:51)
[2019-08-17] MEDS: PANTOPRAZOLE 40 MG TABLET PO SCH (10:51)
[2019-08-17] MEDS: ASPIRIN 325 MG TAB PO SCH (10:52)
[2019-08-17] MEDS: ALLOPURINOL 100 MG TAB PO SCH (10:56)
[2019-08-17 11:54] LABS: Glucose,Whole Blood 104 mg/dL (75-99)
--- NOTE | 2019-08-17 12:57 | P.PN ---
Subjective Progress Note Date: 08/16/19 This is a 68-year-old male patient of Dr. Pal with past medical history of hypertension with hypertensive cardiovascular disease, hyperlipidemia, ischemic cardiopathy, chronic systolic heart failure, non-ST elevated myocardial infarction, COPD, chronic atrial fibrillation and chronic edema with chronic lower extremity cellulitis and dementia. Patient's caregiver came into his home and found that he had bleeding from his lower extremities where he has chronic wounds and abrasions and had increasing confusion from his baseline. EMS was contacted and patient was brought into [facility] emergency center. He was found to be afebrile but blood pressure was 84/71, pulse ox 99% on room air. WBC 12.4, hemoglobin 11.9. Sodium 135, potassium 5.4, chloride 100, CO2 21, BUN 79 creatinine 2.46. Total bilirubin 1.7, AST 74, ALT 38, alkaline phosphatase 72. Ammonia 13, urine drug screen positive for opiates. Troponins 0.082 and 0.079, albumin 3.3. Urinalysis was protein trace, RBCs 35, hyaline casts 37. Chest x-ray showed no acute process. CAT scan of the brain showed no acute intracranial hemorrhage or midline shift. There was diffuse age-related cerebral atrophy and chronic small vessel ischemic change. EKG was atrial fibrillation rate of 87. The patient was provided 2 L of IV fluids, started on Rocephin and Silvadene ordered for lower extremity wounds. [facility] Vital signs have been stable. Patient has had continued confusion through the night. He [place] and patient was even somewhat combative during the night. Haldol was added last evening. Patient has not slept since admission. Patient gives history of having a problem for a week but then leads to business deal with property in [facility]. Patient had a recent hospitalization in May of this year which time he was treated for acute metabolic encephalopathy thought to be secondary to lower extremity cellulitis and venous stasis ulcers. His troponins were elevated at that time with no sign of acute coronary syndrome. He was seen by both neurology and psychiatry. He underwent CAT scan of the brain at that time that showed no acute findings, carotid duplex showed no significant stenosis. Echocardiogram was EF of 20 with mild mitral regurgitation, mild tricuspid regurgitation, no pulmonary hypertension. There was a plan for her son to obtain guardianship and unsure if this has been accomplished. Patient was stabilized and then discharged home with VNA. 08/14: Patient became more hypotensive yesterday evening as well as developed left-sided chest pain for which she was moved to the intensive care unit as a overflow for the cardiac stepdown unit. His blood pressure has been borderline overnight, no vasopressors required. He does have intermittent chest pain and also complaining of leg spasms of foot pain. He is on Tylenol for pain. He has not been eating much since yesterday morning. We are going to transition patient to ICU patient in and consult with Dr. Bradshaw. Patient continues to have significant confusion. Patient's son has not obtain guardianship. Plan is for discharge to [facility]. Patient has been afebrile, heart rate 78, blood pressure 95/68, pulse ox 100% on 2 L nasal cannula. Repeat lab work reveals hemoglobin 10, sodium 1:30, potassium 5.2, BUN 89 creatinine 2.30. Blood sugars running between 108 and 143. Patient has been seen by nephrology 08/15: Today patient is seen in the ICU. Dr. Huff has cleared him for MedSurg without telemetry and he is waiting for a MedSurg bed. The pressure is 110/87. Patient is denying any chest pain at this time but is requesting that to help with ambulation be set up for him. Pulse ox 91% on room air, heart rate 78, afebrile. Hemoglobin 10.7, BUN 84 and creatinine 1.98, sodium 132. The patient was quite combative during the night and required 1 dose of Haldol. He slept after that and mental status has been improved. Sr. has been here most of the day but is returning to [place]. Anticipate discharge to subacute rehab tomorrow. 08/16: Patient remains in the intensive care unit awaiting MedSurg bed. He has had no events overnight. Confusion has been stable and patient did not require Haldol. The patient has been adequately eating. No nausea or vomiting. No diarrhea. Patient has been afebrile, heart rate 82, blood pressure 121/97, pulse ox 97% on room air. Repeat lab work reveals white count 7.5, hemoglobin 10.5, BUN 67 creatinine 1.42. Plan is for discharge to [facility] in hopes the lower extremity wounds will improve with healing. Dr. Story is recommended Keflex for 2 week course. Patient is waiting for insurance authorization and will be discharged to [facility] once this is completed. Review of Systems ROS unobtainable: due to mental status Objective - Vital Signs Vital signs: Vital Signs Temp 98 F 08/17/19 07:00 Pulse 70 08/17/19 07:00 Resp 18 08/17/19 07:00 BP 117/85 08/17/19 07:00 Pulse Ox 95 08/17/19 07:00 Intake & Output 08/16/19 08/17/19 08/17/19 18:59 06:59 18:59 Intake Total 650 Output Total 800 200 Balance -150 -200 Intake: IV 50 ceFAZolin 2 gm In Sodium 50 Chloride 0.9% 50 ml @ 100 mls/hr IVPB Q8HR FOR[facility], 1928–1983 Rx# :[id number] Oral 600 Output: Urine 800 200 Other: Voiding Method Indwelling Catheter Indwelling Catheter # Voids 1 # Bowel Movements 1 - Exam General appearance: cooperative, no distress, morbidly obese, patient is in the ICU bed. - EENT Eyes: Reports anicteric sclerae, Reports normal apperance, ENT: Reports hard of hearing, Reports normal oropharynx, D - Neck Neck: Reports normal ROM, Denies lymphadenopathy, Denies rigidity, Denies stridor, Denies thyromegaly Carotids: bilateral: upstroke normal, upstroke delayed Thyroid: bilateral: normal size - Respiratory Respiratory: bilateral: diminished, expiratory wheeze, no rales, rhonchi - Cardiovascular Rhythm: irregularly irregular Heart sounds: normal: S1, S2 Abnormal Heart Sounds: Reports systolic murmur, Reports S3 Gallop - Gastrointestinal General gastrointestinal: Reports hepatomegaly, Reports normal bowel sounds, Reports soft, no tenderness - Integumentary acute and chronic vascular cellulitis of the lower extremity from the knee down with open ulcer right pretibial, toes are dusky blue color 3+ pedal edema bilaterally, dorsalis pedis +2. Please see nursing documentation for details. - Neurologic Neurologic: CNII-XII intact - Musculoskeletal Musculoskeletal: Reports gait not evaluated, Reports generalized weakness, - Psychiatric Psychiatric: A&O x's 1, no appropriate affect, no intact judgment & insight - Labs CBC & Chem 7: 08/16/19 04:40 08/16/19 04:43 Labs: Abnormal Lab Results - Last 24 Hours (Table) 08/16/19 08/16/19 08/17/19 Range/Units 16:54 21:23 06:33 POC Glucose (mg/dL) 116 H 107 H 102 H (75-99) mg/dL Microbiology - Last 24 Hours (Table) 08/12/19 16:20 Blood Culture Gram Stain - Final Blood Blood Culture - Final Staph capitis SS capitis 08/14/19 10:39 Blood Culture - Preliminary Blood No Growth after 48 hours Assessment and Plan Plan: 1. Acute metabolic encephalopathy secondary to acute kidney injury lower extremity cellulitis and underlying dementia with agitation. Continue local wound care, antibiotics. Patient required Haldol which is on at 0.5 mg every 4 hours as needed. 2. Acute kidney injury secondary to poor oral intake. Patient is status post 2 L of IV fluids. Patient will be given additional fluid boluses. Continue to monitor electrolytes and kidney function daily. Nephrology consult. We will hold Lasix, Aldactone, lisinopril. Patient will be resumed on low-dose of Lasix and lisinopril at the time of discharge. 3. Acute on chronic lower extremity cellulitis with venous stasis ulcers. Patient is on Rocephin and daptomycin added. Consult with Dr. Story and wound care team. Wound culture in progress. 4. Chronically elevated troponins of unclear significance. 5. Hypotension. Patient transferred to the intensive care unit and consult added for Dr. Bradshaw. No vasopressors at this time. Patient is status post IV fluid boluses. Transferred to [facility] without telemetry. 6. History of coronary artery disease and previous myocardial infarction. Continue aspirin 325 mg daily, Lopressor has been discontinued due to hypotension. 7. Chronic systolic heart failure and ischemic cardiomyopathy. Monitor daily electrolytes, I&O's and weight. 8. Chronic atrial fibrillation. Continue eliquis 5 mg twice daily. 9. Hyperlipidemia. Continue Lipitor 40 mg at bedtime. 10. Hypertension, hypertensive cardiovascular disease. 11. COPD, stable without exacerbation. Continue Singulair 10 mg daily. 12. Diabetes mellitus type 2. Continue NovoLog scale before meals and at bedtime. 13. Gout, chronic. Continue allopurinol at reduced dose of 100 mg and colchicine. 14. Benign prostatic hypertrophy. Continue Flomax 0.8 mg daily and monitor for urinary retention. 15. Recurrent depression. Continue Zoloft 50 mg daily and add Seroquel 25 mg at bedtime to help with insomnia. 16. Gastroesophageal reflux disease and GI prophylaxis. Continue omeprazole will. 17. DVT prophylaxis. Eliquis. 18. Possible obstructive sleep apnea. Recommend sleep study as an outpatient. Melatonin for insomnia. Discharge plan: on Friday. Impression and plan of care have been directed as dictated by the signing physician. Kusum Alvarez nurse practitioner acting as scribe for signing physician.
[2019-08-17 13:46] VITALS: BP 106/85; PULSE 86; RESP 16; TEMP 97.7
--- NOTE | 2019-08-17 16:09 | PN ---
PROGRESS NOTE DATE OF SERVICE: 08/17/2019 REASON FOR FOLLOWUP: Bilateral lower extremity wounds and cellulitis. INTERVAL HISTORY: The patient is currently afebrile. The patient has been breathing comfortably. The patient denies having any chest pain or any cough. No nausea, no vomiting, no abdominal pain or pain to the lower extremity. PHYSICAL EXAMINATION: Blood pressure 117/85 with a pulse of 70, temperature of 98. He is 95% on room air. General description is an elderly male lying in bed in no distress. RESPIRATORY SYSTEM: Unlabored breathing. Clear to auscultation anteriorly. HEART: S1, S2. Regular rate and rhythm. ABDOMEN: Soft. No tenderness. LEGS: Legs are currently wrapped up. No obvious drainage on the dressing. DIAGNOSTIC IMPRESSION AND PLAN: Patient with bilateral extremity venostasis ulcers with secondary cellulitis. Patient did show overall clinical improvement. Wound culture with MSSA. Plan at this time is to finish therapy with oral Keflex, local wound care with Medihoney Praveen wrap to keep the swelling down. Continue with supportive care. MMODL / IJN: [id number] /
== END 2019-08-17 16:00 | DRG 871 ==
LOC: EC 12:19 → 4SSUR 17:34 → 2SICU 08-13 21:09
PROVIDERS: ADMIT Internal Medicine; ATTEND Internal Medicine
DX: A41.9 Sepsis, unspecified organism (principal); G93.41 Metabolic encephalopathy; N17.0 Acute kidney failure with tubular necrosis; E87.2 Acidosis; F03.91 Unspecified dementia, unspecified severity, with behavioral disturbance; F33.9 Major depressive disorder, recurrent, unspecified; I13.0 Hypertensive heart and chronic kidney disease with heart failure and stage 1 through stage 4 chronic kidney disease, or unspecified chronic kidney disease; I48.20 Chronic atrial fibrillation, unspecified; I50.22 Chronic systolic (congestive) heart failure; L03.115 Cellulitis of right lower limb; L03.116 Cellulitis of left lower limb; I87.313 Chronic venous hypertension (idiopathic) with ulcer of bilateral lower extremity; L97.822 Non-pressure chronic ulcer of other part of left lower leg with fat layer exposed; L97.812 Non-pressure chronic ulcer of other part of right lower leg with fat layer exposed; I95.89 Other hypotension; E11.22 Type 2 diabetes mellitus with diabetic chronic kidney disease; N18.3 Chronic kidney disease, stage 3 (moderate); I87.2 Venous insufficiency (chronic) (peripheral); E78.5 Hyperlipidemia, unspecified; E86.0 Dehydration; E86.1 Hypovolemia; F41.9 Anxiety disorder, unspecified; G47.00 Insomnia, unspecified; I25.10 Atherosclerotic heart disease of native coronary artery without angina pectoris; I25.2 Old myocardial infarction; I25.5 Ischemic cardiomyopathy; J44.9 Chronic obstructive pulmonary disease, unspecified; K21.9 Gastro-esophageal reflux disease without esophagitis; M1A.9XX0 Chronic gout, unspecified, without tophus (tophi); N40.0 Benign prostatic hyperplasia without lower urinary tract symptoms; R79.1 Abnormal coagulation profile; G89.29 Other chronic pain; K57.90 Diverticulosis of intestine, part unspecified, without perforation or abscess without bleeding; M51.36 Other intervertebral disc degeneration, lumbar region; M17.0 Bilateral primary osteoarthritis of knee; M47.819 Spondylosis without myelopathy or radiculopathy, site unspecified; G47.33 Obstructive sleep apnea (adult) (pediatric); R45.1 Restlessness and agitation; R32 Unspecified urinary incontinence; R07.89 Other chest pain; E66.01 Morbid (severe) obesity due to excess calories; Z68.38 Body mass index [BMI] 38.0-38.9, adult; Z79.01 Long term (current) use of anticoagulants; Z79.82 Long term (current) use of aspirin; Z79.899 Other long term (current) drug therapy; Z91.81 History of falling; Z98.42 Cataract extraction status, left eye; Z98.41 Cataract extraction status, right eye; Z96.1 Presence of intraocular lens; Z83.3 Family history of diabetes mellitus; Z82.5 Family history of asthma and other chronic lower respiratory diseases; Z82.49 Family history of ischemic heart disease and other diseases of the circulatory system; Z80.1 Family history of malignant neoplasm of trachea, bronchus and lung
CPT/HCPCS: 36415; 70450; 71046; 76770; 80048; 80053; 80306; 81001; 82140; 83605; 84484; 85025; 85610; 85730; 87040; 87070; 87077; 87186; 87205; 93005; 96361; 96365; 99285